=== PATIENT | male | born 1955 | race Caucasian/White ===

== ENCOUNTER 2020-04-26 10:53 | Outpatient (REF) | payer BC, SELFPAY ==
--- NOTE | 2020-04-26 | US_ITS ---
EXAMINATION: US EXTRACRANIAL CAROTID DUPLEX, BILATERAL CLINICAL INFORMATION: Dizziness, hypertension and hyperlipidemia. COMPARISON: None TECHNIQUE: Real-time ultrasound and Doppler techniques (integrating B-mode 2-D vascular images, Doppler spectral analysis and color-flow Doppler imaging) were utilized to interrogate the extracranial carotid arteries, the vertebral arteries and proximal subclavian arteries bilaterally. The degree of stenosis is determined by criteria similar to NASCET. FINDINGS: Right Side: 1. There is no significant atherosclerotic plaque seen in the bifurcation/proximal ICA region. 2. The common carotid artery PSV proximally is 106 cm/s and distally 107 cm/s. 3. The proximal internal carotid artery velocities are 122 cm/s systolic and 28 cm/s diastolic. 4. The proximal external carotid artery PSV is 141 cm/s. 5. The vertebral artery shows antegrade flow. 6. The subclavian artery waveforms are normal. Left Side: 1. There is mild atherosclerotic plaque seen in the bifurcation/proximal ICA region. 2. The common carotid artery PSV proximally is 104 cm/s and distally 107 cm/s. 3. The proximal internal carotid artery velocities are 62 cm/s systolic and 19 cm/s diastolic. 4. The proximal external carotid artery PSV is 75 cm/s. 5. The vertebral artery shows antegrade flow. 6. The subclavian artery waveforms are normal. IMPRESSION: 1. RIGHT: Normal right internal carotid artery without atherosclerotic plaque or hemodynamically significant stenosis. 2. LEFT: Minimal, non-hemodynamically significant stenosis of the proximal left internal carotid artery corresponding to a 0-49% stenosis by velocity criteria. 3. Antegrade flow seen via the bilateral vertebral arteries.
== END 2020-04-26 10:54 | disposition home or self-care (01) ==
LOC: HO.US 10:53
PROVIDERS: PCP Internal Medicine; Visit Provider Psychiatry & Neurology Neurology
DX: R42 Dizziness and giddiness (principal); I10 Essential (primary) hypertension; E78.5 Hyperlipidemia, unspecified
CPT/HCPCS: 93880

== ENCOUNTER 2020-05-13 11:24 | Outpatient (REF) | payer BC, SELFPAY ==
--- NOTE | 2020-05-13 11:28 | CT_ITS ---
EXAMINATION: CT HEAD WITHOUT CONTRAST CLINICAL INFORMATION: Dizziness COMPARISON: None TECHNIQUE: Contiguous axial imaging was performed from the skull base to vertex without intravenous administration of contrast. This CT examination was performed using dose optimization techniques as appropriate, variously including the following: *Automated exposure control *Adjustment of mA and/or kV according to patient size (this includes techniques or standardized protocols for targeted exams where dose is matched to indication/reason for exam; i.e. extremities or head) *Use of iterative reconstruction technique DLP: 742 mGy-cm FINDINGS: There is no evidence of acute intracranial hemorrhage or territorial infarction. There is encephalomalacia right frontal lobe. No abnormal mass effect or midline shift is seen. Sparks to white matter differentiation is well preserved. No extra-axial fluid collections are identified. The ventricles are normal in size. There is no abnormal attenuation within the brain parenchyma. The osseous structures and soft tissues are normal. The mastoid air cells and visualized portions of the paranasal sinuses are well aerated. There is wax visualized left ovary canal. CT/CT head/brain wo con IMPRESSION: No acute intracranial process seen. Encephalomalacia right frontal lobe from previous insult.
== END 2020-05-13 11:25 | disposition home or self-care (01) ==
LOC: HO.CT 11:24
PROVIDERS: Visit Provider Psychiatry & Neurology Neurology
DX: R42 Dizziness and giddiness (principal)
CPT/HCPCS: 70450

== ENCOUNTER → 2020-10-21 12:26 | Outpatient (REF) | payer BC, SELFPAY | LOC: HO.SL 12:26 | PROVIDERS: PCP Internal Medicine; Visit Provider Psychiatry & Neurology Neurology | DX: G47.33 Obstructive sleep apnea (adult) (pediatric) (principal) | CPT/HCPCS: 95806 ==

== ENCOUNTER 2021-07-22 10:36 | Outpatient (REF) | payer BC, SELFPAY ==
--- NOTE | ~2021-07-22 | MR_ITS ---
MRI OF THE BRAIN WITHOUT IV CONTRAST INDICATION: Progressive supranuclear palsy. Weakness. COMPARISON: Head CT 05/13/2020. TECHNIQUE: Multiplanar multisequence MR imaging of the brain was obtained without IV contrast. FINDINGS: Decreased sagittal midbrain width, decreased midbrain to mara width ratio, humming burden sign morphology of the midbrain, and morning glory morphology appearance of the midbrain, findings in keeping with the reported clinical history of progressive supranuclear palsy. There is no hydrocephalus, extra-axial surface collection, or herniation. There is redemonstrated chronic appearing encephalomalacia and gliosis within the high right frontal lobe. The major flow voids at the skull base are preserved. There is no acute infarct on diffusion-weighted imaging. There is no intracranial hemorrhage on the gradient recalled echo acquisition. The cerebellar tonsils are normally positioned. The craniocervical junction is normal. Osseous marrow signal intensity is homogenous. The visualized soft tissues are unremarkable. MR/MR head/brain wo con IMPRESSION: - Midbrain volume loss and morphology most suggestive of the clinically reported history of progressive supranuclear palsy. - There is redemonstrated chronic appearing encephalomalacia and gliosis within the high right frontal lobe.
[2021-07-22 11:44] LABS: MANUAL DIFF FLAG NO
[2021-07-22 12:16] LABS: Basophils Percent Auto 0.5 % (0-2); Eosinophils Absolute Auto 0.2 X10*3/uL (0.0-0.4); Hematocrit 51.9 % (42.0-52.0); Hemoglobin 17.2 g/dl (14.0-18.0); Imm Gran Abs Auto 0.02 X10*3/uL (0.00-0.03); Imm Gran Pct Auto 0.3 % (0.0-0.4); Lymphocytes Absolute Auto 1.4 X10*3/uL (1.2-4.9); Lymphocytes Percent Auto 18.6 % (20-40); Mean Corpuscular HGB Conc 33.1 g/dl (31.0-36.0); Mean Corpuscular Hemoglobin 31.6 pg (27.0-33.0); Mean Corpuscular Volume 95.2 fL (80.0-98.0); Mean Platelet Volume 10.4 fL (9.4-12.4); Monocytes Absolute Auto 0.7 X10*3/uL (0.1-1.2); Monocytes Percent Auto 9.7 % (2-11); Neutrophils Absolute Auto 5.1 x10*3/uL (2.0-8.3); Neutrophils Percent Auto 68.9 % (45-73); Platelet Count 216 X10*3/uL (160-400); Red Blood Count 5.45 X10*6/uL (4.60-5.80); Red Cell Distribution Width 13.4 % (11.0-16.0); White Blood Count 7.5 X10*3/uL (4.8-10.8)
[2021-07-22 12:41] LABS: Alanine Aminotransferase 45 U/L (0-40); Albumin Level 4.8 g/dL (3.5-5.0); Alkaline Phosphatase 77 U/L (39-117); Anion Gap 10 (12-20); Aspartate Amino Transferase 22 U/L (5-37); Bilirubin Total 0.7 mg/dL (0.0-1.0); Blood Urea Nitrogen 47 mg/dL (9-16); Calcium 10.3 mg/dL (8.4-10.2); Carbon Dioxide 29 mmol/L (22-29); Chloride 101 mmol/L (96-108); Estimated Glomerular Filt Rate 43; Glucose Random 108 mg/dL (60-115); Potassium 4.3 mmol/L (3.3-5.1); Sodium 136 mmol/L (135-145); Total Protein 7.8 g/dL (6.5-8.0)
== END 2021-07-22 10:37 | disposition home or self-care (01) ==
LOC: HO.MRI 10:36
PROVIDERS: Internal Medicine; PCP Internal Medicine; Visit Provider Psychiatry & Neurology Neurology
DX: D75.1 Secondary polycythemia (principal); G23.1 Progressive supranuclear ophthalmoplegia [Steele-Richardson-Olszewski]
CPT/HCPCS: 36415; 70551; 80053; 85025

== ENCOUNTER 2022-08-14 08:38 | Day surgery (SDC) | payer BC, SELFPAY ==
--- NOTE | 2022-08-13 14:40 | HO.ANESPROP2 ---
Documented by User: Shanthi Guerra NP 08/13/22 14:43 HPI - Anesthesia Eval Consult details Narrative: 66yo M for Colonoscopy PMFSH Active Problems Active Problems: All Active Problems (Updated 08/13/22 @ 12:54 by Gabriella Olivares RN) Erythrocytosis (Chronic) Past Medical History Medical History Benign colon polyp CVA (cerebral vascular accident) Diverticulosis Gout High cholesterol HTN (hypertension) Hyperlipemia Hyperuricemia Rosacea Family History Family History (Updated 05/14/20 @ 14:35 by Bev Zhou) Father Liver cancer Father Lung cancer Mother Breast cancer Surgical History Surgical History (Updated 08/14/22 @ 09:04 by Mariam Rosen, ARIAS) H/O cardiac catheterization H/O umbilical hernia repair History of surgery on arm History of tonsillectomy Hx of colonoscopy Social History Social History (Updated 05/14/20 @ 14:36 by Bev Zhou) Are you a primary child care sitter to a significant other at home: No Alcohol intake: current Alcohol intake frequency: a few times a week Alcohol type: hard liquor Patient Tobacco Use Status: Never used Tobacco Use of substances other than those prescribed or required for medical reasons: No Are you DNR?: No Advance Directives: No Advance Directives Information Provided: Yes Meds Allergies Allergy/AdvReac Type Severity Reaction Status Date / Time No Known Allergies Allergy Verified 08/14/22 09:01 [No Known Allergies*] Home Medications Medication Instructions Recorded Confirmed Last Taken Type allopurinol 300 mg tablet 300 mg PO DAILY 05/14/20 05/14/20 08/14/22 07:45 History clobetasol 0.05 % topical cream 1 applic topical BID 05/14/20 05/14/20 Unknown History lisinopril 20 1 tab PO DAILY 05/14/20 05/14/20 Unknown History mg-hydrochlorothiazide 12.5 mg tablet metoprolol succinate 100 mg 100 mg PO DAILY 05/14/20 05/14/20 08/14/22 07:45 History tablet,extended release 24 hr (Toprol XL) rosuvastatin 40 mg tablet (Crestor) 40 mg PO DAILY 05/14/20 05/14/20 08/14/22 07:45 History triamcinolone acetonide 0.5 % 1 applic topical DAILY 05/14/20 05/14/20 Unknown History topical cream aspirin 81 mg tablet,delayed 81 mg PO DAILY 08/13/22 08/13/22 08/07/22 History release atorvastatin 80 mg tablet 80 mg PO DAILY 08/13/22 08/13/22 Unknown History sertraline 100 mg tablet 100 mg PO DAILY 08/13/22 08/13/22 08/14/22 07:45 History Exam Exam Date and Time: August 13, 2022 144 Assessment and Plan Assessment Anesthesia Assessment: Chart Reviewed Documented by User: Aly Vidal MD 08/14/22 09:26 [facility] Past Medical History Medical History Benign colon polyp CVA (cerebral vascular accident) Diverticulosis Gout High cholesterol HTN (hypertension) Hyperlipemia Hyperuricemia Rosacea Family History Family History (Updated 05/14/20 @ 14:35 by Bev Zhou) Father Liver cancer Father Lung cancer Mother Breast cancer Family history of problems with anesthesia: No Surgical History Surgical History (Updated 08/14/22 @ 09:04 by Mariam Rosen RN) H/O cardiac catheterization H/O umbilical hernia repair History of surgery on arm History of tonsillectomy Hx of colonoscopy History of Problems with Anesthesia: No Social History Social History (Updated 05/14/20 @ 14:36 by Bev Zhou) Are you a primary child care sitter to a significant other at home: No Alcohol intake: current Alcohol intake frequency: a few times a week Alcohol type: hard liquor Patient Tobacco Use Status: Never used Tobacco Use of substances other than those prescribed or required for medical reasons: No Are you DNR?: No Advance Directives: No Advance Directives Information Provided: Yes Meds Allergies Allergy/AdvReac Type Severity Reaction Status Date / Time No Known Allergies Allergy Verified 08/14/22 09:01 [No Known Allergies*] Home Medications Medication Instructions Recorded Confirmed Last Taken Type allopurinol 300 mg tablet 300 mg PO DAILY 05/14/20 05/14/20 08/14/22 07:45 History clobetasol 0.05 % topical cream 1 applic topical BID 05/14/20 05/14/20 Unknown History lisinopril 20 1 tab PO DAILY 05/14/20 05/14/20 Unknown History mg-hydrochlorothiazide 12.5 mg tablet metoprolol succinate 100 mg 100 mg PO DAILY 05/14/20 05/14/20 08/14/22 07:45 History tablet,extended release 24 hr (Toprol XL) rosuvastatin 40 mg tablet (Crestor) 40 mg PO DAILY 05/14/20 05/14/20 08/14/22 07:45 History triamcinolone acetonide 0.5 % 1 applic topical DAILY 05/14/20 05/14/20 Unknown History topical cream aspirin 81 mg tablet,delayed 81 mg PO DAILY 08/13/22 08/13/22 08/07/22 History release atorvastatin 80 mg tablet 80 mg PO DAILY 08/13/22 08/13/22 Unknown History sertraline 100 mg tablet 100 mg PO DAILY 08/13/22 08/13/22 08/14/22 07:45 History Exam Airway Mallampati Class: II TM Dist: >3cm Neck ROM: Limited Heart: rrr Lungs: cta Assessment and Plan Final Anesthetic Review Family History of Problems with Anesthesia: No History of Problems with Anesthesia: No NPO: Yes ASA Class: III Final Preanesthetic Review: No Changes in Pt Med Stat, Meds/Allgs Chart Reviewed, Consent Obtained/Reviewed and Anes Risks/Benef Reviewed Patient Risk: Intermediate Procedure Risk: Low Anesthetic Plan Anesthetic Plan: MAC: and Agree w/ Assess. and Plan Disposition: Standard PACU
[2022-08-14 09:02] VITALS: BMI 34.9
[2022-08-14 09:16] VITALS: BP 126/72; PULSE 67; RESP 17; TEMP 36.2; O2SAT 94
[2022-08-14] MEDS: Lactated Ringers 1,000 ML 100 ML IVCONT (09:33)
--- NOTE | 2022-08-14 09:59 | MHC.SHP ---
Pre-Procedural Eval Section A Date of Service: 08/14/22 Section B Chief Complaint: screening Details of Present Illness: see h&p no changes Relevant Family History (Specify if Yes): No Relevant Social History: None Present Medications: see Short Stay Collaborative assessment Medical History: No relevant PMH History of Previous Operations: No relevant previous surgery Allergies: Allergies Allergy/AdvReac Type Severity Reaction Status Date / Time No Known Allergies Allergy Verified 08/14/22 09:01 [No Known Allergies*] Review of Systems Sugical H&P ROS: Negative: Constitution, Cardiovascular, Respiratory, Neurological, Psychiatric, Hem-Onc, Allergic/Immunologic, Gastrointestinal, Genitourinary, Musculoskeletal, Integumentary, Endocrine and Eyes/Ears/Nose/Throat Exam Surgical H&P Exam: Normal: HEENT, Normal: Heart, Normal: Lungs, Normal: Extremities, Normal: Abdomen, Normal: Skin and Normal: Neurological Plan Diagnosis/Plan: Unchanged I have reviewed the history and physical and performed a pertinent physical examination on my patient. No changes have occurred unless specified. Time Spent With Patient Time: Total time managing care of this patient today ____ minutes.
[2022-08-14 10:35] VITALS: BP 89/50; PULSE 66; RESP 16; TEMP 36.7; O2SAT 96
--- NOTE | 2022-08-14 10:37 | PM.OP ---
Brief Operative Note Date of Service: 08/14/22 Pre-op diagnosis: screening Post-op diagnosis: same Procedure: colonoscopy Surgeon: Rhys Vasquez Anesthesia: MAC Was an Bilingual Teacher Aide used for this Procedure?: No Estimated blood loss (mL): 2 Pathology: other Condition: stable Disposition: PACU
[2022-08-14 10:51] VITALS: BP 117/75; PULSE 64; RESP 18; TEMP 36.5; O2SAT 95
--- NOTE | 2022-08-14 21:37 | OP_ITS ---
SURGEON: Rhys Vasquez MD INDICATIONS: Colon cancer screening. PREOPERATIVE DIAGNOSIS: POSTOPERATIVE DIAGNOSIS: PROCEDURE PERFORMED: Colonoscopy to the terminal ileum with biopsy. ESTIMATED BLOOD LOSS: COMPLICATIONS: ANESTHESIA: Medications: Monitored anesthesia care. ASSISTANTS: SPECIMENS: DESCRIPTION OF PROCEDURE: A history and physical was performed. The risks and benefits of the procedure were explained to the patient. Informed consent was obtained. The procedure was performed on 08/14/2022. A digital rectal exam was performed. An Olympus pediatric video colonoscope was introduced into the rectum and advanced to the cecum without difficulty. The cecum was identified by transillumination, palpation, and identification of the ileocecal valve. Examination was performed. The scope was removed. He tolerated the procedure well and was returned to the recovery unit in stable condition. FINDINGS: The terminal ileum was examined and appeared normal. The visualized colonic mucosa was normal. The quality of the prep was good. There were total of 4 polyps identified and removed with the biopsy forceps, all measured less than 5 mm, one was located in the cecum, 2 at 80 cm and a rectal polyp was also removed. There was mild sigmoid diverticulosis. Retroflex examination showed moderate sized internal hemorrhoids. IMPRESSION: Colon polyps. RECOMMENDATION: Follow up the biopsy results. MD AIDEN Castano/MODL / [id number]
== END 2022-08-14 11:20 | disposition home or self-care (01) ==
PROVIDERS: PCP Internal Medicine; Visit Provider Internal Medicine Gastroenterology
PROC: 0DJD8ZZ Inspection of Lower Intestinal Tract, Via Natural or Artificial Opening Endoscopic (ICD-10-PCS; CPT 45378; principal; 2022-08-14 10:10)
DX: Z12.11 Encounter for screening for malignant neoplasm of colon (principal); Z80.0 Family history of malignant neoplasm of digestive organs; Z86.010 Personal history of colon polyps; D12.0 Benign neoplasm of cecum; D12.4 Benign neoplasm of descending colon; K62.1 Rectal polyp; K57.30 Diverticulosis of large intestine without perforation or abscess without bleeding; K64.8 Other hemorrhoids; I10 Essential (primary) hypertension; E78.00 Pure hypercholesterolemia, unspecified; M10.9 Gout, unspecified; Z86.73 Personal history of transient ischemic attack (TIA), and cerebral infarction without residual deficits; Z79.82 Long term (current) use of aspirin; Z79.899 Other long term (current) drug therapy
CPT/HCPCS: 45380; 88305

== ENCOUNTER 2022-11-16 10:28 | Outpatient (REF) | payer BC, SELFPAY ==
--- NOTE | ~2022-11-16 | XR_ITS ---
EXAMINATION: XR SHOULDER, RIGHT CLINICAL INFORMATION: Pain status-post fall. COMPARISON: None available. TECHNIQUE: AP external rotation, Grashey, scapular Y, and axillary views of the right shoulder. FINDINGS: There is bony demineralization. The glenohumeral joint is intact. The acromioclavicular and coracoclavicular intervals are normal. There is mild osteoarthritic change of the acromioclavicular joint. No fracture or dislocation is seen. There is mild distal acromial undersurface irregularity, and there is mild cortical irregularity of the greater tuberosity of the proximal right humerus. No soft tissue calcification or foreign body is seen. There is no right pneumothorax. XR/XR shoulder RT min 2V IMPRESSION: 1. There is mild osteoarthritic change of the right acromioclavicular joint. 2. Findings suggest possible mild right rotator cuff impingement.
== END 2022-11-16 10:29 | disposition home or self-care (01) ==
LOC: HO.XRAY 10:28
PROVIDERS: PCP Internal Medicine; Visit Provider Internal Medicine
DX: Z91.81 History of falling (principal)
CPT/HCPCS: 73030

== ENCOUNTER → 2024-03-15 13:36 | Outpatient (RCR) | payer BC, SELFPAY ==
[2020-05-14 14:24] VITALS: BP 169/90; PULSE 108; RESP 20; TEMP 37.1; O2SAT 96
[2020-05-14 14:25] VITALS: BMI 38.8
--- NOTE | 2020-05-14 14:53 | PM.HEMONCCN ---
Subjective - Subjective Chief complaint: Abnormal blood test Consult date: 05/14/20 Primary Care Provider: Annette Kan MD HPI - Consult Narrative Reason for consult: Erythrocytosis Narrative: Luis Eduardo Ling is a 64 year old male referred for evaluation of erythrocytosis noted on routine blood work. Patient states that he was not aware of this previously. CBC in January and February 2019 revealed hemoglobin of 18.3 and 18.9 respectively. He is a lifelong nonsmoker, denies any history of COPD or sleep apnea. He denies any symptoms such as fever, chills, night sweats, unexplained weight loss, pruritus or facial flushing. He has not been started on any new medications. Review of Systems - Constitutional Reports no additional constitutional complaints, Denies excessive sweating, Denies fatigue, Denies fever(s), Denies poor appetite - Cardiovascular Reports no additional cardiovascular complaints - Respiratory Reports no additional respiratory complaints - Gastrointestinal Reports no additional gastrointestinal complaints Oncology Screenings - ECOG Performance Status ECOG Performance Status: 1 [facility] Medical History: Medical History (Last Updated 05/14/20 @ 14:55 by Vickie Leon MD) Benign colon polyp Gout High cholesterol HTN (hypertension) Hyperlipemia Hyperuricemia Rosacea Family History: Family History (Last Updated 05/14/20 @ 14:35 by Bev Zhou) Father Liver cancer Father Lung cancer Mother Breast cancer Surgical History: Surgical History (Last Updated 05/14/20 @ 14:33 by Bev Zhou) H/O umbilical hernia repair Smoking status: Never smoker Alcohol intake: current Alcohol intake frequency: a few times a week Previous occupational history: french tutor at [employer] Home Medications and Allergies Home Medications Medication Instructions Recorded Confirmed Type allopurinol 300 mg PO DAILY 05/14/20 05/14/20 History clobetasol 1 applic TOPICAL BID 05/14/20 05/14/20 History lisinopril-hydrochlorothiazide 1 tab PO DAILY 05/14/20 05/14/20 History metoprolol succinate 100 mg PO DAILY 05/14/20 05/14/20 History rosuvastatin 40 mg PO DAILY 05/14/20 05/14/20 History triamcinolone acetonide 1 applic TOPICAL DAILY 05/14/20 05/14/20 History Allergies Allergy/AdvReac Type Severity Reaction Status Date / Time No Known Allergies Allergy Unverified 04/04/20 15:43 [No Known Allergies*] Physical Exam Vital signs: Vital Signs Temp 98.8 F 05/14/20 14:24 Pulse 108 H 05/14/20 14:24 Resp 20 05/14/20 14:24 BP 169/90 H 05/14/20 14:24 Pulse Ox 96 05/14/20 14:24 Intake & Output 05/13/20 05/14/20 05/14/20 18:59 06:59 18:59 Other: Weight 96.3 kg Weight 96.3 kg - Constitutional Present: no acute distress - Routine HEENT Exam Head: Present: normal inspection Eye: Present: EOMI - Routine Neck Exam Present: supple. Absent: JVD, lymphadenopathy - Routine Respiratory Exam Present: CTAB - Routine Cardiovascular Exam Cardiovascular: Present: RRR, S1, S2 - Routine Abdominal Exam Present: organomegaly, soft - Routine Extremities Exam Absent: pedal edema - Routine Skin Exam Comments: Facial erythema secondary to rosacea - Routine Neurological Exam Present: alert, oriented X3 Assessment and Plan (1) Erythrocytosis Status: Acute This is a 64-year-old male with chronic intermittent erythrocytosis. Blood work in February 2020 revealed hemoglobin of 17.3 gram/dL with hematocrit of 52.3%. Normal WBC and platelet count. He is a nonsmoker and does not have any underlying lung problems such as COPD or sleep apnea. He had a CT abdomen/pelvis in February 2019 which was negative for any renal neoplasms, he did have kidney stones. Causes of erythrocytosis such as polycythemia vera has to be ruled out. Blood work which includes serum erythropoietin level and JAK2 mutation has been ordered. Secondary erythrocytosis could be seen with certain tumors, hypoxemia related to lung problems and smoking. Certain Hereditary causes for erythrocytosis related to mutations in erythropoietin receptor can also be seen. Depending on above blood work, further recommendations to be made. I thank you very much for this consultation. Follow-up in 1 month.
--- NOTE | 2020-05-21 09:38 | MHC.HEMONCSW ---
LETTER SENT TO [place] DEPT. AT [facility] FOR A ROCKY 2 TEST. REASON....ADVANCED BENEFIT DETERMINATION. WAIT DECISION, COULD BE 2-3 WEEKS.
[2020-06-11 12:53] LABS: MANUAL DIFF FLAG NO
[2020-06-11 13:00] LABS: Basophils Percent Auto 0.6 % (0-2); Eosinophils Absolute Auto 0.1 X10*3/uL (0.0-0.4); Eosinophils Percent Auto 1.4 % (0-4); Hematocrit 49.3 % (42-52); Hemoglobin 16.7 g/dl (14.0-18.0); Imm Gran Abs Auto 0.02 X10*3/uL (0.00-0.03); Imm Gran Pct Auto 0.3 % (0.0-0.4); Immature Retic Fraction 14.7 % (2.3-13.4); Lymphocytes Absolute Auto 1.3 X10*3/uL (1.2-4.9); Mean Corpuscular HGB Conc 33.9 g/dl (31.0-36.0); Mean Corpuscular Hemoglobin 31.7 pg (27.0-33.0); Mean Corpuscular Volume 93.5 fL (80-98); Mean Platelet Volume 10.2 fL (9.4-12.4); Monocytes Absolute Auto 0.5 X10*3/uL (0.1-1.2); Monocytes Percent Auto 7.3 % (2-11); Neutrophils Percent Auto 72.4 % (45-73); Platelet Count 191 X10*3/uL (160-400); Red Blood Count 5.27 X10*6/uL (4.60-5.80); Red Cell Distribution Width 13.4 % (11.0-16.0); Retic HGB Equivalent 37.3 pg (30.0-35.0); Reticulocyte Percent 1.8 % (0.5-1.8); Reticulocytes Absolute 0.096 X10*6/uL (0.026-0.095); White Blood Count 6.9 X10*3/uL (4.8-10.8)
--- NOTE | 2020-06-11 13:20 | MHC.HEMONCSW ---
SPOKE WITH CHRIS AT [facility]. ROCKY 2 APPROVED. AUTH# [id number] DATE RANGE....06/07 TO 12/05/20. ARIAS JULIEN SETTING APPT FOR THIS TEST WITH PT.
[2020-06-11 13:33] LABS: Alanine Aminotransferase 29 U/L (0-40); Albumin Level 4.2 g/dL (3.5-5.0); Alkaline Phosphatase 90 U/L (39-117); Anion Gap 12 (12-20); Aspartate Amino Transferase 20 U/L (5-37); Bilirubin Total 0.4 mg/dL (0.0-1.0); Blood Urea Nitrogen 23 mg/dL (9-16); Calcium 9.5 mg/dL (8.4-10.2); Carbon Dioxide 28 mmol/L (22-29); Chloride 103 mmol/L (96-108); Creatinine Clr Calc Pharmacy 73.2; Estimated Glomerular Filt Rate > 60; Glucose Random 103 mg/dL (60-115); Potassium 4.2 mmol/l (3.3-5.1); Sodium 139 mmol/L (135-145)
--- NOTE | 2020-06-11 16:22 | MHC.HEMONC ---
Pt here for labs. Was waiting for insurance authorization for JAKK 2 test. Had labs done and left, then phone call received by Avelina MOHAN that test was approved. Pt was called to schedule to come back for lab test, message left.
[2020-06-12 18:42] LABS: Erythropoietin (EPO) 21.7 mIU/mL (2.6-18.5)
--- NOTE | 2020-06-25 13:10 | PM.HEMONCPN ---
Medical Summary - Medical Summary Date of Service: 06/25/20 Chief complaint: Follow-up Medical Summary: Diagnosis: Erythrocytosis CBC in January and February 2019 revealed hemoglobin of 18.3 and 18.9 respectively. He is a lifelong nonsmoker, no history of COPD or sleep apnea. Interval History Interval history: Patient is here in follow-up. He is doing okay, a little concerned because of findings on a brain scan. He has memory problems, he seeing a neurologist for this. He denies any headache, dizziness, chest pain or shortness of breath. He is here for results of blood work from the last visit. He has been drinking more water lately. Review of Systems - Constitutional Reports no additional constitutional complaints - Eyes Reports no additional eye complaints - ENT Reports no additional ear, nose, mouth, and throat complaints - Cardiovascular Reports no additional cardiovascular complaints - Respiratory Reports no additional respiratory complaints - Gastrointestinal Reports no additional gastrointestinal complaints - Genitourinary Genitourinary: Reports no additional male genitourinary complaints - Musculoskeletal Reports no additional musculoskeletal complaints - Integumentary/Breasts Skin/Breast: Reports no additional skin complaints - Neurologic Reports no additional neurologic complaints - Psychiatric Reports no additional psychiatric complaints - Endocrine Reports no additional endocrine complaints - Hematologic/Lymphatic Reports no additional hematologic/lymphatic complaints - Allergic/Immunologic Reports no additional allergic/immunologic complaints [facility] Medical History: Medical History (Last Updated 05/14/20 @ 14:55 by Vicike Leon MD) Benign colon polyp Gout High cholesterol HTN (hypertension) Hyperlipemia Hyperuricemia Rosacea Family History: Family History (Last Updated 05/14/20 @ 14:35 by Bev Zhou) Father Liver cancer Father Lung cancer Mother Breast cancer Surgical History: Surgical History (Last Updated 05/14/20 @ 14:33 by Bev Zhou) H/O umbilical hernia repair Smoking status: Never smoker Home Medications and Allergies Home Medications Medication Instructions Recorded Confirmed Type allopurinol 300 mg PO DAILY 05/14/20 05/14/20 History clobetasol 1 applic TOPICAL BID 05/14/20 05/14/20 History lisinopril-hydrochlorothiazide 1 tab PO DAILY 05/14/20 05/14/20 History metoprolol succinate 100 mg PO DAILY 05/14/20 05/14/20 History rosuvastatin 40 mg PO DAILY 05/14/20 05/14/20 History triamcinolone acetonide 1 applic TOPICAL DAILY 05/14/20 05/14/20 History Allergies Allergy/AdvReac Type Severity Reaction Status Date / Time No Known Allergies Allergy Unverified 04/04/20 15:43 [No Known Allergies*] Exam Vital signs: Vital Signs Temp 98.8 F 05/14/20 14:24 Pulse 108 H 05/14/20 14:24 Resp 20 05/14/20 14:24 BP 169/90 H 05/14/20 14:24 Pulse Ox 96 05/14/20 14:24 Weight 96.3 kg Body Mass Index 38.8 - Constitutional Present: no acute distress - Routine HEENT Exam Head: Present: normal inspection - Routine Respiratory Exam Present: CTAB - Routine Cardiovascular Exam Cardiovascular: Present: RRR, S1, S2 - Routine Abdominal Exam Present: organomegaly, soft - Routine Extremities Exam Absent: pedal edema - Routine Neurological Exam Present: alert, oriented X3 Data - Labs CBC & Chem 7: 06/11/20 12:51 06/11/20 12:51 Labs: 06/11/20 12:51 Complete Blood Count Auto Diff Routine Comprehensive Met. Panel Routine Erythropoietin (EPO) Routine Reticulocyte Count Routine Laboratory Last Values WBC 6.9 X10*3/uL (4.8-10.8) 06/11/20 12:51 RBC 5.27 X10*6/uL (4.60-5.80) 06/11/20 12:51 Hgb 16.7 g/dl (14.0-18.0) 06/11/20 12:51 Hct 49.3 % (42-52) 06/11/20 12:51 MCV 93.5 fL (80-98) 06/11/20 12:51 MCH 31.7 pg (27.0-33.0) 06/11/20 12:51 MCHC 33.9 g/dl (31.0-36.0) 06/11/20 12:51 RDW 13.4 % (11.0-16.0) 06/11/20 12:51 Plt Count 191 X10*3/uL (160-400) 06/11/20 12:51 MPV 10.2 fL (9.4-12.4) 06/11/20 12:51 Immature Gran % (Auto) 0.3 % (0.0-0.4) 06/11/20 12:51 Neut % (Auto) 72.4 % (45-73) 06/11/20 12:51 Lymph % (Auto) 18.0 % (20-40) L 06/11/20 12:51 [place] % (Auto) 7.3 % (2-11) 06/11/20 12:51 Eos % (Auto) 1.4 % (0-4) 06/11/20 12:51 Baso % (Auto) 0.6 % (0-2) 06/11/20 12:51 Lymph # (Auto) 1.3 X10*3/uL (1.2-4.9) 06/11/20 12:51 [place] # (Auto) 0.5 X10*3/uL (0.1-1.2) 06/11/20 12:51 Eos # (Auto) 0.1 X10*3/uL (0.0-0.4) 06/11/20 12:51 Baso # (Auto) 0.0 X10*3/uL (0.0-0.2) 06/11/20 12:51 Abs Immat Gran (auto) 0.02 X10*3/uL (0.00-0.03) 06/11/20 12:51 Absolute Neuts (auto) 5.0 X10*3/uL (2.0-8.3) 06/11/20 12:51 Absolute Nucleated RBC 0.000 X10*3/uL (0.0-0.012) 06/11/20 12:51 Nucleated RBC % (auto) 0.0 /100WBC (0.0-0.2) 06/11/20 12:51 Absolute Retic 0.096 X10*6/uL (0.026-0.095) H 06/11/20 12:51 Percent Retic 1.8 % (0.5-1.8) 06/11/20 12:51 Immature Retic Fraction 14.7 % (2.3-13.4) H 06/11/20 12:51 Retic Hgb Equivalent 37.3 pg (30.0-35.0) H 06/11/20 12:51 Sodium 139 mmol/L (135-145) 06/11/20 12:51 Potassium 4.2 mmol/l (3.3-5.1) 06/11/20 12:51 Chloride 103 mmol/L (96-108) 06/11/20 12:51 Carbon Dioxide 28 mmol/L (22-29) 06/11/20 12:51 Anion Gap 12 (12-20) 06/11/20 12:51 BUN 23 mg/dL (9-16) H 06/11/20 12:51 Creatinine 1.00 mg/dL (0.5-1.4) 06/11/20 12:51 Estim Creat Clear Calc 73.2 06/11/20 12:51 Estimated GFR > 60 06/11/20 12:51 Random Glucose 103 mg/dL (60-115) 06/11/20 12:51 Calcium 9.5 mg/dL (8.4-10.2) 06/11/20 12:51 Erythropoietin 21.7 mIU/mL (2.6-18.5) H 06/11/20 12:51 Total Bilirubin 0.4 mg/dL (0.0-1.0) 06/11/20 12:51 AST 20 U/L (5-37) 06/11/20 12:51 ALT 29 U/L (0-40) 06/11/20 12:51 Alkaline Phosphatase 90 U/L (39-117) 06/11/20 12:51 Total Protein 7.0 g/dL (6.5-8.0) 06/11/20 12:51 Albumin 4.2 g/dL (3.5-5.0) 06/11/20 12:51 Progress Note: A/P (1) Erythrocytosis Status: Chronic Assessment and plan: 1. This is a 64-year-old male with chronic intermittent erythrocytosis. Blood work in May 2020 revealed hemoglobin of 16.7 gram/dL with hematocrit of 49.3%. This is an improvement from previous numbers. He has been hydrating himself better which could be a reason. Serum erythropoietin level is elevated suggesting secondary erythrocytosis. Rest of hematological workup he is pending. He had a CT abdomen/pelvis in February 2019 which was negative for any renal neoplasms, he did have kidney stones. I have asked him to start taking a baby aspirin. Follow-up in 3 months. - Time Spent With Patient Total time spent is greater than 50% in coordination of care (as documented) at patient's floor/unit and/or counseling patient: 15 - 24 minutes
[2020-07-04 18:23] LABS: JAK2 CALR Exon 9 Mutation Not Detected (Not Detected); JAK2 CSF3R Exon 14/17 Mutation Not Detected (Not Detected); JAK2 Indication Not Given; JAK2 MPL Exon 10 Mutation Not Detected (Not Detected); JAK2 V617F Mutation Not Detected (Not Detected)
== END | disposition home or self-care (01) ==
LOC: HO.ONC 05-14 13:47
PROVIDERS: PCP Internal Medicine; Referring Provider Internal Medicine; Visit Provider Internal Medicine
DX: D75.1 Secondary polycythemia (principal)
CPT/HCPCS: 36415; 80053; 81403; 82668; 85025; 85045; 99204; 99214

== ENCOUNTER 2024-10-25 10:14 | Outpatient (REF) | payer BC, SELFPAY ==
--- NOTE | ~2024-10-25 | XR_ITS ---
EXAMINATION: XR SHOULDER 2 OR MORE VIEWS LEFT HISTORY: FALL COMPARISON: There are no prior studies available for comparison. FINDINGS: Four views of the left shoulder are submitted. Osseous mineralization is normal. An intramedullary elijah is seen in the numerous. There is no fracture or dislocation. The glenohumeral joint is maintained. There is moderate degenerative change of the AC joint. Tiny soft tissue density and metallic fragments are seen about the shoulder which may be postoperative in nature. XR/XR shoulder LT min 2V IMPRESSION: No evidence of acute fracture of the left shoulder. Electronically signed by: Luis Eduardo Foy MD 10/25/2024 12:00 PM EDT
--- OUTSIDE RECORDS SUMMARY | 2024-10-25 11:34 | XMS_ITS | Clinical Summary ---
Author Organization [facility] Address [address] [place] [address] Phone Care Team Providers Care Ton Container Filler Name Role Phone Annette Kan MD Primary Care Provider [phone] Social History Tobacco Use Types Packs/Day Years Used Date Smoking Tobacco: Never Assessed Sex and Gender Information Value Date Recorded Sex Assigned at Not on file Legal Sex Male 10:58 PM EST Gender Identity Not on file Sexual Orientation Not on file Plan of Treatment Health Maintenance Due Date Last Done Comments DTaP,Tdap,and Td Vaccines (1 - Tdap) 1972 Pneumococcal Vaccine: 50+ Ye ars (1 of 1 - PCV) 10/24/2003 Zoster Vaccines (1 of 2) 10/24/2003 Abdominal Aortic Aneurysm (A AA) Screen 06/21/2022 Colorectal Cancer Screening: Colonoscopy 06/21/2022 Depression Screening 06/21/2022 Falls Risk Assessment 06/21/2022 Hepatitis C Screening 06/21/2022 Social Influencers of Health Screening 06/21/2022 COVID-19 Vaccine ( - 2023-2 5 season) 2024 Influenza Vaccine (#1) 2024 RSV Immunization Adult Patie nts (1 - 1-dose 75+ series) 2028 Cholesterol Screening (Lipid Panel) 07/20/2029 07/20/2024 HIB Vaccines Aged Out No longer eligi ble based on patient's age to complete this topic HPV Vaccines Aged Out No longer eligi ble based on patient's age to complete this topic Hepatitis A Vaccines Aged Out No long er eligible based on patient's age to complete this topic Hepatitis B Vaccines Aged Out No long er eligible based on patient's age to complete this topic IPV Vaccines Aged Out No longer eligi ble based on patient's age to complete this topic MMR Vaccines Aged Out No longer eligi ble based on patient's age to complete this topic Meningococcal ACWY Vaccine Aged Out N o longer eligible based on patient's age to complete this topic Meningococcal B Vaccine Aged Out No l onger eligible based on patient's age to complete this topic RSV Immunization Patients Un henry 20 months Aged Out No longer eligible b ased on patient's age to complete this topic Varicella Vaccines Aged Out No longer eligible based on patient's age to complete this topic Procedures Procedure Name Priority Date/Time Associated Diagnosis Comments LIPID PANEL WITH REFLEX TO DIRECT LDL Routine 07/20/2024 9:40 AM EST Benign prostatic hyperplasia with lower urinary tract symptoms Other psoriasis Progressive supranuclear ophthalmoplegia (avmebm-Zdbjpdifyo-xlvh ewski) ([facility]) Pure hypercholesterolemia, unspecified from Last 3 Months or Most Recently Relevant to Health Maintenance Results * (ABNORMAL) Lipid panel with reflex to direct LDL (07/20/2024 9:40 AM EST) Cholesterol 182 0 - 200 mg/dL LAB CHEMISTRY METHOD 07/20/2024 2:58 PM [facility] Triglycerides 83 0 - 150 mg/dL LAB CHEMISTRY METHOD 07/20/2024 2:58 PM [facility] HDL 57 >=40 mg/dL LAB CHEMISTRY METHOD 07/20/2024 2:58 PM [facility] LDL Calculated 108(H) 0 - 100 mg/dL LAB CHEMISTRY METHOD 07/20/2024 2:58 PM [facility] VLDL Cholesterol Ke 16.6 mg/dL LAB CHEMISTRY METHOD 07/20/2024 2:58 PM [facility] Non HDL Chol. (LDL+VLDL) 125 <145 mg/dL LAB CHEMISTRY METHOD 07/20/2024 2:58 PM [facility] Chol/HDL Ratio 3.2 0.0 - 4.4 LAB CHEMISTRY METHOD 07/20/2024 2:58 PM [facility] Blood Venous blood specimen / Unknown 07/20/2024 9:40 AM EST 07/20/2024 2:14 PM EST us Annette Kan MD LAB BLOOD ORDERABLES Final Re sult [facility] [place] ([facility]) [facility] [address] [place] [address], [place] [phone] from Last 3 Months or Most Recently Relevant to Health Maintenance Insurance MEDICARE [facility] Care Teams Ton Container Filler Relationship Specialty Start Date End Date Annette Kan MD [address] [place] [address] [place] [address] PCP - General Internal Medicine 07/20/24
--- OUTSIDE RECORDS SUMMARY | 2024-10-25 11:34 | XMS_ITS | Encounter Summary ---
Author Organization [facility] Address [address] [place] [address] Care Team Providers Care Channel Cementer Outsole Machine Name Role Phone Annette Kan MD Primary Care Provider [phone] Encounter Details Date Type Department Care Team (Latest Contact Info) Description 07/20/2024 Lab Requisition [facility] - Main Lab [address] [facility] [place] [address] Annette Kan MD [address] [place] [address] [place] [address] Benign prostatic hyperplasia with lower urinary tract symptoms; Other psoriasis; Progressive supranuclear ophthalmoplegia (duxvls-Cjiyzyiqqm-xhal ewski) (CMS/HCC); Pure hypercholesterolemia, unspecified Social History Tobacco Use Types Packs/Day Years Used Date Smoking Tobacco: Never Assessed Sex and Gender Information Value Date Recorded Sex Assigned at Not on file Legal Sex Male 10:58 PM EST Gender Identity Not on file Sexual Orientation Not on file documented as of this encounter Plan of Treatment Not on file documented as of this encounter Procedures Procedure Name Priority Date/Time Associated Diagnosis Comments PROSTATE SPECIFIC ANTIGEN SCREEN Routine 07/20/2024 9:40 AM EST Benign prostatic hyperplasia with lower urinary tract symptoms Other psoriasis Progressive supranuclear ophthalmoplegia (spcqay-Urhnrdadal-vml zewski) (CMS/HCC) Pure hypercholesterolemia, unspecified LIPID PANEL WITH REFLEX TO DIRECT LDL Routine 07/20/2024 9:40 AM EST Benign prostatic hyperplasia with lower urinary tract symptoms Other psoriasis Progressive supranuclear ophthalmoplegia (luxrma-Pkgoxxlare-kqe zewski) (CMS/HCC) Pure hypercholesterolemia, unspecified CBC WITH AUTO DIFFERENTIAL Routine 07/20/2024 9:40 AM EST Benign prostatic hyperplasia with lower urinary tract symptoms Other psoriasis Progressive supranuclear ophthalmoplegia (kgowhg-Clbodcsebz-zks zewski) (CMS/HCC) Pure hypercholesterolemia, unspecified CBC AND DIFFERENTIAL Routine 07/20/2024 9:40 AM EST Benign prostatic hyperplasia with lower urinary tract symptoms Other psoriasis Progressive supranuclear ophthalmoplegia (yauyfv-Dshqqcecyw-ajg zewski) (CMS/HCC) Pure hypercholesterolemia, unspecified COMPREHENSIVE METABOLIC PANEL Routine 07/20/2024 9:40 AM EST Benign prostatic hyperplasia with lower urinary tract symptoms Other psoriasis Progressive supranuclear ophthalmoplegia (ekjern-Zdeolckpvw-lsf zewski) (CMS/HCC) Pure hypercholesterolemia, unspecified documented in this encounter Results * CBC auto differential (07/20/2024 9:40 AM EST) WBC 6.7 4.8 - 10.8 K/mcL LAB HEMETOLOGY METHOD 07/20/2024 2:35 PM [facility] RBC 4.80 4.50 - 5.50 M/mcL LAB HEMETOLOGY METHOD 07/20/2024 2:35 PM [facility] Hemoglobin 15.4 13.5 - 17.5 g/dL LAB HEMETOLOGY METHOD 07/20/2024 2:35 PM [facility] Hematocrit 46.5 42.0 - 54.0 % LAB HEMETOLOGY METHOD 07/20/2024 2:35 PM [facility] MCV 96.3 79.0 - 98.0 FL LAB HEMETOLOGY METHOD 07/20/2024 2:35 PM [facility] MCH 31.9 27.0 - 32.0 pcg LAB HEMETOLOGY METHOD 07/20/2024 2:35 PM [facility] MCHC 33.1 32.0 - 37.0 g/dL LAB HEMETOLOGY METHOD 07/20/2024 2:35 PM [facility] RDW 13.2 11.0 - 15.0 % LAB HEMETOLOGY METHOD 07/20/2024 2:35 PM [facility] Platelets 181 130 - 400 K/mcL LAB HEMETOLOGY METHOD 07/20/2024 2:35 PM [facility] MPV 10.7 7.0 - 11.0 FL LAB HEMETOLOGY METHOD 07/20/2024 2:35 PM [facility] NRBC 0.0 <1.0 % LAB HEMETOLOGY METHOD 07/20/2024 2:35 PM [facility] NRBC Absolute 0.00 <0.10 K/mcL LAB HEMETOLOGY METHOD 07/20/2024 2:35 PM [facility] Neutrophils Relative 65.9 % LAB HEMETOLOGY METHOD 07/20/2024 2:35 PM [facility] Lymphocytes Relative 21.2 % LAB HEMETOLOGY METHOD 07/20/2024 2:35 PM [facility] Monocytes Relative 9.5 % LAB HEMETOLOGY METHOD 07/20/2024 2:35 PM [facility] Eosinophils Relative 2.3 % LAB HEMETOLOGY METHOD 07/20/2024 2:35 PM [facility] Basophils Relative 0.8 % LAB HEMETOLOGY METHOD 07/20/2024 2:35 PM [facility] Immature Granulocytes Relative 0.3 % LAB HEMETOLOGY METHOD 07/20/2024 2:35 PM [facility] Neutrophils Absolute 4.40 1.50 - 7.00 K/mcL LAB HEMETOLOGY METHOD 07/20/2024 2:35 PM [facility] Lymphocytes Absolute 1.41 1.00 - 5.00 K/mcL LAB HEMETOLOGY METHOD 07/20/2024 2:35 PM [facility] Monocytes Absolute 0.63 0.20 - 1.00 K/mcL LAB HEMETOLOGY METHOD 07/20/2024 2:35 PM EST [facility] Eosinophils Absolute 0.15 0.00 - 0.50 K/[facility] LAB HEMETOLOGY METHOD 07/20/2024 2:35 PM EST [facility] Basophils Absolute 0.05 0.00 - 0.20 K/[facility] LAB HEMETOLOGY METHOD 07/20/2024 2:35 PM EST [facility] Immature Granulocytes Absolute 0.02 0.00 - 0.03 K/[facility] LAB HEMETOLOGY METHOD 07/20/2024 2:35 PM EST [facility] Blood Venous blood specimen / Unknown 07/20/2024 9:40 AM EST 07/20/2024 2:14 PM EST Annette Kan MD LAB BLOOD ORDERABLES Final Re sult Performing Organization Address [facility]/ZIP Co de Phone Number [facility] [address] [place] [address], [place] [phone] * Prostate specific antigen screen (07/20/2024 9:40 AM EST) Pathologist [facility] PSA 4.00 0.00 - 4.00 ng/mL LAB CHEMISTRY METHOD 07/20/2024 3:03 PM EST [facility] Blood Venous blood specimen / Unknown 07/20/2024 9:40 AM EST 07/20/2024 2:14 PM EST Narrative [facility] - 07/20/2024 3:03 PM EST The Siemens Advia Centaur Chemiluminescent Immunoassay is used. Results obtained with different assay methods or kits cannot be used interchangeably. Results cannot be interpreted as absolute evidence of the presence or absence of malignant disease. us Annette Kan MD LAB BLOOD ORDERABLES Final Re sult Performing Organization Address City/[facility]/ZIP Co de Phone Number [facility] [address] [place] [address], [place] [phone] * (ABNORMAL) Lipid panel with reflex to direct LDL (07/20/2024 9:40 AM EST) Cholesterol 182 0 - 200 mg/dL LAB CHEMISTRY METHOD 07/20/2024 2:58 PM EST [facility] Triglycerides 83 0 - 150 mg/dL LAB CHEMISTRY METHOD 07/20/2024 2:58 PM EST [facility] HDL 57 >=40 mg/dL LAB CHEMISTRY METHOD 07/20/2024 2:58 PM EST [facility] LDL Calculated 108(H) 0 - 100 mg/dL LAB CHEMISTRY METHOD 07/20/2024 2:58 PM [facility] VLDL Cholesterol Ke 16.6 mg/dL LAB CHEMISTRY METHOD 07/20/2024 2:58 PM [facility] Non HDL Chol. (LDL+VLDL) 125 <145 mg/dL LAB CHEMISTRY METHOD 07/20/2024 2:58 PM EST [facility] Chol/HDL Ratio 3.2 0.0 - 4.4 LAB CHEMISTRY METHOD 07/20/2024 2:58 PM [facility] Blood Venous blood specimen / Unknown 07/20/2024 9:40 AM EST 07/20/2024 2:14 PM EST us Annette Kan MD LAB BLOOD ORDERABLES Final Re sult [facility] [address] [place] [address], [place] [phone] * Comprehensive metabolic panel (07/20/2024 9:40 AM EST) Pathologist [facility] Sodium 135 133 - 145 mmol/L LAB CHEMISTRY METHOD 07/20/2024 2:58 PM [facility] Potassium 4.0 3.5 - 5.5 mmol/L LAB CHEMISTRY METHOD 07/20/2024 2:58 PM [facility] Chloride 103 96 - 110 mmol/L LAB CHEMISTRY METHOD 07/20/2024 2:58 PM [facility] CO2 27 21 - 32 mmol/L LAB CHEMISTRY METHOD 07/20/2024 2:58 PM [facility] Anion Gap 5 3 - 11 LAB CHEMISTRY METHOD 07/20/2024 2:58 PM [facility] Glucose 88 70 - 100 mg/dL LAB CHEMISTRY METHOD 07/20/2024 2:58 PM [facility] BUN 20 5 - 25 mg/dL LAB CHEMISTRY METHOD 07/20/2024 2:58 PM [facility] Creatinine 0.93 0.70 - 1.30 mg/dL LAB CHEMISTRY METHOD 07/20/2024 2:58 PM [facility] eGFR 88 >=60 mL/min/1. 73m2 LAB CHEMISTRY METHOD 07/20/2024 2:58 PM [facility] Comment:Calculation based on the??Chronic Kidney Disease Epidemiology Collaboration (CKD-EPI) equation refit??without adjustment for race. BUN/Creatinine Ratio 21.5 LAB CHEMISTRY METHOD 07/20/2024 2:58 PM [facility] Calcium 9.7 8.5 - 10.5 mg/dL LAB CHEMISTRY METHOD 07/20/2024 2:58 PM [facility] AST (SGOT) 19 10 - 42 unit/L LAB CHEMISTRY METHOD 07/20/2024 2:58 PM [facility] ALT (SGPT) 39 10 - 60 unit/L LAB CHEMISTRY METHOD 07/20/2024 2:58 PM [facility] Alkaline Phosphatase 86 42 - 121 unit/L LAB CHEMISTRY METHOD 07/20/2024 2:58 PM [facility] Total Protein 7.5 6.0 - 8.0 g/dL LAB CHEMISTRY METHOD 07/20/2024 2:58 PM [facility] Albumin 4.1 3.2 - 5.0 g/dL LAB CHEMISTRY METHOD 07/20/2024 2:58 PM EST [facility] Total Bilirubin 0.6 0.0 - 1.4 mg/dL LAB CHEMISTRY METHOD 07/20/2024 2:58 PM EST [facility] Blood Venous blood specimen / Unknown 07/20/2024 9:40 AM EST 07/20/2024 2:14 PM EST us Annette Kan MD LAB BLOOD ORDERABLES Final Re sult [facility] [address] [place] [address], documented in this encounter Visit Diagnoses Diagnosis Benign prostatic hyperplasia with lower urinary tract symptoms Other psoriasis Progressive supranuclear ophthalmoplegia (Vignesh) Pure hypercholesterolemia, unspecified documented in this encounter Care Teams Channel Cementer Outsole Machine Relationship Specialty Start Date End Date Annette Kan MD [address] [place] [address] [place] [address] PCP - General Internal Medicine 07/20/24 documented as of this encounter
== END 2024-10-25 10:15 | disposition home or self-care (01) ==
LOC: HO.XRAY 10:14
PROVIDERS: PCP Internal Medicine; Visit Provider Internal Medicine
DX: M25.512 Pain in left shoulder (principal); Z91.81 History of falling
CPT/HCPCS: 73030

== ENCOUNTER → 2024-10-25 10:33 | Outpatient (BNV) | payer BC, SELFPAY | PROVIDERS: PCP Internal Medicine; Visit Provider Radiology Diagnostic Radiology | DX: M25.512 Pain in left shoulder (principal) | CPT/HCPCS: 73030 ==

== ENCOUNTER 2024-10-30 08:18 | Outpatient (REF) | payer BC, SELFPAY ==
--- OUTSIDE RECORDS SUMMARY | 2024-10-30 08:40 | XMS_ITS | Clinical Summary ---
Author Organization [facility] Address [address] [place] [address] Phone Care Team Providers Care Agricultural Extension Specialist Name Role Phone Annette Kan MD Primary Care Provider [phone] Social History Tobacco Use Types Packs/Day Years [...] - 2023-2 5 season) 2024 Influenza Vaccine (Season Ended) 2025 RSV Immunization Adult Patie nts (1 - [...] tract symptoms Other psoriasis Progressive supranuclear ophthalmoplegia (jrlwhs-Xkoimfsyeg-rrqe ewski) ([facility]) Pure hypercholesterolemia, unspecified from Last 3 Months [...] BLOOD ORDERABLES Final Re sult [facility]IN [place] ([facility]) [facility] [address] [place] [address], [place] [phone] from Last 3 Months or Most Recently Relevant to Health Maintenance Insurance MEDICARE [facility] Care Teams Agricultural Extension Specialist Relationship Specialty Start Date End Date Annette Kan MD [address] [place] [address] [place] [address] PCP - General Internal Medicine 07/20/24
--- OUTSIDE RECORDS SUMMARY | 2024-10-30 08:40 | XMS_ITS | Encounter Summary ---
Author Organization [facility] Address [address] [place] [address] Care Team Providers Care Certified Maintenance Welder Name Role Phone Annette Kan MD Primary Care Provider [phone] Encounter Details Date Type Department Care Team (Latest Contact Info) Description 07/20/2024 Lab Requisition [facility] - Main Lab [address] [facility] [place] [address] Annette Kan MD [address] [place] [address] [place] [address] Benign prostatic hyperplasia with lower urinary tract symptoms; Other psoriasis; Progressive supranuclear ophthalmoplegia (scspja-Qrxgqbfnpw-tpzx ewski) (CMS/HCC V24, CMS/HCC V28); Pure hypercholesterolemia, unspecified Social History Tobacco Use [...] tract symptoms Other psoriasis Progressive supranuclear ophthalmoplegia (cnzwum-Putxbocbal-hrl zewski) (CMS/[facility]ERLY [facility]) Pure hypercholesterolemia, unspecified LIPID PANEL WITH REFLEX TO DIRECT LDL Routine 07/20/2024 9:40 AM EST Benign prostatic hyperplasia with lower urinary tract symptoms Other psoriasis Progressive supranuclear ophthalmoplegia (qjhxzl-Yopuezzabx-sjm zewski) (CMS/[facility]) Pure hypercholesterolemia, unspecified CBC WITH AUTO DIFFERENTIAL Routine 07/20/2024 9:40 AM EST Benign prostatic hyperplasia with lower urinary tract symptoms Other psoriasis Progressive supranuclear ophthalmoplegia (cjpnol-Vyfsfnnnit-vzu zewski) (CMS/HCC) Pure hypercholesterolemia, unspecified CBC AND DIFFERENTIAL Routine 07/20/2024 9:40 AM EST Benign prostatic hyperplasia with lower urinary tract symptoms Other psoriasis Progressive supranuclear ophthalmoplegia (yvupkl-Inogricbmf-rqs zewski) (CMS/HCC) Pure hypercholesterolemia, unspecified COMPREHENSIVE METABOLIC PANEL Routine 07/20/2024 9:40 AM EST Benign prostatic hyperplasia with lower urinary tract symptoms Other psoriasis Progressive supranuclear ophthalmoplegia (pqwpni-Cwrxzydooc-iir zewski) (CMS/HCC) Pure hypercholesterolemia, unspecified documented in this encounter Results * CBC auto differential (07/20/2024 9:40 AM EST) WBC 6.7 4.8 - 10.8 K/mcL LAB HEMETOLOGY METHOD 07/20/2024 2:35 PM [facility] RBC 4.80 4.50 - 5.50 M/mcL LAB HEMETOLOGY METHOD 07/20/2024 2:35 PM [facility] Hemoglobin 15.4 13.5 - 17.5 g/dL LAB HEMETOLOGY METHOD 07/20/2024 2:35 PM [facility] Hematocrit 46.5 42.0 - 54.0 % LAB HEMETOLOGY METHOD 07/20/2024 2:35 PM [facility] MCV 96.3 79.0 - 98.0 FL LAB HEMETOLOGY METHOD 07/20/2024 2:35 PM [facility] MCH 31.9 27.0 - 32.0 pcg LAB HEMETOLOGY METHOD 07/20/2024 2:35 PM [facility] MCHC 33.1 32.0 - 37.0 g/dL LAB HEMETOLOGY METHOD 07/20/2024 2:35 PM [facility] RDW 13.2 11.0 - 15.0 % LAB HEMETOLOGY METHOD 07/20/2024 2:35 PM [facility] Platelets 181 130 - 400 K/mcL LAB HEMETOLOGY METHOD 07/20/2024 2:35 PM [facility] MPV 10.7 7.0 - 11.0 FL LAB HEMETOLOGY METHOD 07/20/2024 2:35 PM [facility] NRBC 0.0 <1.0 % LAB HEMETOLOGY METHOD 07/20/2024 2:35 PM [facility] NRBC Absolute 0.00 <0.10 K/mcL LAB HEMETOLOGY METHOD 07/20/2024 2:35 PM [facility] Neutrophils Relative 65.9 % LAB HEMETOLOGY METHOD 07/20/2024 2:35 PM [facility] Lymphocytes Relative 21.2 % LAB HEMETOLOGY METHOD 07/20/2024 2:35 PM [facility] Monocytes Relative 9.5 % LAB HEMETOLOGY METHOD 07/20/2024 2:35 PM [facility] Eosinophils Relative 2.3 % LAB HEMETOLOGY METHOD 07/20/2024 2:35 PM [facility] Basophils Relative 0.8 % LAB HEMETOLOGY METHOD 07/20/2024 2:35 PM [facility] Immature Granulocytes Relative 0.3 % LAB HEMETOLOGY METHOD 07/20/2024 2:35 PM [facility] Neutrophils Absolute 4.40 1.50 - 7.00 K/mcL LAB HEMETOLOGY METHOD 07/20/2024 2:35 PM [facility] Lymphocytes Absolute 1.41 1.00 - 5.00 K/mcL LAB HEMETOLOGY METHOD 07/20/2024 2:35 PM [facility] Monocytes Absolute 0.63 0.20 - 1.00 K/mcL LAB HEMETOLOGY METHOD 07/20/2024 2:35 PM EST [facility] Eosinophils Absolute 0.15 0.00 - 0.50 K/mcL LAB HEMETOLOGY METHOD 07/20/2024 2:35 PM EST [facility] Basophils Absolute 0.05 0.00 - 0.20 K/mcL LAB HEMETOLOGY METHOD 07/20/2024 2:35 PM EST [facility] Immature Granulocytes Absolute 0.02 0.00 - 0.03 K/mcL LAB HEMETOLOGY METHOD 07/20/2024 2:35 PM EST [facility] Blood Venous blood specimen / Unknown 07/20/2024 9:40 AM EST 07/20/2024 2:14 PM EST us Annette Kan MD LAB BLOOD ORDERABLES Final Re sult Performing Organization Address [facility] de Phone Number [facility] [address] [place] [address], * Prostate specific antigen screen (07/20/2024 9:40 AM EST) PSA 4.00 0.00 - 4.00 ng/mL LAB CHEMISTRY METHOD 07/20/2024 3:03 PM EST [facility] Blood Venous blood specimen / Unknown 07/20/2024 9:40 AM EST 07/20/2024 2:14 PM EST Narrative [facility] - 07/20/2024 3:03 PM EST The Siemens Advia Centaur Chemiluminescent Immunoassay is used. Results obtained with different assay methods or kits cannot be used interchangeably. Results cannot be interpreted as absolute evidence of the presence or absence of malignant disease. us Annette Kan MD LAB BLOOD ORDERABLES Final Re sult Performing Organization Address City/[facility]/ZIP Co de Phone Number [facility] [address] [place] [address], [place] [phone] * (ABNORMAL) Lipid panel with reflex to direct LDL (07/20/2024 9:40 AM EST) Cholesterol 182 0 - 200 mg/dL LAB CHEMISTRY METHOD 07/20/2024 2:58 PM EST [facility] Triglycerides 83 0 - 150 mg/dL LAB CHEMISTRY METHOD 07/20/2024 2:58 PM EST [facility] HDL 57 >=40 mg/dL LAB CHEMISTRY METHOD 07/20/2024 2:58 PM [facility] LDL Calculated 108(H) 0 - 100 mg/dL LAB CHEMISTRY METHOD 07/20/2024 2:58 PM [facility] VLDL Cholesterol Ke 16.6 mg/dL LAB CHEMISTRY METHOD 07/20/2024 2:58 PM [facility] Non HDL Chol. (LDL+VLDL) 125 <145 mg/dL LAB CHEMISTRY METHOD 07/20/2024 2:58 PM EST [facility] Chol/HDL Ratio 3.2 0.0 - 4.4 LAB CHEMISTRY METHOD 07/20/2024 2:58 PM [facility] Blood Venous blood specimen / Unknown 07/20/2024 9:40 AM EST 07/20/2024 2:14 PM EST us Annette Kan MD LAB BLOOD ORDERABLES Final Re sult [facility] [address] [place] [address], [place] [phone] * Comprehensive metabolic panel (07/20/2024 9:40 AM EST) Pathologist [facility] Sodium 135 133 - 145 mmol/L LAB CHEMISTRY METHOD 07/20/2024 2:58 PM [facility] Potassium 4.0 3.5 - 5.5 mmol/L LAB CHEMISTRY METHOD 07/20/2024 2:58 PM [facility] Chloride 103 96 - 110 mmol/L LAB CHEMISTRY METHOD 07/20/2024 2:58 PM [facility] CO2 27 21 - 32 mmol/L LAB CHEMISTRY METHOD 07/20/2024 2:58 PM [facility] Anion Gap 5 3 - 11 LAB CHEMISTRY METHOD 07/20/2024 2:58 PM [facility] Glucose 88 70 - 100 mg/dL LAB CHEMISTRY METHOD 07/20/2024 2:58 PM [facility] BUN 20 5 - 25 mg/dL LAB CHEMISTRY METHOD 07/20/2024 2:58 PM [facility] Creatinine 0.93 0.70 - 1.30 mg/dL LAB CHEMISTRY METHOD 07/20/2024 2:58 PM [facility] eGFR 88 >=60 mL/min/1. 73m2 LAB CHEMISTRY METHOD 07/20/2024 2:58 PM [facility] Comment:Calculation based on the??Chronic Kidney Disease Epidemiology Collaboration (CKD-EPI) equation refit??without adjustment for race. BUN/Creatinine Ratio 21.5 LAB CHEMISTRY METHOD 07/20/2024 2:58 PM [facility] Calcium 9.7 8.5 - 10.5 mg/dL LAB CHEMISTRY METHOD 07/20/2024 2:58 PM [facility] AST (SGOT) 19 10 - 42 unit/L LAB CHEMISTRY METHOD 07/20/2024 2:58 PM [facility] ALT (SGPT) 39 10 - 60 unit/L LAB CHEMISTRY METHOD 07/20/2024 2:58 PM [facility] Alkaline Phosphatase 86 42 - 121 unit/L LAB CHEMISTRY METHOD 07/20/2024 2:58 PM [facility] Total Protein 7.5 6.0 - 8.0 g/dL LAB CHEMISTRY METHOD 07/20/2024 2:58 PM [facility] Albumin 4.1 3.2 - 5.0 g/dL LAB CHEMISTRY METHOD 07/20/2024 2:58 PM EST [facility] Total Bilirubin 0.6 0.0 - 1.4 mg/dL LAB CHEMISTRY METHOD 07/20/2024 2:58 PM EST [facility] Blood Venous blood specimen / Unknown 07/20/2024 9:40 AM EST 07/20/2024 2:14 PM EST us Annette Kan MD LAB BLOOD ORDERABLES Final Re sult [facility] [address] [place] [address], documented in this encounter Visit Diagnoses Diagnosis Benign prostatic hyperplasia with lower urinary tract symptoms Other psoriasis Progressive supranuclear ophthalmoplegia (nawlmj-Lemxusupfn-dcikyjtop) (CMS/HCC V24, CMS/HCC V28) Pure hypercholesterolemia, unspecified documented in this encounter Care Teams Certified Maintenance Welder Relationship Specialty Start Date End Date Annette Kan MD [address] [place] [address] [place] [address] PCP - General Internal Medicine 07/20/24 documented as of this encounter
[2024-10-30 10:08] LABS: Alanine Aminotransferase 26 U/L (0-40); Albumin Level 3.9 g/dL (3.5-5.0); Alkaline Phosphatase 66 U/L (39-117); Anion Gap 10 (12-20); Aspartate Amino Transferase 23 U/L (5-37); Bilirubin Total 0.4 mg/dL (0.0-1.0); Blood Urea Nitrogen 21 mg/dL (9-16); Calcium 9.6 mg/dL (8.4-10.2); Carbon Dioxide 25 mmol/L (22-29); Chloride 107 mmol/L (96-108); Cholesterol 142 mg/dL (<200); Estimated Glomerular Filt Rate > 60; Glucose Random 94 mg/dL (60-115); HDL Cholesterol 46 mg/dL (>40); LDL Cholesterol Calculated 84 mg/dL (<100); Potassium 4.1 mmol/L (3.3-5.1); Sodium 138 mmol/L (135-145); Triglycerides 62 mg/dL (<150)
== END 2024-10-30 08:19 | disposition home or self-care (01) ==
LOC: HO.LAB 08:18
PROVIDERS: PCP Internal Medicine; Visit Provider Internal Medicine
DX: Z00.01 Encounter for general adult medical examination with abnormal findings (principal); E78.00 Pure hypercholesterolemia, unspecified; G23.1 Progressive supranuclear ophthalmoplegia [Steele-Richardson-Olszewski]; I10 Essential (primary) hypertension; R21 Rash and other nonspecific skin eruption; R26.0 Ataxic gait
CPT/HCPCS: 36415; 80053; 80061

== ENCOUNTER 2025-02-21 10:07 | Inpatient (IN) | payer BC, MEDICARE, SELFPAY ==
--- NOTE | ~2025-02-21 | CT_ITS ---
EXAMINATION: CT CERVICAL SPINE WITHOUT IV CONTRAST HISTORY: falls confusion. TECHNIQUE: Helical CT of the cervical spine was performed per standard departmental protocol. Coronal and sagittal reformatted images were also evaluated. One or more of the following techniques was used for dose reduction: Automated exposure control, adjustment of the mA and/or kV according to patient size, use of iterative reconstruction technique. DLP: 315 mGy-cm COMPARISON: There are no prior studies available for comparison. FINDINGS: CERVICAL SPINE: The vertebral bodies maintain normal height and alignment without evidence of fracture or subluxation. There is diffuse mild degenerative disc disease with disc space narrowing and osteophyte formation. Evaluation for disc pathology is limited by lack of intrathecal contrast material, however. BRAIN: The visualized portion of the brain is unremarkable. SINUSES: The visualized paranasal sinuses, mastoid air cells and middle ear cavities are unremarkable. LUNG APICES: The visualized lung apices are clear. SOFT TISSUES: There are enlarged bilateral cervical lymph nodes measuring up to 1.2 cm on the right and 2.1 cm on the left. CT/CT cervical spine wo IV con IMPRESSION: 1. No evidence of fracture or malalignment of the cervical spine. 2. Bilateral cervical lymphadenopathy as described. Clinical correlation is recommended. Electronically signed by: Luis Eduardo Foy MD 02/21/2025 11:34 AM EDT
--- NOTE | ~2025-02-21 | XR_ITS ---
EXAMINATION: XR CHEST CLINICAL INFORMATION: weakness COMPARISON: 02/22/2019. TECHNIQUE: Frontal view of the chest was obtained. FINDINGS: The cardiac, hilar, and mediastinal contours are normal. The lungs are clear bilaterally. No pneumothorax or effusion. No focal osseous or soft tissue abnormality. XR/XR chest 1V IMPRESSION: No active pulmonary disease. Electronically signed by: Kolby Byrd MD 02/21/2025 10:31 AM EDT
--- NOTE | ~2025-02-21 | CT_ITS ---
EXAMINATION: CT ABDOMEN AND PELVIS WITH CONTRAST CLINICAL INFORMATION: COMPARISON: None available. TECHNIQUE: Multidetector volumetric images were obtained from the superior aspect of the liver through the pubic symphysis following administration 85 mL of Omnipaque 350 intravenous contrast. Sagittal and coronal reformatted images were obtained on the technologist's workstation. Oral contrast: No This CT examination was performed using dose optimization techniques as appropriate, variously including the following: *Automated exposure control *Adjustment of mA and/or kV according to patient size (this includes techniques or standardized protocols for targeted exams where dose is matched to indication/reason for exam; i.e. extremities or head) *Use of iterative reconstruction technique FINDINGS: LUNG BASES: -There is a new 8 mm nodule in the right middle lobe (series 3, image 2). This was not present in 2019. It is suspicious. There is mild cardiac enlargement. There is a prominent epicardial fat pad. There is a small type I hiatus hernia. There is dependent atelectasis in the posterior lung bases. LIVER, GALLBLADDER, AND BILIARY TREE: The liver is mildly enlarged and demonstrates diffuse fatty infiltration. No suspicious focal hepatic lesion. No intrahepatic biliary dilatation. The right hepatic lobe measures 19 cm in length. The gallbladder is unremarkable with no evidence of radiopaque gallstones, gallbladder wall thickening, or obvious pericholecystic inflammatory changes. PANCREAS: Unremarkable. SPLEEN: Splenomegaly, with AP diameter measuring 16.0 cm. ADRENAL GLANDS: Unremarkable. KIDNEYS AND URETERS: There are bilateral nonobstructing renal calculi measuring up to 5 mm in the right kidney lower pole. No hydronephrosis or renal mass. No striated nephrogram or perirenal stranding. No hydroureter. There are tiny cysts in the midpole of the right kidney. BLADDER: Unremarkable. GASTROINTESTINAL TRACT: The stomach, duodenum, and small bowel have a normal appearance. There is no bowel obstruction or bowel wall thickening. A normal appendix is visualized. Colon is normal in course and caliber. There is mild sigmoid diverticulosis. There is no wall thickening or inflammation. The rectum is normal. ABDOMINAL WALL: There are fat-containing small bilateral inguinal hernias. LYMPH NODES: No abnormal lymphadenopathy is present. VASCULAR: Mild to moderate atheromatous calcification of the aorta and iliac arteries. No aneurysm. PELVIC VISCERA: Mild prostatic enlargement. OSSEOUS STRUCTURES: No suspicious lytic or blastic bone lesions. There are spinal degenerative changes. CT/CT abdomen pelvis w IV con IMPRESSION: 1. Mild hepatomegaly and diffuse fatty infiltration. No suspicious lesion. 2. Splenomegaly. 3. There is an 8 mm nodule in the right middle lobe, not present in 2019. This is suspicious. 4. There are bilateral nonobstructing renal calculi measuring up to 5 mm. 5. There is mild sigmoid diverticulosis. There is no evidence of diverticulitis. 6. There are additional ancillary findings as discussed in the body of the report. Electronically signed by: Kolby Byrd MD 02/21/2025 04:10 PM EDT
--- NOTE | ~2025-02-21 | CT_ITS ---
EXAMINATION: CT HEAD WITHOUT IV CONTRAST HISTORY: falls confusion. TECHNIQUE: Unenhanced helical CT of the head was performed per standard departmental protocol. Coronal and sagittal reformats of the head were also evaluated. One or more of the following techniques was used for dose reduction: Automated exposure control, adjustment of the mA and/or kV according to patient size, use of iterative reconstruction technique. DLP: 723 mGy-cm COMPARISON: Comparison is made with the prior examination dated 05/13/2020. FINDINGS: BRAIN: There is diffuse prominence of the ventricular system and cortical sulci, consistent with atrophy. Periventricular and subcortical white matter hypodensities are noted which are nonspecific, but often seen in the setting of small vessel ischemic disease. Again seen is encephalomalacia in the right frontal lobe. There is no mass effect or midline shift. No intra- or extra-axial fluid collections are identified. SINUSES: The visualized paranasal sinuses are clear. The mastoid air cells and middle ear cavities are well pneumatized. ORBITS: The visualized orbits are unremarkable. BONES/SOFT TISSUES: The extracranial soft tissues are unremarkable. The calvarium is intact. No suspicious lytic or sclerotic lesions. CT/CT head/brain wo IV con IMPRESSION: No acute intracranial abnormality. Electronically signed by: Luis Eduardo Foy MD 02/21/2025 11:29 AM EDT
[2025-02-21 10:12] VITALS: BP 101/56; PULSE 82; RESP 18; TEMP 36.8; O2SAT 94
--- NOTE | 2025-02-21 10:13 | ED.WEAKNESS ---
HPI - Weakness General Chief complaint: General Medical Stated complaint: Falling all week, cant walk now, UTI Time Seen by Provider: 02/21/25 14:52 Source: patient Mode of arrival: wheelchair Limitations: physical limitation and other (CVA past speech affected) History of Present Illness ED Provider: Maura Vaca PA-C HPI Narrative: Patient presents to the emergency department today for evaluation of recurrent falls along with urinary symptoms. Past medical history significant for CVA which resulted in baseline weakness especially of his left side as well as speech phonation deficit. Patient transfers via wheelchair and walker. He has no use of his left hand. At baseline his speech is slurred. Patient lives at home with his significant other who helps to take care of him but she does need sometimes to work. Patient has recurrent falls when he is performing transfers between bed to chair/walker or from toilet to her wheelchair/walker. His reports that sometimes when he ambulates his legs just give out on him causing him to fall down but never completely to the ground. His last fall was approximately 1 week ago which occurred and she is not around. She had noticed any obvious injuries and he was able to get himself up but he did tell her that he was on the ground for 6 hours. Since last week he has had increasing urinary frequency for which they did place a call to his primary care provider who after doing a video call placed patient on Cipro and advised him to go to the ED if it it was unresolved. He has received 6 days of medicine for it. While patient's has noticed less urinary frequency there is still dribbling going on we have frequency but not as severe. She reports taking his temperature with a T-max of 99.5 degrees for which she reports as a fever. Patient denies any respiratory symptoms and he is not in any pain at this time. He is without any skin sores. He saw a neurologist a few months ago his next 1 is not until March for his ongoing hemiparesis. Patient's father from metastatic cancer it was in his liver: In lungs but he is not sure which originated from. Patient's past has not noticed any urethral discharge. No coughing or complaints of bowel discomfort. There has been no diarrhea. Patient wears depends at baseline. No recent hospitalizations. No EtOH use. Per although different than reported in triage patient's mental status is at his baseline only has weakness has increased. As patient had a hard time answering open-ended questions not asked him yes or no questions and with his right hand he squeezed for yes and did not squeeze for a no . MD Complaint: generalized weakness Related Data Home Medications ?Medication ?Instructions ?Recorded ?Confirmed allopurinol 300 mg tablet 300 mg PO DAILY 05/14/20 05/14/20 clobetasol 0.05 % topical cream 1 applic topical BID 05/14/20 05/14/20 lisinopril 20 1 tab PO DAILY 05/14/20 05/14/20 mg-hydrochlorothiazide 12.5 mg tablet metoprolol succinate 100 mg 100 mg PO DAILY 05/14/20 05/14/20 tablet,extended release 24 hr (Toprol XL) rosuvastatin 40 mg tablet (Crestor) 40 mg PO DAILY 05/14/20 05/14/20 triamcinolone acetonide 0.5 % 1 applic topical DAILY 05/14/20 05/14/20 topical cream aspirin 81 mg tablet,delayed 81 mg PO DAILY 08/13/22 08/13/22 release sertraline 100 mg tablet 100 mg PO DAILY 08/13/22 08/13/22 fluticasone propionate 50 1 spray intranasal DAILY 02/21/25 mcg/actuation nasal spray,suspension Allergies Allergy/AdvReac Type Severity Reaction Status Date / Time No Known Allergies (No Known Allergy Verified 02/21/25 10:14 Allergies*) Review of Systems Review of Systems: Yes all other systems are reviewed and are negative Neurologic: Reports Abnormal speech present PMFSH Past Medical History Attestation statement: The following information was validated with the patient. Source: obtained from family and nursing notes reviewed Medical History CVA (cerebral vascular accident) Diverticulosis Benign colon polyp Rosacea Gout Hyperuricemia High cholesterol Hyperlipemia HTN (hypertension) Surgical History Hx of colonoscopy H/O cardiac catheterization History of tonsillectomy History of surgery on arm H/O umbilical hernia repair Family History Family History Father Liver cancer Father Lung cancer Mother Breast cancer Social History Social History Are you a primary caregivers non medical to a significant other at home: No Alcohol intake: current Alcohol intake frequency: a few times a week Alcohol type: hard liquor Patient Tobacco Use Status: Never used Tobacco Advance Directives: No Advance Directives Information Provided: Yes Do you have a plan to hurt others: No Plan Physical Exam Exam: Exam: Patient is seen at bedside lying supine was able to do bed rolled to perform full skin exam. 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 He is alert and oriented unable to assess gait abdomen is protruded but nontender. There was no lesions on screening exam that appear acute including but not limited to any rashes or ulcers. Scrotum does not appear to be enlarged there is no urethral discharge meatus is patent no erythema. No decubitus ulcers are noted. Extremities nontender. Vital Signs: Vital Signs: Last Vital Signs Temp 98.2 F 02/21/25 10:12 Pulse 82 02/21/25 10:12 Resp 18 02/21/25 10:12 BP 101/56 L 02/21/25 10:12 Pulse Ox 94 02/21/25 10:12 O2 Del Method Room Air 02/21/25 10:12 BMI result Body Mass Index 30.0 Const: General: cooperative, comfortable, no acute distress, alert, awake and well groomed Nutritional Appearance: obese Orientation/consciousness: oriented to person and oriented to place Limitations: physical limitations, wheelchair and other limitations HEENT: Head: Yes normal to inspection and Yes No palpable skull fracture present Ears: hearing grossly normal bilaterally General nose exam: Normal external nose present Face and sinus: Yes normal facial exam and Yes Flattened naso-labial fold present (Right side baseline) Throat: Yes posterior oropharynx normal Eyes: General: appearance normal, both eyes and all related structures Alignment and Position: alignment normal Periorbital: periorbital findings normal Eyelids: Yes eyelids normal Conjunctivae: conjunctivae normal Sclerae: sclerae normal Corneas: corneas normal Pupils: Equal, round and reactive pupils present EOM: EOMs intact bilaterally Neck: Neck: Yes normal visual inspection, Yes full ROM and Yes no lymphadenopathy Lymphatic: no lymphadenopathy noted Chest: Chest palpation & inspection: normal inspection of the chest Resp: Effort & Inspection: normal respiratory effort and other (Speaking is mumbled baseline but mostly coherent) Auscultation: clear to auscultation bilaterally Cardio: Jugular venous distension: no JVD Rate: regular rate Rhythm: regular rhythm Peripheral pulses: Peripheral pulses 2+ throughout GI: Inspection: Yes distended and Yes obesity Percussion: Yes normal to percussion Auscultation: normal bowel sounds Rectal Exam - Male: Yes visual inspection normal and Yes normal sphincter tone : General: Yes bladder normal to inspection and Yes no CVA tenderness Male General Exam: Yes normal external exam Penis: normal penis and circumcised Meatus: meatus normal Scrotum: scrotum normal Testes: Testes normal Back/Spine/Pelvis: Back: no CVA tenderness Skin: General skin exam: no rashes or lesions noted Wounds: no wounds Neuro: General: oriented to person, oriented to place, no focal motor deficits (chronic left arm and leg) and Unable to assess gait Cranial nerves: Yes Equal, round and reactive pupils present Cognition (Neuro): normal cognition Speech: Abnormal speech present Gait exam (Neuro): Unable to assess gait Course Course Course Narrative: 69 yo male with PMH of HTN, prior stroke with aphasia/dysarthria, hx of UT - currently on cipro started on 02/15, he has fallen multiple times but no head injury while walking per his . He is not getting better and this has been about a week - had a fever and this AM. called PCP again and they said to come in due to blood in urine. Did not have prior urine sample. At this time will need labs, UA, CT head/cspine. this is a RAPID medical screening exam the rest of the history and physical exam is to be done by the main provider. 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 Failure to improve without patient Cipro no culture. Upon arrival to ED he is afebrile and nontoxic or septic appearing however labs ordered along with head CT imaging from the triage process giving unwitnessed fall from a week ago. He had a rapid medical exam. At this time differential includes ICH, pyelonephritis, UTI, rhabdo, failure to thrive, malignancy. Patient's lactic acid is normal sepsis is not expected. UA without pyuria but concern for prostatitis potential pyelonephritis and JASPREET in this setting of leukocytosis will start IVF ceftriaxone. Blood cultures ordered. Patient's labs show transaminitis in the setting of no prior history of hepatitis or liver failure. CK is normal less concerning for rhabdomyolysis causing this. Alk phos quite high he does have a family history of cancer. For this reason and concern for pyelo we will obtain CT abdomen and pelvis. He denies being in any pain at this time. Skin exam without any concern for soft tissue ulcer infection. CT of the abdomen and pelvis sig for: 1. Mild hepatomegaly and diffuse fatty infiltration. No suspicious lesion. 2. Splenomegaly. 3. There is an 8 mm nodule in the right middle lobe, not present in 2019. This is suspicious. 4. There are bilateral nonobstructing renal calculi measuring up to 5 mm. 5. There is mild sigmoid diverticulosis. There is no evidence of diverticulitis. 6. There are additional ancillary findings as discussed in the body of the report. Plan to admit for medicine for transaminitis potential hepatitis and prostatitis. We will defer GI or heme consult to hospitalist as it would not roll changer at this time. Consulted with hospitalist Dr. Pelaez, will admit to medicine for further care. Case was discussed with my attending physician Dr. Kumari who agrees with assessment and plan. Differential Diagnosis Differential Diagnoses: The differential diagnosis associated with the presentation includes see MDM Admission/Observation Consideration of admission/observation: Escalation of care including admission/observation considered Consult Healthcare Provider Management of the patient was discussed with: Hospitalist Lab Data MDM Lab Attestation statement: I reviewed the patient's lab results. 02/21/25 10:52 02/21/25 10:52 Labs: Lab Results 02/21/25 02/21/25 02/21/25 Range/Units 10:52 11:54 15:12 WBC 12.9 H (4.8-10.8) X10*3/uL RBC 4.47 L (4.60-5.80) X10*6/uL Hgb 13.7 L D (14.0-18.0) g/dl Hct 40.8 L D (42.0-52.0) % MCV 91.3 (80.0-98.0) fL MCH 30.6 (27.0-33.0) pg MCHC 33.6 (31.0-36.0) g/dl RDW 14.8 (11.0-16.0) % Plt Count 178 (160-400) X10*3/uL MPV 9.7 (9.4-12.4) fL Immature Gran % (Auto) Cancelled Neut % (Auto) Cancelled Lymph % (Auto) Cancelled [place] % (Auto) Cancelled Eos % (Auto) Cancelled Baso % (Auto) Cancelled Lymph # (Auto) Cancelled [place] # (Auto) Cancelled Eos # (Auto) Cancelled Baso # (Auto) Cancelled Abs Immat Gran (auto) Cancelled Absolute Neuts (auto) Cancelled Absolute Nucleated RBC 0.000 (0.0-0.012) X10*3/uL Nucleated RBC % (auto) 0.0 (0.0-0.2) /100WBC Neutrophils % (Manual) 28 L (45-73) % Band Neutrophils % 0 L (3-5) % Lymphocytes % (Manual) 49 H (20-40) % Atypical Lymphs % (Man) 12 H (0-6) % Monocytes % (Manual) 8 (2-11) % Basophils % (Manual) 3 H (0-2) % Abs Neuts (Manual) 3.6 (2.0-8.3) X10*3/uL Lymphocytes # (Manual) 6.3 H (1.2-4.9) X10*3/uL Atyp Lymphs # (Manual) 1.5 x10*3/uL Monocytes # (Manual) 1.0 (0.1-1.2) X10*3/uL Basophils # (Manual) 0.4 H (0.0-0.2) X10*3/uL Platelet Estimate NORMAL (NORMAL) Plt Morphology Comment NORMAL RBC Morphology NORMAL Sodium 136 (135-145) mmol/L Potassium 4.4 (3.3-5.1) mmol/L Chloride 104 (96-108) mmol/L Carbon Dioxide 23 (22-29) mmol/L Anion Gap 13 (12-20) BUN 21 H (9-16) mg/dL Creatinine 0.82 (0.5-1.4) mg/dL Estim Creat Clear Calc 78.6 Estimated GFR > 60 Random Glucose 96 (60-115) mg/dL Lactic Acid 1.2 (0.5-2.0) mmol/L Calcium 9.0 D (8.4-10.2) mg/dL Magnesium 2.3 (1.6-2.6) mg/dL Total Bilirubin 0.6 (0.0-1.0) mg/dL Direct Bilirubin 0.3 (0.0-0.5) mg/dL AST 105 H (5-37) U/L ALT 173 H (0-40) U/L Alkaline Phosphatase 258 H (39-117) U/L Ammonia 27 (13-55) umol/L Total Creatine Kinase 33 L (38-174) U/L Troponin I High Sens < 2.7 (<3.5-35.0) ng/L C-Reactive Protein 2.00 H (< or = 0.50) mg/dL Total Protein 7.1 (6.5-8.0) g/dL Albumin 3.8 (3.5-5.0) g/dL Lipase 28 (8-78) U/L Urine Color Yellow Urine Appearance Clear Urine pH 5.5 (5.0-9.0) Ur Specific [place] 1.020 (1.005-1.025) Urine Protein Negative (Neg-Trace) mg/dL Urine Glucose (UA) Negative (Negative) mg/dL Urine Ketones Negative (Negative) mg/dL Urine Blood Negative (Negative) Urine Nitrite Negative (Negative) Ur Leukocyte Esterase Negative (Negative) Influenza Type A (PCR) NEGATIVE (Negative) Influenza Type B (PCR) NEGATIVE (Negative) RSV RNA Qual (PCR) NEGATIVE (Negative) SARS-CoV-2 RNA (RT-PCR) NEGATIVE (Negative) 02/21/25 Range/Units 15:28 WBC (4.8-10.8) X10*3/uL RBC (4.60-5.80) X10*6/uL Hgb (14.0-18.0) g/dl Hct (42.0-52.0) % MCV (80.0-98.0) fL MCH (27.0-33.0) pg MCHC (31.0-36.0) g/dl RDW (11.0-16.0) % Plt Count (160-400) X10*3/uL MPV (9.4-12.4) fL Immature Gran % (Auto) Neut % (Auto) Lymph % (Auto) [place] % (Auto) Eos % (Auto) Baso % (Auto) Lymph # (Auto) [place] # (Auto) Eos # (Auto) Baso # (Auto) Abs Immat Gran (auto) Absolute Neuts (auto) Absolute Nucleated RBC (0.0-0.012) X10*3/uL Nucleated RBC % (auto) (0.0-0.2) /100WBC Neutrophils % (Manual) (45-73) % Band Neutrophils % (3-5) % Lymphocytes % (Manual) (20-40) % Atypical Lymphs % (Man) (0-6) % Monocytes % (Manual) (2-11) % Basophils % (Manual) (0-2) % Abs Neuts (Manual) (2.0-8.3) X10*3/uL Lymphocytes # (Manual) (1.2-4.9) X10*3/uL Atyp Lymphs # (Manual) x10*3/uL Monocytes # (Manual) (0.1-1.2) X10*3/uL Basophils # (Manual) (0.0-0.2) X10*3/uL Platelet Estimate (NORMAL) Plt Morphology Comment RBC Morphology Sodium (135-145) mmol/L Potassium (3.3-5.1) mmol/L Chloride (96-108) mmol/L Carbon Dioxide (22-29) mmol/L Anion Gap (12-20) BUN (9-16) mg/dL Creatinine (0.5-1.4) mg/dL Estim Creat Clear Calc Estimated GFR Random Glucose (60-115) mg/dL Lactic Acid (0.5-2.0) mmol/L Calcium (8.4-10.2) mg/dL Magnesium (1.6-2.6) mg/dL Total Bilirubin (0.0-1.0) mg/dL Direct Bilirubin (0.0-0.5) mg/dL AST (5-37) U/L ALT (0-40) U/L Alkaline Phosphatase (39-117) U/L Ammonia 36 (13-55) umol/L Total Creatine Kinase (38-174) U/L Troponin I High Sens (<3.5-35.0) ng/L C-Reactive Protein (< or = 0.50) mg/dL Total Protein (6.5-8.0) g/dL Albumin (3.5-5.0) g/dL Lipase (8-78) U/L Urine Color Urine Appearance Urine pH (5.0-9.0) Ur Specific [place] (1.005-1.025) Urine Protein (Neg-Trace) mg/dL Urine Glucose (UA) (Negative) mg/dL Urine Ketones (Negative) mg/dL Urine Blood (Negative) Urine Nitrite (Negative) Ur Leukocyte Esterase (Negative) Influenza Type A (PCR) (Negative) Influenza Type B (PCR) (Negative) RSV RNA Qual (PCR) (Negative) SARS-CoV-2 RNA (RT-PCR) (Negative) Independent Interpretation I performed an independent interpretation of an: EKG and CT Scan Interpretation: 80 bpm; No overt evidence of STEMI. No evidence of Brugada's sign, delta wave, epsilon wave, significantly prolonged QTc, or malignant arrhythmia. CXR normal. CT scan of cervical spine, head no bleed or fracture. CT of abd pelvis without evidence of free air or fluid and no fat stranding, SBO, or hydronephrosis Radiology Impression Discussion of test interpretation with radiology: I have reviewed the radiologist's reading. Radiologist Impression: CT: IMPRESSION: 1. Mild hepatomegaly and diffuse fatty infiltration. No suspicious lesion. 2. Splenomegaly. 3. There is an 8 mm nodule in the right middle lobe, not present in 2019. This is suspicious. 4. There are bilateral nonobstructing renal calculi measuring up to 5 mm. 5. There is mild sigmoid diverticulosis. There is no evidence of diverticulitis. 6. There are additional ancillary findings as discussed in the body of the report. Independent Historian Clinical information obtained from an independent historian. History obtained from or confirmed by: Spouse Tests considered The following testing was considered but not selected: CTA of chest abd nontender, stable BP, no concerns for aortic dissection/ PE Prescription Management I considered prescription management with: Antibiotic Chronic Conditions Patient?s care impacted by: Hypertension and Other Social Determinants Patient?s care significantly limited by Social Determinants of Health including: Other Social Determinant of Health Discharge Plan Discharge Clinical Impression: Transaminitis, Incidental lung nodule, greater than or equal to 8mm, Increased urinary frequency Patient Disposition: Admitted As Inpatient Print Language: [place]
--- NOTE | 2025-02-21 10:16 | ECG_ITS ---
Test Reason : WEAKNESS Blood Pressure : */* mmHG Vent. Rate : 81 BPM Atrial Rate : 81 BPM P-R Int : 164 ms QRS Dur : 74 ms QT Int : 396 ms P-R-T Axes : 12 7 26 degrees QTcB Int : 460 ms Artifact in tracing Normal sinus rhythm Normal ECG No previous ECGs available Referred By: Rosalba Kumari Electronically Signed By: REINA JACKMAN
[2025-02-21 11:08] LABS: Hematocrit 40.8 % (42.0-52.0); Hemoglobin 13.7 g/dl (14.0-18.0); Mean Corpuscular HGB Conc 33.6 g/dl (31.0-36.0); Mean Corpuscular Hemoglobin 30.6 pg (27.0-33.0); Mean Corpuscular Volume 91.3 fL (80.0-98.0); NRBC Abs Auto 0.000 X10*3/uL (0.0-0.012); NRBC Pct Auto 0.0 /100WBC (0.0-0.2); Platelet Count 178 X10*3/uL (160-400); Red Blood Count 4.47 X10*6/uL (4.60-5.80); White Blood Count 12.9 X10*3/uL (4.8-10.8)
[2025-02-21 11:24] LABS: Alanine Aminotransferase 173 U/L (0-40); Albumin Level 3.8 g/dL (3.5-5.0); Alkaline Phosphatase 258 U/L (39-117); Anion Gap 13 (12-20); Aspartate Amino Transferase 105 U/L (5-37); Blood Urea Nitrogen 21 mg/dL (9-16); Calcium 9.0 mg/dL (8.4-10.2); Carbon Dioxide 23 mmol/L (22-29); Chloride 104 mmol/L (96-108); Creatinine Clr Calc Pharmacy 78.6; Estimated Glomerular Filt Rate > 60; Lipase 28 U/L (8-78); Magnesium 2.3 mg/dL (1.6-2.6); Potassium 4.4 mmol/L (3.3-5.1); Sodium 136 mmol/L (135-145); Total Protein 7.1 g/dL (6.5-8.0)
[2025-02-21 11:33] LABS: Troponin-I High Sensitivity < 2.7 ng/L (<3.5-35.0)
[2025-02-21 11:41] LABS: Resp Syncy Virus RNA Qual PCR NEGATIVE (Negative); SARS COV2 PCR INHOUSE NEGATIVE (Negative)
[2025-02-21 11:42] LABS: Atypical Lymph Absolute Manual 1.5 x10*3/uL; Atypical Lymphs Percent Manual 12 % (0-6); Band Neutrophils Percent 0 % (3-5); Basophils Abs Manual 0.4 X10*3/uL (0.0-0.2); Basophils Percent Manual 3 % (0-2); Lymphocytes Absolute Manual 6.3 X10*3/uL (1.2-4.9); Lymphocytes Percent Manual 49 % (20-40); Monocytes Absolute Manual 1.0 X10*3/uL (0.1-1.2); Monocytes Percent Manual 8 % (2-11); Neutrophils Absolute Manual 3.6 X10*3/uL (2.0-8.3); Neutrophils Percent Manual 28 % (45-73)
[2025-02-21 11:46] LABS: RBC Morphology NORMAL
[2025-02-21 12:10] LABS: Ammonia 27 umol/L (13-55)
[2025-02-21 15:18] LABS: Appearance Urine Clear; Glucose Urine UA Negative (Negative); PH 5.5 (5.0-9.0); Specific Gravity - Urine 1.020 (1.005-1.025)
--- OUTSIDE RECORDS SUMMARY | 2025-02-21 15:35 | XMS_ITS | Encounter Summary ---
Author Organization [facility] Address [address] [place] [address] Care Team Providers Care Coal Passer Name Role Phone Annette Kan MD Primary Care Provider [phone] Encounter Details Date Type Department Care Team (Latest Contact Info) Description 07/20/2024 Lab Requisition [facility] - Main Lab [address] [facility] [facility] [place] [address] Annette Kan MD [address] [place] [address] [place] [address] Benign prostatic hyperplasia with lower urinary tract symptoms; Other psoriasis; Progressive supranuclear ophthalmoplegia (ncjgaa-Psjtkbcacc-rvec ewski) (CMS/HCC V24, CMS/HCC V28); Pure hypercholesterolemia, [...] tract symptoms Other psoriasis Progressive supranuclear ophthalmoplegia (ugvmgx-Ysqtvaawzf-onw zewski) (CMS/[facility]) Pure hypercholesterolemia, unspecified LIPID PANEL WITH REFLEX TO DIRECT LDL Routine 07/20/2024 9:40 AM EST Benign prostatic hyperplasia with lower urinary tract symptoms Other psoriasis Progressive supranuclear ophthalmoplegia (nplrwt-Kvrmhytgem-bfk zewski) (CMS/[facility]) Pure hypercholesterolemia, unspecified CBC WITH AUTO DIFFERENTIAL Routine 07/20/2024 9:40 AM EST Benign prostatic hyperplasia with lower urinary tract symptoms Other psoriasis Progressive supranuclear ophthalmoplegia (ctmhjj-Aujgypwepv-ulj zewski) (CMS/HCC) Pure hypercholesterolemia, unspecified CBC AND DIFFERENTIAL Routine 07/20/2024 9:40 AM EST Benign prostatic hyperplasia with lower urinary tract symptoms Other psoriasis Progressive supranuclear ophthalmoplegia (bleosj-Ltsjoshpej-fhp zewski) (CMS/HCC) Pure hypercholesterolemia, unspecified COMPREHENSIVE METABOLIC PANEL Routine 07/20/2024 9:40 AM EST Benign prostatic hyperplasia with lower urinary tract symptoms Other psoriasis Progressive supranuclear ophthalmoplegia (zbrdax-Nmrwcmsyye-fpi zewski) (CMS/HCC) Pure hypercholesterolemia, unspecified documented in this encounter Results * CBC auto differential (07/20/2024 9:40 AM EST) WBC 6.7 4.8 - 10.8 K/mcL LAB HEMETOLOGY METHOD 07/20/2024 2:35 PM [facility] RBC 4.80 4.50 - 5.50 M/mcL LAB HEMETOLOGY METHOD 07/20/2024 2:35 PM [facility] Hemoglobin 15.4 13.5 - 17.5 g/dL LAB HEMETOLOGY METHOD 07/20/2024 2:35 PM [facility] Hematocrit 46.5 42.0 - 54.0 % LAB HEMETOLOGY METHOD 07/20/2024 2:35 PM [facility] MCV 96.3 79.0 - 98.0 FL LAB HEMETOLOGY METHOD 07/20/2024 2:35 PM [facility] MCH 31.9 27.0 - 32.0 pcg LAB HEMETOLOGY METHOD 07/20/2024 2:35 PM [facility] MCHC 33.1 32.0 - 37.0 g/dL LAB HEMETOLOGY METHOD 07/20/2024 2:35 PM [facility] RDW 13.2 11.0 - 15.0 % LAB HEMETOLOGY METHOD 07/20/2024 2:35 PM [facility] Platelets 181 130 - 400 K/mcL LAB HEMETOLOGY METHOD 07/20/2024 2:35 PM [facility] MPV 10.7 7.0 - 11.0 FL LAB HEMETOLOGY METHOD 07/20/2024 2:35 PM [facility] NRBC 0.0 <1.0 % LAB HEMETOLOGY METHOD 07/20/2024 2:35 PM [facility] NRBC Absolute 0.00 <0.10 K/mcL LAB HEMETOLOGY METHOD 07/20/2024 2:35 PM [facility] Neutrophils Relative 65.9 % LAB HEMETOLOGY METHOD 07/20/2024 2:35 PM [facility] Lymphocytes Relative 21.2 % LAB HEMETOLOGY METHOD 07/20/2024 2:35 PM [facility] Monocytes Relative 9.5 % LAB HEMETOLOGY METHOD 07/20/2024 2:35 PM [facility] Eosinophils Relative 2.3 % LAB HEMETOLOGY METHOD 07/20/2024 2:35 PM [facility] Basophils Relative 0.8 % LAB HEMETOLOGY METHOD 07/20/2024 2:35 PM [facility] Immature Granulocytes Relative 0.3 % LAB HEMETOLOGY METHOD 07/20/2024 2:35 PM [facility] Neutrophils Absolute 4.40 1.50 - 7.00 K/mcL LAB HEMETOLOGY METHOD 07/20/2024 2:35 PM [facility] Lymphocytes Absolute 1.41 1.00 - 5.00 K/mcL LAB HEMETOLOGY METHOD 07/20/2024 2:35 PM [facility] Monocytes Absolute 0.63 0.20 - 1.00 K/mcL LAB HEMETOLOGY METHOD 07/20/2024 2:[address] [facility] Eosinophils Absolute 0.15 0.00 - 0.50 K/mcL LAB HEMETOLOGY METHOD 07/20/2024 2:[address] [facility] Basophils Absolute 0.05 0.00 - 0.20 K/mcL LAB HEMETOLOGY METHOD 07/20/2024 2:[address] [facility] Immature Granulocytes Absolute 0.02 0.00 - 0.03 K/mcL LAB HEMETOLOGY METHOD 07/20/2024 2:[address] [facility] Blood Venous blood specimen / Unknown 07/20/2024 9:40 AM EST 07/20/2024 2:14 PM EST us Annette Kan MD LAB BLOOD ORDERABLES Final Re sult Performing Organization Address [facility] de Phone Number [facility] [address] [place] [address], * Prostate specific antigen screen (07/20/2024 9:40 AM EST) PSA 4.00 0.00 - 4.00 ng/mL LAB CHEMISTRY METHOD 07/20/2024 3:[address] [facility] Blood Venous blood specimen / Unknown 07/20/2024 9:40 AM EST 07/20/2024 2:[address] [facility] - 07/20/2024 3:03 PM EST The Siemens Advia Centaur Chemiluminescent Immunoassay is used. Results obtained with different assay methods or kits cannot be used interchangeably. Results cannot be interpreted as absolute evidence of the presence or absence of malignant disease. us Annette Kan MD LAB BLOOD ORDERABLES Final Re sult Performing Organization Address City/[facility]/ZIP Co de Phone Number [facility] [address] [place] [address], [place] [phone] * (ABNORMAL) Lipid panel with reflex to direct LDL (07/20/2024 9:40 AM EST) Cholesterol 182 0 - 200 mg/dL LAB CHEMISTRY METHOD 07/20/2024 2:[address] [facility] Triglycerides 83 0 - 150 mg/dL LAB CHEMISTRY METHOD 07/20/2024 2:[address] [facility] HDL 57 >=40 mg/dL LAB CHEMISTRY METHOD 07/20/2024 2:58 PM [facility] LDL Calculated 108(H) 0 - 100 mg/dL LAB CHEMISTRY METHOD 07/20/2024 2:58 PM [facility] VLDL Cholesterol Ke 16.6 mg/dL LAB CHEMISTRY METHOD 07/20/2024 2:58 PM [facility] Non HDL Chol. (LDL+VLDL) 125 <145 mg/dL LAB CHEMISTRY METHOD 07/20/2024 2:[address] [facility] Chol/HDL Ratio 3.2 0.0 - 4.4 LAB CHEMISTRY METHOD 07/20/2024 2:58 PM [facility] Blood Venous blood specimen / Unknown 07/20/2024 9:40 AM EST 07/20/2024 2:14 PM EST us Annette Kan MD LAB BLOOD ORDERABLES Final Re sult [facility] [address] [place] [address], [place] [phone] * Comprehensive metabolic panel (07/20/2024 9:40 AM EST) Pathologist [facility] Sodium 135 133 - 145 mmol/L LAB CHEMISTRY METHOD 07/20/2024 2:58 PM [facility] Potassium 4.0 3.5 - 5.5 mmol/L LAB CHEMISTRY METHOD 07/20/2024 2:58 PM [facility] Chloride 103 96 - 110 mmol/L LAB CHEMISTRY METHOD 07/20/2024 2:58 PM [facility] CO2 27 21 - 32 mmol/L LAB CHEMISTRY METHOD 07/20/2024 2:58 PM [facility] Anion Gap 5 3 - 11 LAB CHEMISTRY METHOD 07/20/2024 2:58 PM [facility] Glucose 88 70 - 100 mg/dL LAB CHEMISTRY METHOD 07/20/2024 2:58 PM [facility] BUN 20 5 - 25 mg/dL LAB CHEMISTRY METHOD 07/20/2024 2:58 PM [facility] Creatinine 0.93 0.70 - 1.30 mg/dL LAB CHEMISTRY METHOD 07/20/2024 2:58 PM [facility] eGFR 88 >=60 mL/min/1. 73m2 LAB CHEMISTRY METHOD 07/20/2024 2:58 PM [facility] Comment:Calculation based on the Chronic Kidney Disease Epidemiology Collaboration (CKD-EPI) equation refit without adjustment for race. BUN/Creatinine Ratio 21.5 LAB CHEMISTRY METHOD 07/20/2024 2:58 PM [facility] Calcium 9.7 8.5 - 10.5 mg/dL LAB CHEMISTRY METHOD 07/20/2024 2:58 PM [facility] AST (SGOT) 19 10 - 42 unit/L LAB CHEMISTRY METHOD 07/20/2024 2:58 PM [facility] ALT (SGPT) 39 10 - 60 unit/L LAB CHEMISTRY METHOD 07/20/2024 2:58 PM [facility] Alkaline Phosphatase 86 42 - 121 unit/L LAB CHEMISTRY METHOD 07/20/2024 2:58 PM [facility] Total Protein 7.5 6.0 - 8.0 g/dL LAB CHEMISTRY METHOD 07/20/2024 2:58 PM [facility] Albumin 4.1 3.2 - 5.0 g/dL LAB CHEMISTRY METHOD 07/20/2024 2:[address] [facility] Total Bilirubin 0.6 0.0 - 1.4 mg/dL LAB CHEMISTRY METHOD 07/20/2024 2:[address] [facility] Blood Venous blood specimen / Unknown 07/20/2024 9:40 AM EST 07/20/2024 2:14 PM EST us Annette Kan MD LAB BLOOD ORDERABLES Final Re sult [facility] [address] [place] [address], documented in this encounter Visit Diagnoses Diagnosis Benign prostatic hyperplasia with lower urinary tract symptoms Other psoriasis Progressive supranuclear ophthalmoplegia (gvhkzq-Iihkslhsqk-wuncjwuje) (CMS/[facility] V24, CMS/[facility] V28) Pure hypercholesterolemia, unspecified documented in this encounter Care Teams Coal Passer Relationship Specialty Start Date End Date Annette Kan MD [address] [place] [address] [place] [address] PCP - General Internal Medicine 07/20/24 documented as of this encounter
[2025-02-21 15:49] LABS: Ammonia 36 umol/L (13-55)
[2025-02-21] MEDS: iohexoL 350 MG/ML 100 ML INFUS..BTL IV (15:51)
[2025-02-21 18:40] VITALS: BP 111/58; PULSE 82; RESP 18; TEMP 36.6; O2SAT 94
--- NOTE | 2025-02-21 18:40 | PC.NURSE ---
Pt coming in from home with increased weakness and confusion. per he has been too weak to walk and has been not acting himself at home. he normallly is able to walk short distances and uses w/c for long distances. today in ER he is alert and oriented to self, pt falls asleep quickly when not stimulated. can follow some simple direction. at bedside very helpful in care. 20g placed in R forearm. workup shows transaminitis and multiple findings on CT including pyelo and non obstructing kidney stones. ceftriaxone given via IV. urinal to void, sometimes incontinent.
--- NOTE | 2025-02-21 18:55 | PM.IMHP ---
History of Present Illness Date of Service: 02/21/25 Attending physician on admission: Adilene Avendano Chief Complaint: Confusion Luis Eduardo Ling is a 69 years old man with past medical history significant for of CVA, wheelchair-bound, hyperlipidemia and essential hypertension presents to the emergency department accompanied by his for evaluation for multiple events of falls. He was recently diagnosed with UTI by his primary care physician and received a prescription of Cipro, he took the whole course except for one pills. She had an episode of low grade fever, 99.5. He has been experiencing pelvic discomfort. Last his noted that his urine was very dark and also noted blood on his diaper. She also noted that he has been confused. He has currently speech difficulty. Denied focal weakness, loss of consciousness, nausea, vomiting, diarrhea, headache, chest pain, shortness on breath, palpitations or cough. There is no history of alcohol abuse, tobacco smoking or illicit drug use. In the ED, he was found to have stable vital signs. Blood workup showed leukocytosis of 12.9. Hemoglobin is 13.7 and platelets 178. There is no lactic acidosis. CRP is 2.0. There are no electrolyte imbalances. BUN is 21 and creatinine 0.82. AST, ALT and alk-phos are elevated. Bilirubin is normal. Ammonia is 27. CPK is low. Urinalysis is normal. Abdominal pelvis CT scan with IV contrast showed mild hepatomegaly with diffuse fatty infiltration, splenomegaly, right middle lobe nodule, sigmoid diverticulosis without diverticulitis. Head CT scan showed acute no intracranial abnormalities. C-spine CT scan showed bilateral cervical lymphadenopathy but no fractures or dislocations. ECG showed normal sinus rhythm, heart rate 81 beats per minute no ischemic changes. ED tx: Ceftriaxone 1 g IV Review of Systems Review of Systems: Yes Unobtainable due to mental status [facility] Medical History CVA (cerebral vascular accident) Diverticulosis Benign colon polyp Rosacea Gout Hyperuricemia High cholesterol Hyperlipemia HTN (hypertension) Family History Father Liver cancer Father Lung cancer Mother Breast cancer Surgical History Hx of colonoscopy H/O cardiac catheterization History of tonsillectomy History of surgery on arm H/O umbilical hernia repair Social History Are you a primary adult live in caregiver to a significant other at home: No Unable to assess alcohol history related to: Unknown Alcohol intake: current Alcohol intake frequency: a few times a week Alcohol type: hard liquor Patient Tobacco Use Status: Never used Tobacco Smoked in Last 30 Days: No Use of substances other than those prescribed or required for medical reasons: Unknown Advance Directives: No Advance Directives Information Provided: Yes Do you have a plan to hurt others: No Plan Meds Allergies Allergy/AdvReac Type Severity Reaction Status Date / Time No Known Allergies (No Known Allergy Verified 02/21/25 10:14 Allergies*) Active Medications: Current Medications Acetaminophen (Acetaminophen 325 Mg Tablet) 975 mg PO Q6H PRN PRN Reason: Pain, Mild 1-3,fever,headache Calcium Carbonate (Calcium Carbonate 750 Mg Tab.Chew) 750 mg PO Q4H PRN PRN Reason: Heartburn Enoxaparin Sodium (Enoxaparin Sodium 40 Mg/0.4 Ml Syringe) 40 mg SUBCUT Q24H MEMO Magnesium Hydroxide (Milk Of Magnesia 30 Ml Oral.Susp) 30 ml PO DAILY PRN PRN Reason: Constipation Melatonin (Melatonin 3 Mg Tablet) 6 mg PO BEDTIME PRN PRN Reason: Insomnia Sodium Chloride (0.9 % Sodium Chloride Flush 3 Ml Syringe) 3 ml IVFLUSH QSHIFT MEMO Home Medications ?Medication ?Instructions ?Recorded ?Confirmed ?Last Taken ?Type allopurinol 300 mg tablet 300 mg PO DAILY 05/14/20 05/14/20 08/14/22 07:45 History clobetasol 0.05 % topical cream 1 applic topical BID 05/14/20 05/14/20 Unknown History lisinopril 20 1 tab PO DAILY 05/14/20 05/14/20 Unknown History mg-hydrochlorothiazide 12.5 mg tablet metoprolol succinate 100 mg 100 mg PO DAILY 05/14/20 05/14/20 08/14/22 07:45 History tablet,extended release 24 hr (Toprol XL) rosuvastatin 40 mg tablet (Crestor) 40 mg PO DAILY 05/14/20 05/14/20 08/14/22 07:45 History triamcinolone acetonide 0.5 % 1 applic topical DAILY 05/14/20 05/14/20 Unknown History topical cream aspirin 81 mg tablet,delayed 81 mg PO DAILY 08/13/22 08/13/22 08/07/22 History release sertraline 100 mg tablet 100 mg PO DAILY 08/13/22 08/13/22 08/14/22 07:45 History fluticasone propionate 50 1 spray intranasal DAILY 02/21/25 Unknown History mcg/actuation nasal spray,suspension Physical Exam Vital Signs and Narrative: Vital Signs: Last Vital Signs Temp 97.9 F 02/21/25 18:40 Pulse 82 02/21/25 18:40 Resp 18 02/21/25 18:40 BP 111/58 L 02/21/25 18:40 Pulse Ox 94 02/21/25 18:40 O2 Del Method Room Air 02/21/25 18:40 BMI result Body Mass Index 30.0 Constitutional - Awake and Alert, No apparent distress. Cooperative. HEENT - PER, EOMI Heart - RRR, No murmurs Lungs - Normal lung expansion, Normal respiratory effort, No respiratory distress, CTA bilaterally Abdominal - NT / ND; +BS; No rebound or guarding - No penile discharges or blood. Extremities - mild nonpitting edema to the lower extremities. Musculoskeletal - generalized atrophy Skin - Warm/Dry Neurological - Alert. Almost incomprehensible speech due to dysarthria. No facial droop. No focal weakness grossly noted. Follows simple commands. Psychological - Appropriate affect Results Labs 02/21/25 10:52 02/21/25 10:52 Labs: Laboratory Results - last 24 hr 02/21/25 02/21/25 02/21/25 10:52 11:54 15:12 MCV 91.3 MCH 30.6 MCHC 33.6 RDW 14.8 Plt Count 178 MPV 9.7 Immature Gran % (Auto) Cancelled Neut % (Auto) Cancelled Lymph % (Auto) Cancelled [place] % (Auto) Cancelled Eos % (Auto) Cancelled Baso % (Auto) Cancelled Lymph # (Auto) Cancelled [place] # (Auto) Cancelled Eos # (Auto) Cancelled Baso # (Auto) Cancelled Abs Immat Gran (auto) Cancelled Absolute Neuts (auto) Cancelled Absolute Nucleated RBC 0.000 Nucleated RBC % (auto) 0.0 Neutrophils % (Manual) 28 L Band Neutrophils % 0 L Lymphocytes % (Manual) 49 H Atypical Lymphs % (Man) 12 H Monocytes % (Manual) 8 Basophils % (Manual) 3 H Abs Neuts (Manual) 3.6 Lymphocytes # (Manual) 6.3 H Atyp Lymphs # (Manual) 1.5 Monocytes # (Manual) 1.0 Basophils # (Manual) 0.4 H Platelet Estimate NORMAL Plt Morphology Comment NORMAL RBC Morphology NORMAL Anion Gap 13 Estim Creat Clear Calc 78.6 Estimated GFR > 60 Random Glucose 96 Lactic Acid 1.2 Calcium 9.0 D Magnesium 2.3 Total Bilirubin 0.6 Direct Bilirubin 0.3 AST 105 H ALT 173 H Alkaline Phosphatase 258 H Ammonia 27 Total Creatine Kinase 33 L C-Reactive Protein 2.00 H Total Protein 7.1 Albumin 3.8 Lipase 28 Urine Color Yellow Urine Appearance Clear Urine pH 5.5 Ur Specific [place] 1.020 Urine Protein Negative Urine Glucose (UA) Negative Urine Ketones Negative Urine Blood Negative Urine Nitrite Negative Ur Leukocyte Esterase Negative Influenza Type A (PCR) NEGATIVE Influenza Type B (PCR) NEGATIVE RSV RNA Qual (PCR) NEGATIVE SARS-CoV-2 RNA (RT-PCR) NEGATIVE 02/21/25 15:28 MCV MCH MCHC RDW Plt Count MPV Immature Gran % (Auto) Neut % (Auto) Lymph % (Auto) [place] % (Auto) Eos % (Auto) Baso % (Auto) Lymph # (Auto) [place] # (Auto) Eos # (Auto) Baso # (Auto) Abs Immat Gran (auto) Absolute Neuts (auto) Absolute Nucleated RBC Nucleated RBC % (auto) Neutrophils % (Manual) Band Neutrophils % Lymphocytes % (Manual) Atypical Lymphs % (Man) Monocytes % (Manual) Basophils % (Manual) Abs Neuts (Manual) Lymphocytes # (Manual) Atyp Lymphs # (Manual) Monocytes # (Manual) Basophils # (Manual) Platelet Estimate Plt Morphology Comment RBC Morphology Anion Gap Estim Creat Clear Calc Estimated GFR Random Glucose Lactic Acid Calcium Magnesium Total Bilirubin Direct Bilirubin AST ALT Alkaline Phosphatase Ammonia 36 Total Creatine Kinase C-Reactive Protein Total Protein Albumin Lipase Urine Color Urine Appearance Urine pH Ur Specific [place] Urine Protein Urine Glucose (UA) Urine Ketones Urine Blood Urine Nitrite Ur Leukocyte Esterase Influenza Type A (PCR) Influenza Type B (PCR) RSV RNA Qual (PCR) SARS-CoV-2 RNA (RT-PCR) Imaging Radiologist's Impressions: Impressions Chest X-Ray 02/21/25 09:29 IMPRESSION: No active pulmonary disease. Electronically signed by: Kolby Byrd MD 02/21/2025 10:31 AM EDT RP Cervical Spine CT 02/21/25 10:59 IMPRESSION: 1. No evidence of fracture or malalignment of the cervical spine. 2. Bilateral cervical lymphadenopathy as described. Clinical correlation is recommended. Electronically signed by: Luis Eduardo Foy MD 02/21/2025 11:34 AM EDT RP Head CT 02/21/25 10:59 IMPRESSION: No acute intracranial abnormality. Electronically signed by: Luis Eduardo Foy MD 02/21/2025 11:29 AM EDT RP Abdomen/Pelvis CT 02/21/25 15:43 IMPRESSION: 1. Mild hepatomegaly and diffuse fatty infiltration. No suspicious lesion. 2. Splenomegaly. 3. There is an 8 mm nodule in the right middle lobe, not present in 2019. This is suspicious. 4. There are bilateral nonobstructing renal calculi measuring up to 5 mm. 5. There is mild sigmoid diverticulosis. There is no evidence of diverticulitis. 6. There are additional ancillary findings as discussed in the body of the report. Electronically signed by: Kolby Byrd MD 02/21/2025 04:10 PM EDT RP Assessment and Plan (1) Transaminitis: Status: Acute (2) UTI (urinary tract infection): Qualifiers: Urinary tract infection type: acute cystitis Hematuria presence: without hematuria Qualified Code(s): N30.00 - Acute cystitis without hematuria Status: Acute Plan Luis Eduardo Ling is a 69 years old man with a PMHx presents with: ?Partially treated UTI. Continue empiric IV antibiotic therapy with ceftriaxone. Check urine culture. Blood cultures were obtained -will follow results. Elevated transaminases and alk-phos. Likely secondary to fatty liver and/or meds: Statin and ciprofloxacin - will hold. Check hepatitis panel. Continue to monitor. Multiple falls likely secondary to physical deconditioning. Check vitamin-D. Physiotherapy. Hyperlipidemia. Statin on hold due to elevated LFTs. Essential hypertension. Continue metoprolol. Gout. Continue allopurinol. Right middle lobe nodule. To followup as outpatient. Code status: Full DVT prophylaxis: Lovenox Patient will need hospitalization for at least 2 midnights for possible partially treated UTI with IV antibiotics. Quality Stroke Does the patient have a stroke diagnosis?: No VTE Prior VTE?: No VTE Risk Level:: Medical - moderate - high VTE Device Contraindication: Treatment Not Indicated VTE Drug Contraindication: N/A - Med Ordered
--- NOTE | 2025-02-21 19:30 | PC.NURSE ---
This technical writer and editor assumed care of this Pt at 1900.
--- NOTE | 2025-02-21 19:52 | PHA.MEDREC ---
Addendum entered by Aakash Patrick PharmD 02/21/25 20:28: reviewed Original Note: Pharmacy Consult ? Medication Reconciliation Pharmacy has completed the medication reconciliation. Spoke to patient at bedside to confirm med list. states Patient is no longer taking Aspirin 81 mg, Clobetasol cream and triamcinolone cream. confirmed patient takes Lisinopril -HCTZ 20-12.5mg, however there is no claim history for. Patient had all his morning medications today.
[2025-02-21] MEDS: Lactated Ringers 500 ML 999 ML IV (20:29)
[2025-02-21 21:50] VITALS: BP 126/70; PULSE 83; RESP 18; TEMP 37; O2SAT 93
[2025-02-22] MEDS: 0.9 % Sodium Chloride Flush 3 ML SYRINGE IVFLUSH ×3 (00:30→20:46)
[2025-02-22 01:25] VITALS: BP 124/68; PULSE 87; RESP 18; TEMP 36.6; O2SAT 96
--- NOTE | 2025-02-22 03:13 | PC.NURSE ---
Pt awake, able to answer basic yes or no question. Pt transferred over to hospital bed, male purewick placed.
[2025-02-22 04:37] LABS: Hematocrit 40.5 % (42.0-52.0); Hemoglobin 13.4 g/dl (14.0-18.0); Imm Gran Abs Auto 0.07 X10*3/uL (0.00-0.03); Imm Gran Pct Auto 0.7 % (0.0-0.4); MANUAL DIFF FLAG SCAN; Mean Corpuscular HGB Conc 33.1 g/dl (31.0-36.0); Mean Corpuscular Hemoglobin 30.4 pg (27.0-33.0); Mean Corpuscular Volume 91.8 fL (80.0-98.0); NRBC Abs Auto 0.000 X10*3/uL (0.0-0.012); NRBC Pct Auto 0.0 /100WBC (0.0-0.2); Platelet Count 165 X10*3/uL (160-400); Red Blood Count 4.41 X10*6/uL (4.60-5.80); SCAN SMEAR FLAG 1; White Blood Count 10.4 X10*3/uL (4.8-10.8)
[2025-02-22 04:44] LABS: Lymphocytes Absolute Auto 6.9 X10*3/uL (1.2-4.9)
[2025-02-22 04:58] LABS: Alanine Aminotransferase 143 U/L (0-40); Albumin Level 3.5 g/dL (3.5-5.0); Alkaline Phosphatase 230 U/L (39-117); Anion Gap 12 (12-20); Aspartate Amino Transferase 84 U/L (5-37); Blood Urea Nitrogen 19 mg/dL (9-16); Calcium 8.9 mg/dL (8.4-10.2); Carbon Dioxide 24 mmol/L (22-29); Chloride 104 mmol/L (96-108); Creatinine Clr Calc Pharmacy 77.6; Estimated Glomerular Filt Rate > 60; Magnesium 2.3 mg/dL (1.6-2.6); Potassium 4.4 mmol/L (3.3-5.1); Sodium 136 mmol/L (135-145); Total Protein 6.6 g/dL (6.5-8.0)
[2025-02-22 07:11] VITALS: BP 135/73; PULSE 88; RESP 20; TEMP 36.6; O2SAT 94
--- NOTE | 2025-02-22 07:30 | PC.NURSE ---
assumed care of patient at 0700, patient is awake and alert, resp even and unlabored. bed noted to be soaked with urine, patient cleaned up, linens changed. patient boosted and repositioned. patient given breakfast tray, patient is a 1:1 feed.
[2025-02-22 08:04] LABS: HBS Num1 0.85 mIU/mL (0-7.99); HBc Num1 0.08 S/CO (0.00-0.79); HBsAGNum1 0.37 S/CO (0.00-0.99); Hepatitis A Antibody IgM 0.15 Index (0-0.79); Hepatitis B Surface Antigen Negative (Negative); ~HepC Num1 0.08 S/CO (0.00-0.79); ~Hepatitis A Antibody IgM Nonreactive (Nonreactive); ~Hepatitis B Surface Antibody NONREACTIVE (Nonreactive); ~Hepatitis C Antibody Nonreactive (Nonreactive)
[2025-02-22] MEDS: Metoprolol Succinate ER 100 MG TAB.ER.24H PO (09:08)
--- NOTE | 2025-02-22 10:47 | PC.NURSE ---
patient presented to bedside, gave patient additional breakfast, patient ate breakfast again. patient seems happy at this time. takes meds whole with water. patient is two assist to the commode, had BM. patient back in bed at this time.
[2025-02-22 12:36] VITALS: BP 94/63; PULSE 81; RESP 14; TEMP 36.8; O2SAT 94
--- NOTE | 2025-02-22 14:19 | P.CNNE_ITS ---
History of Present Illness Data of Consult Service Date: 02/22/25 Primary Care Provider: Annette Kan MD HPI Reason for consult: difficulty walking 69 years old man with history of an embolic looking right frontal ischemic infarct and chronic difficulty with balance, walking and speaking with a diagnosis of progressive supranuclear palsy. He was at home and cared by his . He was brought to hospital after his ambulation got worse. His said that he was using a walker for ambulation but he could not even stand up. He recently has been treated for UTI and apparently another infection was noted. She also 30 was warm and somewhat generally weak. Review of Systems 2 Review of Systems: As per HPI [facility] Past Medical History Medical History CVA (cerebral vascular accident) Diverticulosis Benign colon polyp Rosacea Gout Hyperuricemia High cholesterol Hyperlipemia HTN (hypertension) Family History Family History Father Liver cancer Father Lung cancer Mother Breast cancer Surgical History Surgical History Hx of colonoscopy H/O cardiac catheterization History of tonsillectomy History of surgery on arm H/O umbilical hernia repair Social History Social History Are you a primary lawn care specialist to a significant other at home: No Unable to assess alcohol history related to: Unknown Alcohol intake: current Alcohol intake frequency: a few times a week Alcohol type: hard liquor Patient Tobacco Use Status: Never used Tobacco Smoked in Last 30 Days: No Use of substances other than those prescribed or required for medical reasons: Unknown Advance Directives: No Advance Directives Information Provided: Yes Do you have a plan to hurt others: No Plan Nutrition Risks: No Nutritional Risk Meds Allergies Allergy/AdvReac Type Severity Reaction Status Date / Time No Known Allergies (No Known Allergy Verified 02/21/25 10:14 Allergies*) Active Medications: Current Medications Acetaminophen (Acetaminophen 325 Mg Tablet) 975 mg PO Q6H PRN PRN Reason: Pain, Mild 1-3,fever,headache Allopurinol (Allopurinol 300 Mg Tablet) 300 mg PO DAILY [facility] Last Admin: 02/22/25 10:24 Dose: 300 mg Calcium Carbonate (Calcium Carbonate 750 Mg Tab.Chew) 750 mg PO Q4H PRN PRN Reason: Heartburn Enoxaparin Sodium (Enoxaparin Sodium 40 Mg/0.4 Ml Syringe) 40 mg SUBCUT Q24H [facility] Last Admin: 02/22/25 09:08 Dose: 40 mg Fluticasone Propionate (Fluticasone Propionate Nasal 16 Gm [place]) 1 spray NOSTRIL-B DAILY [facility] Last Admin: 02/22/25 09:12 Dose: Not Given Magnesium Hydroxide (Milk Of Magnesia 30 Ml Oral.Susp) 30 ml PO DAILY PRN PRN Reason: Constipation Melatonin (Melatonin 3 Mg Tablet) 6 mg PO BEDTIME PRN PRN Reason: Insomnia Metoprolol Succinate (Metoprolol Succinate Er 100 Mg Tab.Er.24h) 100 mg PO DAILY [facility]; Protocol Last Admin: 02/22/25 09:08 Dose: 100 mg Sertraline HCl (Sertraline Hcl 100 Mg Tablet) 100 mg PO DAILY [facility] Last Admin: 02/22/25 09:08 Dose: 100 mg Sodium Chloride (0.9 % Sodium Chloride Flush 3 Ml Syringe) 3 ml IVFLUSH QSHIFT [facility] Last Admin: 02/22/25 07:13 Dose: 3 ml Home Medications ?Medication ?Instructions ?Recorded ?Confirmed ?Last Taken ?Type allopurinol 300 mg tablet 300 mg PO DAILY 05/14/2001/1002/21/25 History lisinopril 20 1 tab PO DAILY 05/14/20 08/0 01/1002/21/25 History mg-hydrochlorothiazide 12.5 mg tablet metoprolol succinate 100 mg 100 mg PO DAILY 05/14/20 0 02/21/25 02/21/25 History tablet,extended release 24 hr (Toprol XL) rosuvastatin 40 mg tablet (Crestor) 40 mg PO DAILY 02/21/25 02/21/25 History sertraline 100 mg tablet 100 mg PO DAILY 08/13/2201/1002/21/25 History fluticasone propionate 50 1 spray intranasal DAILY 01/1002/21/25 02/21/25 History mcg/actuation nasal spray,suspension Physical Exam 2 Vital Signs: Vital Signs: Last Vital Signs Temp 98.3 F 02/22/25 12:36 Pulse 81 08/07/25 12:36 Resp 14 02/22/25 12:36 BP 94/63 02/22/25 12:36 Pulse Ox 94 02/22/25 12:36 O2 Del Method Room Air 02/22/25 12:36 BMI result Body Mass Index 30.0 Neuro: Other: Examination he was alert and awake with significantly slurred speech. Facial expression blinking was somewhat diminished. There was no significant ptosis. Horizontal saccades for slow. Vertical eye movements were limited. Generalized bradykinesia and mild spasticity in lower extremity was noted with equivocal plantars and absent reflexes. Results Labs 02/22/25 04:24 02/22/25 04:24 Labs: Short CBC 02/22/25 Range/Units 04:24 WBC 10.4 (4.8-10.8) X10*3/uL Hgb 13.4 L (14.0-18.0) g/dl Hct 40.5 L (42.0-52.0) % Plt Count 165 (160-400) X10*3/uL BMP 02/22/25 04:24 Sodium 136 Potassium 4.4 Chloride 104 Carbon Dioxide 24 BUN 19 H Creatinine 0.83 Calcium 8.9 Liver Function 02/22/25 Range/Units 04:24 Total Bilirubin 0.5 (0.0-1.0) mg/dL AST 84 H (5-37) U/L ALT 143 H (0-40) U/L Alkaline Phosphatase 230 H (39-117) U/L Albumin 3.5 (3.5-5.0) g/dL Urine 02/21/25 Range/Units 15:12 Urine Color Yellow Urine Appearance Clear Urine pH 5.5 (5.0-9.0) Ur Specific [place] 1.020 (1.005-1.025) Urine Protein Negative (Neg-Trace) mg/dL Urine Glucose (UA) Negative (Negative) mg/dL Head CT and MRI of brain revealed moderate cerebellar atrophy and a chronic right frontal ischemic infarct. Microbiology Microbiology Results: Microbiology 02/21/25 10:52 Blood - Venous Blood Culture - Preliminary No growth after 24 hours. 02/21/25 10:52 Blood - Venous Blood Culture - Preliminary No growth after 24 hours. 02/21/25 15:12 Urine clean catch - Clean Catch Midstream Urine Culture - Preliminary No growth to date. 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 This could also be cerebellar variant of PSP. In any case, either of these conditions carried similar implications. Any type of infection or similar illness can make his situation worse. His reported that he was having difficulty walking and swallowing. Speech is already significantly affected. PT OT consultation, treatment of infection, and consideration for a feeding tube is recommended as his problems would slowly worsen. Procedures Date of Service Date of Service: 02/22/25
[2025-02-22 15:50] VITALS: BMI 32.2
[2025-02-22 16:22] VITALS: BP 95/52; PULSE 93; RESP 18; TEMP 36.5; O2SAT 93
--- NOTE | 2025-02-22 17:58 | P.PNIM_ITS ---
Subjective Subjective Date of Service: 02/22/25 Interval History: uti ,generlaised weak /falls Review of Systems generalised weak Review of Systems: Yes all other systems are reviewed and are negative Physical Exam 2 Exam: Exam: Constitutional - Awake and Alert, No apparent distress. Cooperative. Lungs - air entry fair Abdominal - NT / ND; +BS. Extremities - mild nonpitting edema to the lower extremities. Musculoskeletal - generalized atrophy Skin - Warm/Dry Neurological - Alert. Almost incomprehensible speech due to dysarthria. No facial droop. No focal weakness grossly noted. Follows simple commands. Psychological - Appropriate affect Vital Signs: Vital Signs: Last Vital Signs Temp 97.7 F 02/22/25 16:22 Pulse 93 02/22/25 16:22 Resp 18 02/22/25 16:22 BP 95/52 L 02/22/25 16:22 Pulse Ox 93 02/22/25 16:22 O2 Del Method Room Air 02/22/25 16:22 BMI result Body Mass Index 32.2 Objective Data Active Medications Acetaminophen (Acetaminophen 325 Mg Tablet) 975 mg PO Q6H PRN PRN Reason: Pain, Mild 1-3,fever,headache Allopurinol (Allopurinol 300 Mg Tablet) 300 mg PO DAILY [facility] Last Admin: 02/22/25 10:24 Dose: 300 mg Documented By: LOUANN Calcium Carbonate (Calcium Carbonate 750 Mg Tab.Chew) 750 mg PO Q4H PRN PRN Reason: Heartburn Enoxaparin Sodium (Enoxaparin Sodium 40 Mg/0.4 Ml Syringe) 40 mg SUBCUT Q24H [facility] Last Admin: 02/22/25 09:08 Dose: 40 mg Documented By: LOUANN Fluticasone Propionate (Fluticasone Propionate Nasal 16 Gm [place]) 1 spray NOSTRIL-B DAILY [facility] Last Admin: 02/22/25 09:12 Dose: Not Given Documented By: LOUANN Non-Admin Reason: Med Not Available Magnesium Hydroxide (Milk Of Magnesia 30 Ml Oral.Susp) 30 ml PO DAILY PRN PRN Reason: Constipation Melatonin (Melatonin 3 Mg Tablet) 6 mg PO BEDTIME PRN PRN Reason: Insomnia Metoprolol Succinate (Metoprolol Succinate Er 100 Mg Tab.Er.24h) 100 mg PO DAILY [facility]; Protocol Last Admin: 02/22/25 09:08 Dose: 100 mg Documented By: LOUANN Sertraline HCl (Sertraline Hcl 100 Mg Tablet) 100 mg PO DAILY [facility] Last Admin: 02/22/25 09:08 Dose: 100 mg Documented By: LOUANN Sodium Chloride (0.9 % Sodium Chloride Flush 3 Ml Syringe) 3 ml IVFLUSH QSHIFT [facility] Last Admin: 02/22/25 16:39 Dose: Not Given Documented By: NIKHIL Non-Admin Reason: Previously Administered Labs 02/22/25 04:24 02/22/25 04:24 Labs: Laboratory Results - last 24 hr 02/21/25 02/22/25 10:52 04:24 MCV 91.8 MCH 30.4 MCHC 33.1 RDW 14.7 Plt Count 165 MPV 9.8 Immature Gran % (Auto) 0.7 H Neut % (Auto) 25.8 L Lymph % (Auto) 65.7 H [place] % (Auto) 6.6 Eos % (Auto) 0.1 Baso % (Auto) 1.1 Lymph # (Auto) 6.9 H [place] # (Auto) 0.7 Eos # (Auto) 0.0 Baso # (Auto) 0.1 Abs Immat Gran (auto) 0.07 H Absolute Neuts (auto) 2.7 Absolute Nucleated RBC 0.000 Nucleated RBC % (auto) 0.0 Smear Tech's Comments VERIFIED Smear Path Review SEE NOTE Anion Gap 12 Estim Creat Clear Calc 77.6 Estimated GFR > 60 Random Glucose 102 Calcium 8.9 Magnesium 2.3 Total Bilirubin 0.5 AST 84 H ALT 143 H Alkaline Phosphatase 230 H Total Protein 6.6 Albumin 3.5 Hepatitis A IgM Ab Nonreactive Hep Bs Antigen Negative Hep Bs Antibody NONREACTIVE Hep B Core Total Ab Nonreactive Hepatitis C Ab (EIA) Nonreactive Microbiology Microbiology Results: Microbiology 02/21/25 10:52 Blood Culture - Preliminary Blood - Venous No growth after 24 hours. 02/21/25 10:52 Blood Culture - Preliminary Blood - Venous No growth after 24 hours. 02/21/25 15:12 Urine Culture - Preliminary Urine clean catch - Clean Catch Midstream No growth to date. Assessment and Plan (1) UTI (urinary tract infection): Status: Acute Assessment and Plan: 69 years old man with a PMHx presents with: ?Partially treated UTI. Continue empiric IV antibiotic therapy with ceftriaxone. Check urine culture. Blood cultures were obtained -will follow results. Elevated transaminases and alk-phos. Likely secondary to fatty liver and/or meds: Statin and ciprofloxacin - will hold. Check hepatitis panel. Continue to monitor. Multiple falls likely secondary to physical deconditioning. Check vitamin-D. Physiotherapy. patient has multiple system cerebral atrophy, seen by neuro: Recommended PT OT, treatment for infection, continue to monitor. Hyperlipidemia. Statin on hold due to elevated LFTs. Essential hypertension. Continue metoprolol. Gout. Continue allopurinol. Right middle lobe nodule. To followup as outpatient. DVT prophylaxis: Lovenox Ongoing need for stay for possible partially treated UTI with IV antibiotics Quality Stroke Does the patient have a stroke diagnosis?: No VTE Prior VTE?: No VTE Risk Level:: Medical - moderate - high VTE Device Contraindication: Treatment Not Indicated VTE Drug Contraindication: N/A - Med Ordered
[2025-02-22 20:00] VITALS: BP 113/66; PULSE 75; RESP 18; TEMP 36.3; O2SAT 97
--- NOTE | 2025-02-22 22:56 | PM.HEMONCCN ---
Subjective - Subjective Chief complaint: Consult for: ?Lympho-proliferative disorder. Patient: known to practice within the last 3 years Consult date: 02/22/25 Requesting Physician: Yvon. Primary Care Provider: Annette Kan MD Family Provider: Annette Kan MD Medical Summary: DIAGNOSIS: ATYPICAL LYMPHOCTES. ? LYMPHO-PROLIFERATIVE DISEASE. 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 He presented to the emergency department accompanied by his for evaluation for multiple events of falls. He was recently diagnosed with UTI by his primary care physician and received a prescription of Cipro, he took the whole course except for one pills. He had an episode of low grade fever, 99.5. He has been experiencing pelvic discomfort. Last his noted that his urine was very dark and also noted blood on his diaper. She also noted that he has been confused. He has currently speech difficulty. Denied focal weakness, loss of consciousness, nausea, vomiting, diarrhea, headache, chest pain, shortness on breath, palpitations or cough. There is no history of alcohol abuse, tobacco smoking or illicit drug use. In the ED, he was found to have stable vital signs. Blood workup showed leukocytosis of 12.9. Hemoglobin is 13.7 and platelets 178. There is no lactic acidosis. CRP is 2.0. There are no electrolyte imbalances. BUN is 21 and creatinine 0.82. AST, ALT and alk-phos are elevated. Bilirubin is normal. Ammonia is 27. CPK is low. Urinalysis is normal. Abdominal pelvis CT scan with IV contrast showed: Mild hepatomegaly with diffuse fatty infiltration, splenomegaly, right middle lobe nodule, sigmoid diverticulosis without diverticulitis. Head CT scan showed acute no intracranial abnormalities. C-spine CT scan showed bilateral cervical lymphadenopathy but no fractures or dislocations. ECG showed normal sinus rhythm, heart rate 81 beats per minute no ischemic changes. ED tx: Ceftriaxone 1 g IV Medical History:) CVA (cerebral vascular accident) Diverticulosis Benign colon polyp Rosacea Gout Hyperuricemia High cholesterol Hyperlipemia HTN (hypertension) Surgical History:) Hx of colonoscopy H/O cardiac catheterization History of tonsillectomy History of surgery on arm H/O umbilical hernia repair Family History:) Father Liver cancer Father Lung cancer Mother Breast cancer Social History:) Are you a primary managed care director to a significant other at home: No Unable to assess alcohol history related to: Unknown Alcohol intake: current Alcohol intake frequency: a few times a week Alcohol type: hard liquor Patient Tobacco Use Status: Never used Tobacco Smoked in Last 30 Days: No Use of substances other than those prescribed or required for medical reasons: Unknown Review of Systems Review of Systems: Yes Unobtainable due to mental status Review of Systems - Constitutional Reports system reviewed and no additional complaints, except as documented, Reports lack of energy, Reports malaise, Reports weight loss - Eyes Reports system reviewed and no additional complaints, except as documented - ENT Reports system reviewed and no additional complaints, except as documented - Cardiovascular Reports system reviewed and no additional complaints, except as documented - Respiratory Reports no additional respiratory complaints - Gastrointestinal Reports system reviewed and no additional complaints, except as documented - Genitourinary Genitourinary: Reports no additional male genitourinary complaints - Musculoskeletal Reports system reviewed and no additional complaints, except as documented - Integumentary/Breasts Skin/Breast: Reports no additional skin complaints - Neurologic Reports abnormal speech - Psychiatric Reports system reviewed and no additional complaints, except as documented - Endocrine Reports no additional endocrine complaints - Hematologic/Lymphatic Reports system reviewed and no additional complaints, except as documented - Allergic/Immunologic Reports system reviewed and no additional complaints, except as documented Oncology Screenings - ECOG Performance Status ECOG Performance Status: 2 [facility] Medical History: Medical History (Last Reviewed 02/23/25 @ 09:32 by CHEPE Abraham) Benign colon polyp CVA (cerebral vascular accident) Diverticulosis Gout High cholesterol HTN (hypertension) Hyperlipemia Hyperuricemia Rosacea Functional capacity: wheelchair bound Family History: Family History (Last Reviewed 02/21/25 @ 15:26 by Maura Vaca PA-C) Father Liver cancer Father Lung cancer Mother Breast cancer Surgical History: Surgical History (Last Reviewed 02/23/25 @ 09:32 by CHEPE Abraham) H/O cardiac catheterization H/O umbilical hernia repair History of surgery on arm History of tonsillectomy Hx of colonoscopy Social History: Social History (Last Reviewed 02/21/25 @ 15:26 by Maura Vaca PA-C) Living Situation History: Household Members: Spouse Household Members: Caregiver Housing: House Are you a primary managed care director to a significant other at home: No Do you presently have visiting nurse or other home services: No Alcohol History: Unable to assess alcohol history related to: Unknown Tobacco History: Patient Tobacco Use Status: Never used Tobacco Occupation Assessmet: service: No Home Medications and Allergies Current Medications: Current Medications Acetaminophen (Acetaminophen 325 Mg Tablet) 975 mg PO Q6H PRN PRN Reason: Pain, Mild 1-3,fever,headache Allopurinol (Allopurinol 300 Mg Tablet) 300 mg PO DAILY [facility] Last Admin: 02/22/25 10:24 Dose: 300 mg Calcium Carbonate (Calcium Carbonate 750 Mg Tab.Chew) 750 mg PO Q4H PRN PRN Reason: Heartburn Enoxaparin Sodium (Enoxaparin Sodium 40 Mg/0.4 Ml Syringe) 40 mg SUBCUT Q24H [facility] Last Admin: 02/22/25 09:08 Dose: 40 mg Fluticasone Propionate (Fluticasone Propionate Nasal 16 Gm [place]) 1 spray NOSTRIL-B DAILY [facility] Last Admin: 02/22/25 09:12 Dose: Not Given Magnesium Hydroxide (Milk Of Magnesia 30 Ml Oral.Susp) 30 ml PO DAILY PRN PRN Reason: Constipation Melatonin (Melatonin 3 Mg Tablet) 6 mg PO BEDTIME PRN PRN Reason: Insomnia Metoprolol Succinate (Metoprolol Succinate Er 100 Mg Tab.Er.24h) 100 mg PO DAILY [facility]; Protocol Last Admin: 02/22/25 09:08 Dose: 100 mg Sertraline HCl (Sertraline Hcl 100 Mg Tablet) 100 mg PO DAILY [facility] Last Admin: 02/22/25 09:08 Dose: 100 mg Sodium Chloride (0.9 % Sodium Chloride Flush 3 Ml Syringe) 3 ml IVFLUSH QSHIFT [facility] Last Admin: 02/22/25 20:46 Dose: 3 ml Home Medications ?Medication ?Instructions ?Recorded ?Confirmed ?Type allopurinol 300 mg tablet 300 mg PO DAILY 05/14/20 02/21/25 History lisinopril 20 1 tab PO DAILY 05/14/20 02/21/25 History mg-hydrochlorothiazide 12.5 mg tablet metoprolol succinate 100 mg 100 mg PO DAILY 05/14/20 02/21/25 History tablet,extended release 24 hr (Toprol XL) rosuvastatin 40 mg tablet (Crestor) 40 mg PO DAILY 05/14/20 02/21/25 History sertraline 100 mg tablet 100 mg PO DAILY 08/13/22 02/21/25 History fluticasone propionate 50 1 spray intranasal DAILY 02/21/25 02/21/25 History mcg/actuation nasal spray,suspension Allergies Allergy/AdvReac Type Severity Reaction Status Date / Time No Known Allergies (No Known Allergy Verified 02/21/25 10:14 Allergies*) Physical Exam Vital signs: Vital Signs Temp 97.3 F 02/22/25 20:00 Pulse 75 02/22/25 20:00 Resp 18 02/22/25 20:00 BP 113/66 02/22/25 20:00 Pulse Ox 97 02/22/25 20:00 O2 Del Method Room Air 02/22/25 20:00 Intake & Output 02/22/25 02/22/25 02/23/25 06:59 18:59 06:59 Intake Total 500 / 500 320 / 320 Balance 500 / 500 320 / 320 Intake: Intake, Oral Amount 320 / 320 Intake, IV Amount 500 / 500 Lactated Ringers 500 ml @ 999 500 / 500 mls/hr IV .Q31M STA Rx#: [id number] Other: Number of Incontinent Voids 3 Urine Color Yellow Last Bowel Movement 02/22/25 Weight 85.1 kg Weight 85.1 kg - Constitutional Present: no acute distress, mild distress, moderate distress - Routine HEENT Exam Head: Present: normal inspection, normocephalic Eye: Present: normal appearance ENT: Present: mucous membranes moist - Routine Neck Exam Present: supple - Routine Respiratory Exam Present: CTAB - Routine Cardiovascular Exam Cardiovascular: Present: RRR, S1, S2 - Routine Abdominal Exam Present: nontender - Routine Extremities Exam Present: nontender - Routine Skin Exam Present: intact. Absent: cyanosis Hem/Onc Consult Result - Labs CBC & Chem 7: 02/22/25 04:24 02/22/25 04:24 Labs: Short CBC 02/22/25 Range/Units 04:24 WBC 10.4 (4.8-10.8) X10*3/uL Hgb 13.4 L (14.0-18.0) g/dl Hct 40.5 L (42.0-52.0) % Plt Count 165 (160-400) X10*3/uL BMP 02/22/25 04:24 Sodium 136 Potassium 4.4 Chloride 104 Carbon Dioxide 24 BUN 19 H Creatinine 0.83 Calcium 8.9 Liver Function 02/22/25 Range/Units 04:24 Total Bilirubin 0.5 (0.0-1.0) mg/dL AST 84 H (5-37) U/L ALT 143 H (0-40) U/L Alkaline Phosphatase 230 H (39-117) U/L Albumin 3.5 (3.5-5.0) g/dL Assessment and Plan Patient Active problem list reviewed?: Yes (1) Erythrocytosis Status: Chronic Assessment and plan: 1. This is a 69-year-old male with a H/O Chronic Intermittent Erythrocytosis. Blood work in May 2020 revealed hemoglobin of 16.7 gram/dL with hematocrit of 49.3%. This is an improvement from previous numbers. At that time, he was hydrating himself better which could be a reason. Serum erythropoietin level is elevated suggesting secondary erythrocytosis. He had a CT abdomen/pelvis in February 2019 which was negative for any renal neoplasms, he did have kidney stones. He was asked to take a baby aspirin. He has now been admitted to the hospital, after a fall with mental status changes. He is actually anemic now. His CBC reveals: WBC 10.4, HGB 13.4, HCT 40.5, PLT 165. His diff shows: Neutrophils 28, lymphs 49, atypical lymphs 12. Peripheral smear raises concern for a lymphoproliferative disorder. D/D: CLL. Peripheralizing Lympoma. Follicular Lymphoma. PLAN: I will proceed with flow cytometry on the peripheral blood. Will consider doing a bone marrow exam if that does not provide a conclusive diagnosis. He can be followed on the out patient basis. Thank you for this consult, I will follow along with you, CC: Dr. Kan. - Time Spent With Patient Time Spent with Patient (in minutes): 30
[2025-02-22 23:35] VITALS: BP 102/61; PULSE 82; RESP 18; TEMP 36.3; O2SAT 94
[2025-02-23] VITALS (7 sets, daily range): BP systolic 93–116; BP diastolic 55–73; PULSE 76–108; RESP 12–94; TEMP 36.3–37.1; O2SAT 93–99
--- NOTE | 2025-02-23 12:36 | MHC.CM.PN ---
Addendum entered by Denice Chang RN 02/23/25 12:54: PCP office closed for the day. Patient signed new HCP w/ Rosalia as HCA. Original Note: CM assessment completed w/ Rosalia at bedside. Patient w/ slow, unclear speech. Patient lives in a home w/ . Per he is mostly w/c bound. She assists w/ all ADLs and iADLs. Until recently he was able to transfer from w/c independently using a walker, but she is now assisting. Also has a bedside commode. No services - reports she is interested in BIOINFORMATICS RESEARCH TECHNICIAN hours, but was previously denied by [facility]. PCP Annette Kan Reports they completed an HCP@ PCP's office, is HCP. CM secretary of police will request copy from PCP. DP: PT rec STR. Patient/ accepted a bed at [facility], who will go for auth. Per MD likely ready tomorrow, S transport. Also submitted [facility] (previously [facility]) referral, to re-eval for BIOINFORMATICS RESEARCH TECHNICIAN. will also reach out to PCP for assistance w/ this. CM will continue to follow.
--- NOTE | 2025-02-23 17:28 | HO.PM.IMPN ---
Subjective Subjective Date of Service: 02/23/25 Interval History: Generalized weakness Review of Systems No new complaints Review of Systems: Yes all other systems are reviewed and are negative Physical Exam Exam: Exam: Constitutional - Awake and Alert, No apparent distress. Cooperative. Lungs - air entry fair Abdominal - NT / ND; +BS. Extremities - mild nonpitting edema to the lower extremities. Musculoskeletal - generalized atrophy Skin - Warm/Dry Neurological - Alert. Almost incomprehensible speech due to dysarthria. No facial droop. No focal weakness grossly noted. Follows simple commands. Psychological - Appropriate affect Vital Signs: Vital Signs: Last Vital Signs Temp 98.6 F 02/23/25 15:55 Pulse 99 02/23/25 15:55 Resp 16 02/23/25 15:55 BP 93/55 L 02/23/25 15:55 Pulse Ox 93 02/23/25 15:55 O2 Del Method Room Air 02/23/25 15:55 BMI result Body Mass Index 32.2 Objective Data Active Medications Acetaminophen (Acetaminophen 325 Mg Tablet) 975 mg PO Q6H PRN PRN Reason: Pain, Mild 1-3,fever,headache Allopurinol (Allopurinol 300 Mg Tablet) 300 mg PO DAILY [facility] Last Admin: 02/23/25 09:43 Dose: 300 mg Documented By: NIKHIL Calcium Carbonate (Calcium Carbonate 750 Mg Tab.Chew) 750 mg PO Q4H PRN PRN Reason: Heartburn Ceftriaxone Sodium (Ceftriaxone Sodium 1 Gm Vial) 1 gm IVPUSH Q24H [facility] Last Admin: 02/23/25 09:43 Dose: 1 gm Documented By: NIKHIL Enoxaparin Sodium (Enoxaparin Sodium 40 Mg/0.4 Ml Syringe) 40 mg SUBCUT Q24H [facility] Last Admin: 02/23/25 09:51 Dose: 40 mg Documented By: NIKHIL Fluticasone Propionate (Fluticasone Propionate Nasal 16 Gm [place]) 1 spray NOSTRIL-B DAILY [facility] Last Admin: 02/23/25 09:43 Dose: 1 spray Documented By: NIKHIL Magnesium Hydroxide (Milk Of Magnesia 30 Ml Oral.Susp) 30 ml PO DAILY PRN PRN Reason: Constipation Melatonin (Melatonin 3 Mg Tablet) 6 mg PO BEDTIME PRN PRN Reason: Insomnia Metoprolol Succinate (Metoprolol Succinate Er 50 Mg Tab.Er.24h) 50 mg PO DAILY [facility]; Protocol Sertraline HCl (Sertraline Hcl 100 Mg Tablet) 100 mg PO DAILY [facility] Last Admin: 02/23/25 09:44 Dose: 100 mg Documented By: NIKHIL Sodium Chloride (0.9 % Sodium Chloride Flush 3 Ml Syringe) 3 ml IVFLUSH QSHIFT [facility] Last Admin: 02/23/25 16:35 Dose: Not Given Documented By: NIKHIL Non-Admin Reason: Previously Administered Labs 02/22/25 04:24 02/22/25 04:24 Labs: Laboratory Results - last 24 hr 02/23/25 05:56 Lactate Dehydrogenase 433 H Microbiology Microbiology Results: Microbiology 02/21/25 10:52 Blood Culture - Preliminary Blood - Venous No growth after 48 hours. 02/21/25 10:52 Blood Culture - Preliminary Blood - Venous No growth after 48 hours. 02/21/25 15:12 Urine Culture - Final Urine clean catch - Clean Catch Midstream No growth. Assessment and Plan (1) UTI (urinary tract infection): Status: Acute Assessment and Plan: 69 years old man with a PMHx presents with: ?Partially treated UTI. Continue empiric IV antibiotic therapy with ceftriaxone. Check urine culture. Blood cultures were obtained -will follow results. Elevated transaminases and alk-phos. Likely secondary to fatty liver and/or meds: Statin and ciprofloxacin - will hold. Check hepatitis panel. Continue to monitor. Multiple falls likely secondary to physical deconditioning. Check vitamin-D. Physiotherapy. patient has multiple system cerebral atrophy, seen by neuro: Recommended PT OT, treatment for infection, continue to monitor. Hyperlipidemia. Statin on hold due to elevated LFTs. Essential hypertension. Continue metoprolol. Gout. Continue allopurinol. Right middle lobe nodule. To followup as outpatient. DVT prophylaxis: Lovenox Ongoing need for stay for possible partially treated UTI with IV antibiotics Quality Stroke Does the patient have a stroke diagnosis?: No VTE Prior VTE?: No VTE Risk Level:: Medical - moderate - high VTE Device Contraindication: Treatment Not Indicated VTE Drug Contraindication: N/A - Med Ordered
[2025-02-23] MEDS: 0.9 % Sodium Chloride Flush 3 ML SYRINGE IVFLUSH (19:54)
[2025-02-24 03:57] VITALS: BP 120/73; PULSE 101; RESP 18; TEMP 36.4; O2SAT 95
[2025-02-24 07:36] VITALS: BP 128/70; PULSE 102; RESP 18; TEMP 36.8; O2SAT 94
[2025-02-24] MEDS: Metoprolol Succinate ER 50 MG TAB.ER.24H PO (08:52)
[2025-02-24] MEDS: 0.9 % Sodium Chloride Flush 3 ML SYRINGE IVFLUSH (08:52)
--- NOTE | 2025-02-24 10:46 | P.DS_ITS ---
DS: Providers Provider Date of Service: 02/24/25 Date of admission: 02/21/25 16:35 Date of discharge: 02/24/25 Primary care physician: Annette Kan MD Consults: 02/22/25 08:13 Consult to Hematology / Oncology Routine Consulting Provider: [facility] Oncology/Hematology Reason for consultation: atypical lymphocytes in peripheral blood - lymphoproliferative disorder Has provider been notified: Yes 02/22/25 11:30 Consult to Neurology Routine Consulting Provider: [facility] Reason for consultation: Falls / supranuclear palsy Has provider been notified: No Attending physician on discharge: Rashaun Sanz Discharging clinician: Rashaun Sanz DS: Diagnosis Discharge Diagnosis (1) Erythrocytosis: Status: Chronic DS: Summary Hospital Course Hospital Course: HPI:69 years old man with past medical history significant for of CVA, wheelchair-bound, hyperlipidemia and essential hypertension presents to the emergency department accompanied by his for evaluation for multiple events of falls. He was recently diagnosed with UTI by his primary care physician and received a prescription of Cipro, he took the whole course except for one pills. She had an episode of low grade fever, 99.5. He has been experiencing pelvic discomfort. Last his noted that his urine was very dark and also noted blood on his diaper. She also noted that he has been confused. He has currently speech difficulty. Denied focal weakness, loss of consciousness, nausea, vomiting, diarrhea, headache, chest pain, shortness on breath, palpitations or cough. There is no history of alcohol abuse, tobacco smoking or illicit drug use. In the ED, he was found to have stable vital signs. Blood workup showed l eukocytosis of 12.9. Hemoglobin is 13.7 and platelets 178. There is no lactic acidosis. CRP is 2.0. There are no electrolyte imbalances. BUN is 21 and creatinine 0.82. AST, ALT and alk-phos are elevated. Bilirubin is normal. Ammonia is 27. CPK is low. Urinalysis is normal. Abdominal pelvis CT scan with IV contrast showed mild hepatomegaly with diffuse fatty infiltration, splenomegaly, right middle lobe nodule, sigmoid diverticulosis without diverticulitis. Head CT scan showed acute no intracranial abnormalities. C- spine CT scan showed bilateral cervical lymphadenopathy but no fractures or dislocations. ECG showed normal sinus rhythm, heart rate 81 beats per minute no ischemic changes. ED tx: Ceftriaxone 1 g IV. hospital course: UTI: Complete p.o. Ceftin x2 days (as per almost end of the course uti). Multiple falls in the setting of Multi-system cerebral atrophy: neuro recommended supportive care and PT OT,Seen by PT OT recommended rehab. Vitamin-D levels pending- follow-up outpatient. Hypotension: Blood pressure is on the softer side: Will DC lisinopril/hydrochlorothiazide, adjusted metoprolol to 50 mg daily. Elevated transaminases and alk-phos. Likely secondary to fatty liver and/or meds: Statin and ciprofloxacin - will hold. hepatitis a,b,c serology nonreactive. LFTs improving, monitor LFT outpatient. Consider further workup outpatient. In addition patient has history of chronic erythrocytosis/peripheral blood: Neutrophils 28, lymphs 49, atypical lymphs 12. Peripheral smear raises concern for a lymphoproliferative disorder. Patient seen by hematology: Added flow cytometry for peripheral blood. Consider bone marrow outpatient. Follow up with Dr. Giles's office outpatient. Monitor CBC closely. ct abd incidental finding(please see detailed imaging in the imaging section.) : There is an 8 mm nodule in the right middle lobe, not present in 2019. This is suspicious. follow up outpatient with pcp-repeat chest CT in 3 months, consider outpatient pulmonary evaluation. plan: ceftin 250 mg po bidx2 days. Vitamin-D levels pending- follow-up outpatient. moniter cbc and bmp,lft's in 1 week outpatient. Patient seen by hematology: Added flow cytometry for peripheral blood. Consider bone marrow outpatient. Follow up with Dr. Giles's office outpatient. Above management discussed with the patient in detail length she understand and in agreement with the above plan, time spent 45 minute. All questions answered. Staff was present during conversation. Time Attestation Total time managing care of this patient today: 45 mintues. Discharge Coordination Time (in mins): 45 min Quality: Safe Use of Opioids Does Pt have an Active Cancer Diagnosis on the Problem List?: No Quality: Stroke Does the patient have a stroke diagnosis?: No Physical Exam Exam: Exam: Appearance: awake ,Alert - at his baseline per . cvs: rrr, [id number]. res: clear to auscultation ,no rhonchii or wheezing abd: no rebound or guarding ,nt, bs present. ext pulses present , no cyanosis . neuro: moves all ext. Vital Signs: Vital Signs: Last Vital Signs Temp 98.2 F 02/24/25 07:36 Pulse 102 H 02/24/25 07:36 Resp 18 02/24/25 07:36 BP 128/70 02/24/25 07:36 Pulse Ox 94 02/24/25 07:36 O2 Del Method Room Air 02/24/25 07:36 BMI result Body Mass Index 32.2 DS: Data Data Completed and Pending Labs on day of discharge: Preliminary micro results at discharge 02/21/25 10:52 Blood Culture - Preliminary Blood - Venous No growth after 48 hours. 02/21/25 10:52 Blood Culture - Preliminary Blood - Venous No growth after 48 hours. Imaging Chest x-ray: Radiologist's impression: ITS Impressions Chest X-Ray 02/21/25 09:29 IMPRESSION: No active pulmonary disease. Cervical Spine CT 02/21/25 10:59 IMPRESSION: 1. No evidence of fracture or malalignment of the cervical spine. 2. Bilateral cervical lymphadenopathy as described. Clinical correlation is recommended. Head CT 02/21/25 10:59 IMPRESSION: No acute intracranial abnormality. Abdomen/Pelvis CT 02/21/25 15:43 IMPRESSION: 1. Mild hepatomegaly and diffuse fatty infiltration. No suspicious lesion. 2. Splenomegaly. 3. There is an 8 mm nodule in the right middle lobe, not present in 2019. This is suspicious. 4. There are bilateral nonobstructing renal calculi measuring up to 5 mm. 5. There is mild sigmoid diverticulosis. There is no evidence of diverticulitis. 6. There are additional ancillary findings as discussed in the body of the report. Discharge Plan Discharge Anticipated Discharge Date/Time: 02/24/25 10:36 Patient Disposition: Xfer SNF Discharge Diagnosis: multiple system cerebral atrophy,uti ,eleavted lft , ? lymphopriliferative disease. Referrals: robert [Other] - 1 Week Annette Kan MD [Primary Care Provider, Internal Medicine] - 1 Week Chan (Arnoldo MOLINA MD [Physician, Hematology & Oncology] - 1 Week Discharge Medications: Continued allopurinol 300 mg Tablet 300 mg PO DAILY rosuvastatin [Crestor] 40 mg Tablet 40 mg PO DAILY sertraline 100 mg Tablet 100 mg PO DAILY fluticasone propionate 50 mcg/actuation spray,suspension 1 spray intranasal DAILY Changed metoprolol succinate [Toprol XL] 100 mg Tablet Extended Release 24 Hr 50 mg PO DAILY Qty: 1 0RF Discontinued lisinopril-hydrochlorothiazide 20-12.5 mg Tablet 1 tab PO DAILY Discharge Orders: Discharge Order (Routine); Ordered 02/24/25 Ordered By: Rashaun Sanz Diet: Advance to usual diet Activity on Discharge: As tolerated Stand Alone Forms: Patient Portal Discharge page Print Language: French Care Plan Goals: as below. Health Concerns: As above. Plan of Treatment: ceftin 250 mg po bidx2 days. Vitamin-D levels pending- follow-up outpatient. moniter cbc and bmp,lft's outpatient. Patient seen by hematology: Added flow cytometry for peripheral blood. Consider bone marrow outpatient. Follow up with Dr. Giles's office outpatient. Monitor CBC closely Assessment: as above.
--- NOTE | 2025-02-24 11:30 | P.PNIM_ITS ---
Subjective Subjective Date of Service: 02/24/25 Interval History: uti Review of Systems seems improving Review of Systems: Yes all other systems are reviewed and are negative Physical Exam 2 Exam: Exam: Appearance: awake ,Alert at baseline . cvs: rrr, [id number]. res: clear to auscultation ,no rhonchii or wheezing abd: no rebound or guarding ,nt, bs present. ext pulses present , no cyanosis . neuro: moves all ext. Vital Signs: Vital Signs: Last Vital Signs Temp 98.2 F 02/24/25 07:36 Pulse 102 H 02/24/25 07:36 Resp 18 02/24/25 07:36 BP 128/70 02/24/25 07:36 Pulse Ox 94 02/24/25 07:36 O2 Del Method Room Air 02/24/25 07:36 BMI result Body Mass Index 32.2 Objective Data Active Medications Acetaminophen (Acetaminophen 325 Mg Tablet) 975 mg PO Q6H PRN PRN Reason: Pain, Mild 1-3,fever,headache Allopurinol (Allopurinol 300 Mg Tablet) 300 mg PO DAILY [facility] Last Admin: 02/24/25 08:52 Dose: 300 mg Documented By: ALBERTO Calcium Carbonate (Calcium Carbonate 750 Mg Tab.Chew) 750 mg PO Q4H PRN PRN Reason: Heartburn Ceftriaxone Sodium (Ceftriaxone Sodium 1 Gm Vial) 1 gm IVPUSH Q24H [facility] Last Admin: 02/24/25 08:52 Dose: 1 gm Documented By: ALBERTO Enoxaparin Sodium (Enoxaparin Sodium 40 Mg/0.4 Ml Syringe) 40 mg SUBCUT Q24H [facility] Last Admin: 02/24/25 08:52 Dose: 40 mg Documented By: ALBERTO Fluticasone Propionate (Fluticasone Propionate Nasal 16 Gm [place]) 1 spray NOSTRIL-B DAILY [facility] Last Admin: 02/24/25 09:04 Dose: 1 spray Documented By: ALBERTO Magnesium Hydroxide (Milk Of Magnesia 30 Ml Oral.Susp) 30 ml PO DAILY PRN PRN Reason: Constipation Melatonin (Melatonin 3 Mg Tablet) 6 mg PO BEDTIME PRN PRN Reason: Insomnia Metoprolol Succinate (Metoprolol Succinate Er 50 Mg Tab.Er.24h) 50 mg PO DAILY [facility]; Protocol Last Admin: 02/24/25 08:52 Dose: 50 mg Documented By: ALBERTO Sertraline HCl (Sertraline Hcl 100 Mg Tablet) 100 mg PO DAILY [facility] Last Admin: 02/24/25 08:52 Dose: 100 mg Documented By: ALBERTO Sodium Chloride (0.9 % Sodium Chloride Flush 3 Ml Syringe) 3 ml IVFLUSH QSHIFT [facility] Last Admin: 02/24/25 08:52 Dose: 3 ml Documented By: ALBERTO Labs 02/22/25 04:24 02/22/25 04:24 Microbiology Microbiology Results: Microbiology 02/21/25 10:52 Blood Culture - Preliminary Blood - Venous No growth after 48 hours. 02/21/25 10:52 Blood Culture - Preliminary Blood - Venous No growth after 48 hours. 02/21/25 15:12 Urine Culture - Final Urine clean catch - Clean Catch Midstream No growth. Assessment and Plan (1) UTI (urinary tract infection): Status: Acute Assessment and Plan: 69 years old man with a PMHx presents with: ?Partially treated UTI. Continue empiric IV antibiotic therapy with ceftriaxone. Check urine culture. Blood cultures were obtained -will follow results. Elevated transaminases and alk-phos. Likely secondary to fatty liver and/or meds: Statin and ciprofloxacin - will hold. Check hepatitis panel. Continue to monitor. Multiple falls likely secondary to physical deconditioning. Check vitamin-D. Physiotherapy. patient has multiple system cerebral atrophy, seen by neuro: Recommended PT OT, treatment for infection, continue to monitor. Hyperlipidemia. Statin on hold due to elevated LFTs. Essential hypertension. Continue metoprolol. Gout. Continue allopurinol. Right middle lobe nodule. To followup as outpatient. DVT prophylaxis: Lovenox Ongoing need for stay for possible partially treated UTI with IV antibiotics Quality Stroke Does the patient have a stroke diagnosis?: No VTE Prior VTE?: No VTE Risk Level:: Medical - moderate - high VTE Device Contraindication: Treatment Not Indicated VTE Drug Contraindication: N/A - Med Ordered
--- NOTE | 2025-02-24 11:53 | MHC.CM.PN ---
pt leaving at to [facility] notiied
[2025-02-24 12:48] VITALS: BP 108/64; PULSE 90; RESP 14; TEMP 36.6; O2SAT 94
[2025-02-26 12:44] LABS: Vitamin D 25-OH, D2 <4 ng/mL; Vitamin D 25-OH, D3 14 ng/mL; Vitamin D 25-OH, Total 14 ng/mL (30-100)
== END 2025-02-24 13:00 | disposition skilled nursing facility (03) | DRG 463 ==
LOC: HO.ED 16:32 → HO.EDOVER 16:51 → HO.S3 02-22 14:35
PROVIDERS: Internal Medicine Medical Oncology; Physician Assistant Medical; Admitting Provider Internal Medicine; Emergency Provider Emergency Medicine; PCP Internal Medicine; Visit Provider Internal Medicine
DX: N39.0 Urinary tract infection, site not specified (principal); G23.1 Progressive supranuclear ophthalmoplegia [Steele-Richardson-Olszewski]; K76.0 Fatty (change of) liver, not elsewhere classified; D47.9 Neoplasm of uncertain behavior of lymphoid, hematopoietic and related tissue, unspecified; E78.5 Hyperlipidemia, unspecified; I10 Essential (primary) hypertension; R29.6 Repeated falls; D75.1 Secondary polycythemia; R91.1 Solitary pulmonary nodule; Z99.3 Dependence on wheelchair; R53.81 Other malaise; M10.9 Gout, unspecified; W19.XXXA Unspecified fall, initial encounter; Z20.822 Contact with and (suspected) exposure to COVID-19; Z79.51 Long term (current) use of inhaled steroids; Z79.899 Other long term (current) drug therapy
CPT/HCPCS: 36415; 70450; 71045; 72125; 74177; 80048; 80053; 80076; 81003; 82140; 82306; 82550; 83605; 83615; 83690; 83735; 84484; 85007; 85025; 85027; 86140; 86704; 86706; 86709; 86803; 87040; 87086; 87340; 87637; 88184; 88185; 93005; 97162; 97167; 97530; 99285; J0696; J1650; J7120; Q9967

== ENCOUNTER → 2025-02-21 10:16 | Outpatient (BNV) | payer BC, SELFPAY | PROVIDERS: Admitting Provider Internal Medicine; Emergency Provider Emergency Medicine; PCP Internal Medicine; Visit Provider Internal Medicine | DX: R53.1 Weakness (principal) | CPT/HCPCS: 93010 ==

== ENCOUNTER → 2025-02-21 10:17 | Outpatient (BNV) | payer BC, SELFPAY | PROVIDERS: PCP Internal Medicine; Visit Provider Radiology Diagnostic Radiology | DX: N20.0 Calculus of kidney (principal); R91.1 Solitary pulmonary nodule; R16.1 Splenomegaly, not elsewhere classified; R26.2 Difficulty in walking, not elsewhere classified; R41.0 Disorientation, unspecified; R53.1 Weakness; W19.XXXA Unspecified fall, initial encounter | CPT/HCPCS: 70450; 71045; 72125; 74177 ==

== ENCOUNTER → 2025-02-21 16:35 | Outpatient (BNV) | payer BC, SELFPAY | PROVIDERS: Admitting Provider Internal Medicine; Emergency Provider Emergency Medicine; PCP Internal Medicine; Visit Provider Psychiatry & Neurology Neurology | DX: G90.3 Multi-system degeneration of the autonomic nervous system (principal); G23.8 Other specified degenerative diseases of basal ganglia | CPT/HCPCS: 99233 ==

== ENCOUNTER → 2025-02-21 16:35 | Outpatient (BNV) | payer BC, SELFPAY | PROVIDERS: Admitting Provider Internal Medicine; Emergency Provider Emergency Medicine; PCP Internal Medicine; Visit Provider Internal Medicine Medical Oncology | DX: R41.82 Altered mental status, unspecified (principal); D75.1 Secondary polycythemia | CPT/HCPCS: 99232 ==

== ENCOUNTER → 2025-02-21 16:35 | Outpatient (BNV) | payer BC, SELFPAY | PROVIDERS: Admitting Provider Internal Medicine; Emergency Provider Emergency Medicine; PCP Internal Medicine; Visit Provider Internal Medicine | DX: R74.01 Elevation of levels of liver transaminase levels (principal); N30.00 Acute cystitis without hematuria | CPT/HCPCS: 99223; 99231; 99232; 99239 ==

== ENCOUNTER → 2025-03-06 09:22 | Outpatient (BNV) | payer BC, SELFPAY | PROVIDERS: Visit Provider Internal Medicine Medical Oncology | DX: D72.820 Lymphocytosis (symptomatic) (principal); D75.1 Secondary polycythemia | CPT/HCPCS: 99213 ==

== ENCOUNTER 2025-04-10 10:08 | Outpatient (AMB) | payer BC, SELFPAY ==
--- NOTE | 2025-04-10 10:09 | MHC.OFFVIS ---
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 Patient denies underlying history of pulmonary related concerns or complaints. Patient does have a history of lung cancer in his father. He also complains of difficulty swallowing. [facility] Medical History CVA (cerebral vascular accident) Diverticulosis Benign colon polyp Rosacea Gout Hyperuricemia High cholesterol Hyperlipemia HTN (hypertension) Surgical History Hx of colonoscopy H/O cardiac catheterization History of tonsillectomy History of surgery on arm H/O umbilical hernia repair Family History Father Liver cancer Father Lung cancer Mother Breast cancer Social History Household Members: Spouse and Caregiver Housing: House Are you a primary regular senior care provider to a significant other at home: No Do you presently have visiting nurse or other home services: No Alcohol intake: current Alcohol intake frequency: a few times a week Alcohol type: hard liquor Patient Tobacco Use Status: Never used Tobacco service: No Review of Systems Const Denies daytime sleepiness, Denies excessive sweating, Denies fatigue, Denies fever(s), Denies lethargy, Denies malaise, Denies night sweats, Denies snoring and Denies weight loss Eyes Denies blurry vision and Denies itchy eyes ENT Denies nasal congestion, Denies post nasal drip, Denies sinus pain, Denies sinus pressure and Denies other ( Thrush) Card Denies chest pain, Denies pedal edema, Denies dyspnea, Denies orthopnea and Denies paroxysmal nocturnal dyspnea Resp Denies cough, Denies hemoptysis, Denies excessive phlegm production, Denies dyspnea, Denies snoring and Denies wheezing GI Denies abdominal pain and Denies heartburn Musc Denies myalgias, Denies arthralgias and Denies joint swelling Skin/Breast Denies rash Neuro Denies memory loss and Denies seizure-like activity Psych Denies abnormal sleep pattern, Denies anxiety and Denies memory loss Endo Denies excessive sweating, Denies fatigue and Denies heat intolerance Branden/Lymph Denies easy bruising Aller/Immun Denies itchy eyes, Denies seasonal rhinorrhea and Denies wheezing Physical Exam Vital Signs: Last Vital Signs Pulse 118 H 04/10/25 10:10 BP 118/62 04/10/25 10:10 Pulse Ox 93 04/10/25 10:10 Oxygen Delivery Method Room Air 04/10/25 10:10 BMI result Body Mass Index 31.6 Const General: no acute distress and alert Nutritional Appearance: not obese Orientation/consciousness: Other orientation findings ( oriented) HEENT Head: Yes atraumatic Eyes General: appearance normal, both eyes and all related structures Sclerae: sclerae normal EOM: EOMs intact bilaterally Neck Neck: Yes supple Lymphatic: no lymphadenopathy noted Resp Effort & Inspection: normal respiratory effort and no use of accessory muscles Auscultation: clear to auscultation bilaterally Cardio Rate: regular rate Rhythm: regular rhythm Heart sounds: no gallops, no murmurs and no rubs Skin General skin exam: other ( warm) Extrem General: No clubbing, No cyanosis and No edema Assessment & Plan Assessment & Plan (1) Dysphagia: Code(s): R13.10 - Dysphagia, unspecified Category: Medical Plan: Will obtain modified barium swallow, likely related to underlying multiple system atrophy. (2) Incidental lung nodule, greater than or equal to 8mm: Code(s): R91.1 - Solitary pulmonary nodule Category: Medical Plan: Nonsmoker, but with family history of lung cancer. Will obtain CT chest for further evaluation. Orders: Orders [place] Modified Barium Swallow Today G23.8 - Other specified degenerative diseases of basal ganglia, G90.3 - Multi-system degeneration of the autonomic nervous system CT chest wo IV con Today R91.1 - Solitary pulmonary nodule Coding Level of Care Code New Pt Level 4 (72246) Diagnoses Dysphagia R13.10 Incidental lung nodule, greater than or equal to 8mm R91.1
[2025-04-10 10:10] VITALS: BP 118/62; PULSE 118; O2SAT 93; BMI 31.6
--- OUTSIDE RECORDS SUMMARY | 2025-04-10 12:20 | XMS_ITS | Encounter Summary ---
Author Organization [facility] Address [address] [place] [address] Care Team Providers Care Medical Transcription Radiology Name Role Phone Annette Kan MD Primary Care Provider [phone] Encounter Details Date Type Department Care Team (Late st Contact Info) Description 03/03/2025 Lab Requisition [facility] - Main Lab [address] [facility] [place] [address] Rafael Licea MD [address] [place], [place] [id number] Acute cystitis without hematuria; Benign neoplasm of colon, unspecified; Hyperuricemia without signs of inflammatory arthritis and tophaceous disease; Hyperlipidemia, unspecified Social History Tobacco Use Types Packs/Day [...] PANEL WITH REFLEX TO DIRECT LDL Routine 03/05/2025 9:56 AM EDT Acute cystitis without hematuria Benign neoplasm of colon, unspecified Hyperuricemia without signs of inflammatory arthritis and tophaceous disease Hyperlipidemia, unspecified COMPLETE BLOOD COUNT Routine 03/05/2025 9:56 AM EDT Acute cystitis without hematuria Benign neoplasm of colon, unspecified Hyperuricemia without signs of inflammatory arthritis and tophaceous disease Hyperlipidemia, unspecified BASIC METABOLIC PANEL Routine 03/05/2025 9:56 AM EDT Acute cystitis without hematuria Benign neoplasm of colon, unspecified Hyperuricemia without signs of inflammatory arthritis and tophaceous disease Hyperlipidemia, unspecified documented in this encounter Results * (ABNORMAL) Lipid panel with reflex to direct LDL (03/05/2025 9:56 AM EDT) Cholesterol 166 0 - 200 mg/dL LAB CHEMISTRY METHOD 03/05/2025 12:51 PM EDT [facility] Triglycerides 160(H) 0 - 150 mg/dL LAB CHEMISTRY METHOD 03/05/2025 12:51 PM EDT [facility] Comment:Results verified by repeat testing HDL 41 >=40 mg/dL LAB CHEMISTRY METHOD 03/05/2025 12:51 PM EDT [facility] LDL Calculated 93 0 - 100 mg/dL LAB CHEMISTRY METHOD 03/05/2025 12:51 PM T [facility] Comment:Estimated LDL Calcul ated using equation: Total cholesterol - HDL cholesterol - (Triglycerides/5) VLDL Cholesterol Ke 32 mg/dL LAB CHEMISTRY METHOD 03/05/2025 12:51 PM EDT [facility] Non HDL Chol. (LDL+VLDL) 125 <145 mg/dL LAB CHEMISTRY METHOD 03/05/2025 12:51 PM EDT [facility] Chol/HDL Ratio 4.0 0.0 - 4.4 LAB CHEMISTRY METHOD 03/05/2025 12:51 PM T [facility] Blood Venous blood specimen / Unknown Venipuncture / Unknown 03/05/2025 9:56 AM EDT 03/05/2025 11:00 AM EDT us Rafael Licea MD LAB BLOOD ORDERABLES Final Resul t [facility] [address] [place] [address], * (ABNORMAL) Basic metabolic panel (03/05/2025 9:56 AM EDT) Sodium 138 133 - 145 mmol/L LAB CHEMISTRY METHOD 03/05/2025 12:31 PM [facility] Potassium 3.9 3.5 - 5.5 mmol/L LAB CHEMISTRY METHOD 03/05/2025 12:31 PM [facility] Chloride 105 96 - 110 mmol/L LAB CHEMISTRY METHOD 03/05/2025 12:31 PM [facility] CO2 28 21 - 32 mmol/L LAB CHEMISTRY METHOD 03/05/2025 12:31 PM [facility] Anion Gap 5 3 - 11 LAB CHEMISTRY METHOD 03/05/2025 12:31 PM [facility] Glucose 109(H) 70 - 100 mg/dL LAB CHEMISTRY METHOD 03/05/2025 12:31 PM [facility] BUN 14 5 - 25 mg/dL LAB CHEMISTRY METHOD 03/05/2025 12:31 PM [facility] Creatinine 0.86 0.70 - 1.30 mg/dL LAB CHEMISTRY METHOD 03/05/2025 12:31 PM [facility] eGFR 93 >=60 mL/min/1. 73m2 LAB CHEMISTRY METHOD 03/05/2025 12:31 PM [facility] Comment:Calculation based on the Chronic Kidney Disease Epidemiology Collaboration (CKD-EPI) equation refit without adjustment for race. BUN/Creatinine Ratio 16.3 LAB CHEMISTRY METHOD 03/05/2025 12:31 PM [facility] Calcium 9.3 8.5 - 10.5 mg/dL LAB CHEMISTRY METHOD 03/05/2025 12:31 PM [facility] Blood Venous blood specimen / Unknown Venipuncture / Unknown 03/05/2025 9:56 AM EDT 03/05/2025 11:00 AM EDT us Rafael Licea MD LAB BLOOD ORDERABLES Final Resul t [facility] [address] [place] [address], * (ABNORMAL) Complete blood count (03/05/2025 9:56 AM EDT) [facility] WBC 5.3 4.8 - 10.8 K/mcL LAB HEMETOLOGY METHOD 03/05/2025 2:08 PM EDT [facility] RBC 4.60 4.50 - 5.50 M/mcL LAB HEMETOLOGY METHOD 03/05/2025 2:08 PM EDT [facility] Hemoglobin 13.7 13.5 - 17.5 g/dL LAB HEMETOLOGY [facility] Hematocrit 42.4 42.0 - 54.0 % LAB HEMETOLOGY METHOD 03/05/2025 2:[facility] MCV 92.8 79.0 - 98.0 FL LAB HEMETOLOGY METHOD 03/05/2025 2:[facility] MCH 30.0 27.0 - 32.0 pcg LAB HEMETOLOGY METHOD 03/05/2025 2:[facility] MCHC 32.3 32.0 - 37.0 g/dL LAB HEMETOLOGY METHOD 03/05/2025 2:[facility] RDW 15.6(H) 11.0 - 15.0 % LAB HEMETOLOGY METHOD 03/05/2025 2:08 PM EDT [facility] Platelets 171 130 - 400 K/mcL LAB HEMETOLOGY METHOD 03/05/2025 2:08 PM EDT [facility] MPV 9.9 7.0 - 11.0 FL LAB HEMETOLOGY METHOD 03/05/2025 2:08 PM EDT [facility] NRBC 0.0 <1.0 % LAB HEMETOLOGY METHOD 03/05/2025 2:08 PM EDT [facility] NRBC Absolute 0.00 <0.10 K/mcL LAB HEMETOLOGY METHOD 03/05/2025 2:08 PM EDT [facility] Blood Venous blood specimen / Unknown Venipuncture / Unknown 03/05/2025 9:56 AM EDT 03/05/2025 11:00 AM EDT us Rafael Licea MD LAB BLOOD ORDERABLES Final Resul t [facility] [address] [place] [address], documented in this encounter Visit Diagnoses Diagnosis Acute cystitis without hematuria Benign neoplasm of colon, unspecified Hyperuricemia without signs of inflammatory arthritis and tophaceous disease Hyperlipidemia, unspecified documented in this encounter Care Teams Medical Transcription Radiology Relationship Specialty Start Date End Date Annette Kan MD [address] [place] [address] [place] [address] PCP - General Internal Medicine 07/20/24 documented as of this encounter
--- OUTSIDE RECORDS SUMMARY | 2025-04-10 12:20 | XMS_ITS | Clinical Summary ---
Author Organization [address] [facility] Address [address] [place] [address] Phone Care Team Providers Care Senior Net Architect Name Role Phone Annette Kan MD Primary Care Provider Encounters Date Type Department Care Team Description 03/09/2025 Lab Requisition [facility] [address] [place] [phone] Rafael Licea MD Acute cystitis without hematuria; Benign neoplasm of colon, unspecified; Hyperuricemia without signs of inflammatory arthritis and tophaceous disease; Hyperlipidemia, unspecified 03/03/2025 Lab Requisition [facility] [address] [place] [phone] Rafael Licea MD Acute cystitis without hematuria; Benign neoplasm of colon, unspecified; Hyperuricemia without signs of inflammatory arthritis and tophaceous disease; Hyperlipidemia, unspecified 02/26/2025 Lab Requisition [facility] [address] [place] [phone] Rafael Licea MD Essential (primary) hypertension; Gout, unspecified from Last 3 Months Social History Tobacco Use Types Packs/Day Years Used Date Smoking Tobacco: Never Assessed Sex and Gender Information Value Date Recorded Sex Assigned at Not on file Legal Sex Male 10:58 PM EST Gender Identity Not on file Sexual Orientation Not on file Plan of Treatment Health Maintenance Due Date Last Done Comments DTaP,Tdap,and Td Vaccines (1 - Tdap) 1972 Pneumococcal Vaccine: 50+ Years (1 of 1 - PCV) 10/24/2003 Zoster Vaccines (1 of 2) 10/24/2003 Abdominal Aortic Aneurysm (AAA) Screen 06/21/2022 Colorectal Cancer Screening: Colonoscopy 06/21/2022 Falls Risk Assessment 06/21/2022 Hepatitis C Screening 06/21/2022 Social Influencers of Health Screening 06/21/2022 Depression Screening 07/19/2024 COVID-19 Vaccine (1 - 2023-2 5 season) 2025 Influenza Vaccine (#1) 2025 Hypertension/CHF/CAD Annual BMP Blood Test 03/05/2026 03/05/2025, 02/26/2025, 07/20/2024 RSV Immunization Adult Patients (1 - 1-dose 75+ series) 2028 Cholesterol Screening (Lipid Panel) 03/05/2030 03/05/2025, 07/20/2024 HIB Vaccines Aged Out No longer [...] to complete this topic RSV Immunization Patients Under 20 months Aged Out No longer eligible [...] inflammatory arthritis and tophaceous disease Hyperlipidemia, unspecified URIC ACID Routine 02/26/2025 8:08 AM EDT Essential (primary) hypertension Gout, unspecified COMPREHENSIVE METABOLIC PANEL Routine 02/26/2025 8:08 AM EDT Essential (primary) hypertension Gout, unspecified COMPLETE BLOOD COUNT Routine 02/26/2025 8:08 AM EDT Essential (primary) hypertension Gout, unspecified from Last 3 Months Results * (ABNORMAL) Lipid panel with reflex to direct LDL (03/05/2025 9:56 AM EDT) Cholesterol 166 0 - 200 mg/dL LAB CHEMISTRY METHOD 03/05/2025 12:51 PM [facility] Triglycerides 160(H) 0 - 150 mg/dL LAB CHEMISTRY METHOD 03/05/2025 12:51 PM [facility] Comment:Results verified by repeat testing HDL 41 >=40 mg/dL LAB CHEMISTRY METHOD 03/05/2025 12:51 PM [facility] LDL Calculated 93 0 - 100 mg/dL LAB CHEMISTRY METHOD 03/05/2025 12:51 PM [facility] Comment:Estimated LDL Calcul ated using equation: Total cholesterol - HDL cholesterol - (Triglycerides/5) VLDL Cholesterol Ke 32 mg/dL LAB CHEMISTRY METHOD 03/05/2025 12:51 PM [facility] Non HDL Chol. (LDL+VLDL) 125 <145 mg/dL LAB CHEMISTRY METHOD 03/05/2025 12:51 PM [facility] Chol/HDL Ratio 4.0 0.0 - 4.4 LAB CHEMISTRY METHOD 03/05/2025 12:51 PM [facility] Blood Venous blood specimen / Unknown Venipuncture / Unknown 03/05/2025 9:56 AM EDT 03/05/2025 11:00 AM EDT us Rafael Licea MD LAB BLOOD ORDERABLES Final Resul t [facility] [address] [place] [address], [place] [phone] * (ABNORMAL) Complete blood count (03/05/2025 9:56 AM EDT) Only the most recent of2 resultswithin the time period is included. [facility] WBC 5.3 4.8 - 10.8 K/mcL LAB HEMETOLOGY METHOD 03/05/2025 2:08 PM EDT [facility] RBC 4.60 4.50 - 5.50 M/mcL LAB HEMETOLOGY METHOD 03/05/2025 2:08 PM EDT [facility] Hemoglobin 13.7 13.5 - 17.5 g/dL LAB HEMETOLOGY METHOD 03/05/2025 2:08 PM EDT [facility] Hematocrit 42.4 42.0 - 54.0 % LAB HEMETOLOGY METHOD 03/05/2025 2:08 PM EDT [facility] MCV 92.8 79.0 - 98.0 FL LAB HEMETOLOGY METHOD 03/05/2025 2:08 PM EDT [facility] MCH 30.0 27.0 - 32.0 pcg LAB HEMETOLOGY METHOD 03/05/2025 2:08 PM EDT [facility] MCHC 32.3 32.0 - 37.0 g/dL LAB HEMETOLOGY METHOD 03/05/2025 2:08 PM EDT [facility] RDW 15.6(H) 11.0 - 15.0 % LAB HEMETOLOGY METHOD 03/05/2025 2:08 PM EDT [facility] Platelets 171 130 - 400 K/mcL LAB HEMETOLOGY METHOD 03/05/2025 2:08 PM EDT [facility] MPV 9.9 7.0 - 11.0 FL LAB HEMETOLOGY METHOD 03/05/2025 2:08 PM EDT [facility] NRBC 0.0 <1.0 % LAB HEMETOLOGY METHOD 03/05/2025 2:08 PM EDT [facility] NRBC Absolute 0.00 <0.10 K/mcL LAB HEMETOLOGY METHOD 03/05/2025 2:08 PM EDT [facility] Blood Venous blood specimen / Unknown Venipuncture / Unknown 03/05/2025 9:56 AM EDT 03/05/2025 11:00 AM EDT us Rafael Licea MD LAB BLOOD ORDERABLES Final Resul t [facility] [address] [place] [address], * (ABNORMAL) Basic metabolic panel (03/05/2025 9:56 AM EDT) Sodium 138 133 - 145 mmol/L LAB CHEMISTRY METHOD 03/05/2025 12:31 PM [facility] Potassium 3.9 3.5 - 5.5 mmol/L LAB CHEMISTRY METHOD 03/05/2025 12:31 PM [facility] Chloride 105 96 - 110 mmol/L LAB CHEMISTRY METHOD 03/05/2025 12:31 PM [facility] CO2 28 21 - 32 mmol/L LAB CHEMISTRY METHOD 03/05/2025 12:31 PM [facility] Anion Gap 5 3 - 11 LAB CHEMISTRY METHOD 03/05/2025 12:31 PM [facility] Glucose 109(H) 70 - 100 mg/dL LAB CHEMISTRY METHOD 03/05/2025 12:31 PM [facility] BUN 14 5 - 25 mg/dL LAB CHEMISTRY METHOD 03/05/2025 12:31 PM EDT [facility] Creatinine 0.86 0.70 - 1.30 mg/dL LAB CHEMISTRY METHOD 03/05/2025 12:31 PM EDT [facility] eGFR 93 >=60 mL/min/1. 73m2 LAB CHEMISTRY METHOD 03/05/2025 12:31 PM EDT [facility] Comment:Calculation based on the Chronic Kidney Disease Epidemiology Collaboration (CKD-EPI) equation refit without adjustment for race. BUN/Creatinine Ratio 16.3 LAB CHEMISTRY METHOD 03/05/2025 12:31 PM EDT [facility] Calcium 9.3 8.5 - 10.5 mg/dL LAB CHEMISTRY METHOD 03/05/2025 12:31 PM EDT [facility] Blood Venous blood specimen / Unknown Venipuncture / Unknown 03/05/2025 9:56 AM EDT 03/05/2025 11:00 AM EDT us Rafael Licea MD LAB BLOOD ORDERABLES Final Resul t Performing Organization Address City/[facility]/ZIP Co de Phone Number [facility] [address] [place] [address], [place] [phone] * (ABNORMAL) Uric acid (02/26/2025 8:08 AM EDT) Uric Acid 3.4(L) 3.7 - 9.2 mg/dL LAB CHEMISTRY METHOD 02/26/2025 2:46 PM EDT [facility] Blood Venous blood specimen / Unknown Venipuncture / Unknown 02/26/2025 8:08 AM EDT 02/26/2025 12:10 PM EDT us Rafael Licea MD LAB BLOOD ORDERABLES Final Resul t [facility] [address] [place] [address], [place] [phone] * (ABNORMAL) Comprehensive metabolic panel (02/26/2025 8:08 AM EDT) Sodium 138 133 - 145 mmol/L LAB CHEMISTRY METHOD 02/26/2025 2:46 PM [facility] Potassium 4.1 3.5 - 5.5 mmol/L LAB CHEMISTRY METHOD 02/26/2025 2:46 PM [facility] Comment:Hemolysis present Chloride 102 96 - 110 mmol/L LAB CHEMISTRY METHOD 02/26/2025 2:46 PM [facility] CO2 29 21 - 32 mmol/L LAB CHEMISTRY METHOD 02/26/2025 2:46 PM [facility] Anion Gap 7 3 - 11 LAB CHEMISTRY METHOD 02/26/2025 2:46 PM [facility] Glucose 70 70 - 100 mg/dL LAB CHEMISTRY METHOD 02/26/2025 2:46 PM [facility] BUN 23 5 - 25 mg/dL LAB CHEMISTRY METHOD 02/26/2025 2:46 PM [facility] Creatinine 0.89 0.70 - 1.30 mg/dL LAB CHEMISTRY METHOD 02/26/2025 2:46 PM [facility] eGFR 92 >=60 mL/min/1. 73m2 LAB CHEMISTRY METHOD 02/26/2025 2:46 PM [facility] Comment:Calculation based on the Chronic Kidney Disease Epidemiology Collaboration (CKD-EPI) equation refit without adjustment for race. BUN/Creatinine Ratio 25.8 LAB CHEMISTRY METHOD 02/26/2025 2:46 PM [facility] Calcium 9.0 8.5 - 10.5 mg/dL LAB CHEMISTRY METHOD 02/26/2025 2:46 PM [facility] AST (SGOT) 67(H) 10 - 42 unit/L LAB CHEMISTRY METHOD 02/26/2025 2:46 PM EDT [facility] Comment:Hemolysis present ALT (SGPT) 114(H) 10 - 60 unit/L LAB CHEMISTRY METHOD 02/26/2025 2:46 PM EDT [facility] Alkaline Phosphatase 205(H) 42 - 121 unit/L LAB CHEMISTRY METHOD 02/26/2025 2:46 PM EDT [facility] Total Protein 6.5 6.0 - 8.0 g/dL LAB CHEMISTRY METHOD 02/26/2025 2:46 PM EDT [facility] Albumin 3.3 3.2 - 5.0 g/dL LAB CHEMISTRY METHOD 02/26/2025 2:46 PM EDT [facility] Total Bilirubin 0.4 0.0 - 1.4 mg/dL LAB CHEMISTRY METHOD 02/26/2025 2:46 PM EDT [facility] Blood Venous blood specimen / Unknown Venipuncture / Unknown 02/26/2025 8:08 AM EDT 02/26/2025 12:10 PM EDT us Rafael Licea MD LAB BLOOD ORDERABLES Final Resul t [facility] [address] [place] [address], [place] [phone] from Last 3 Months Insurance MEDICARE [facility] Care Teams Senior Net Architect Relationship Specialty Start Date End Date Annette Kan MD [address] [place] [address] [place] [address] PCP - General Internal Medicine 07/20/24
--- OUTSIDE RECORDS SUMMARY | 2025-04-10 12:20 | XMS_ITS | Encounter Summary ---
Author Organization [facility] Address [address] [place] [address] Care Team Providers Care It Integration Architect Name Role Phone Annette Kan MD Primary Care Provider Encounter Details Date Type Department Care Team (Late st Contact Info) Description 03/09/2025 Lab Requisition [facility] [address] [place] [address] Rafael Licea MD [address] [place] [address] Acute cystitis without hematuria; Benign neoplasm of [...] on file documented as of this encounter Visit Diagnoses Diagnosis Acute cystitis without hematuria Benign neoplasm of colon, unspecified Hyperuricemia without signs of inflammatory arthritis and tophaceous disease Hyperlipidemia, unspecified documented in this encounter Care Teams It Integration Architect Relationship Specialty Start Date End Date Annette Kan MD [address] [place] [address] [place] [address] PCP - General Internal Medicine 07/20/24 documented as of this encounter
--- OUTSIDE RECORDS SUMMARY | 2025-04-10 12:20 | XMS_ITS | Encounter Summary ---
Author Organization [employer] [facility] Address [address] [place] [address] Care Team Providers Care Meals [employer] Wheels Driver Name Role Phone Annette Kan MD Primary Care Provider [phone] Encounter Details Date Type Department Care Team (Latest Contact Info) Description 07/20/2024 Lab Requisition [facility] [address] [facility] [place] [address] Annette Kan MD [address] [place] [address] [place] [address] Benign prostatic hyperplasia with lower urinary tract symptoms; Other psoriasis; Progressive supranuclear ophthalmoplegia (blnmjz-Csuztdkqqx-qcfe ewski) (CMS/[facility] V24, CMS/HCC V28); Pure hypercholesterolemia, unspecified Social [...] tract symptoms Other psoriasis Progressive supranuclear ophthalmoplegia (hgjazy-Wvmaqtzlgq-qlw zewski) (CMS/[facility]) Pure hypercholesterolemia, unspecified LIPID PANEL WITH REFLEX TO DIRECT LDL Routine 07/20/2024 9:40 AM EST Benign prostatic hyperplasia with lower urinary tract symptoms Other psoriasis Progressive supranuclear ophthalmoplegia (wgwdxo-Pwgtmmnzof-oro zewski) (CMS/[facility]) Pure hypercholesterolemia, unspecified CBC WITH AUTO DIFFERENTIAL Routine 07/20/2024 9:40 AM EST Benign prostatic hyperplasia with lower urinary tract symptoms Other psoriasis Progressive supranuclear ophthalmoplegia (hpxsbv-Hbzfmgbuwd-xei zewski) (CMS/HCC) Pure hypercholesterolemia, unspecified CBC AND DIFFERENTIAL Routine 07/20/2024 9:40 AM EST Benign prostatic hyperplasia with lower urinary tract symptoms Other psoriasis Progressive supranuclear ophthalmoplegia (qmyhlc-Yeyonuktvg-ihx zewski) (CMS/HCC) Pure hypercholesterolemia, unspecified COMPREHENSIVE METABOLIC PANEL Routine 07/20/2024 9:40 AM EST Benign prostatic hyperplasia with lower urinary tract symptoms Other psoriasis Progressive supranuclear ophthalmoplegia (yzszam-Rrthjuujqb-php zewski) (CMS/HCC) Pure hypercholesterolemia, unspecified documented in this encounter Results * CBC auto differential (07/20/2024 9:40 AM EST) WBC 6.7 4.8 - 10.8 K/mcL LAB HEMETOLOGY METHOD 07/20/2024 2:35 PM [facility] RBC 4.80 4.50 - 5.50 M/mcL LAB HEMETOLOGY METHOD 07/20/2024 2:35 PM [facility] Hemoglobin 15.4 13.5 - 17.5 g/dL LAB HEMETOLOGY METHOD 07/20/2024 2:35 PM [facility] Hematocrit 46.5 42.0 - 54.0 % LAB HEMETOLOGY METHOD 07/20/2024 2:35 PM [facility] MCV 96.3 79.0 - 98.0 FL LAB HEMETOLOGY METHOD 07/20/2024 2:35 PM [facility] MCH 31.9 27.0 - 32.0 pcg LAB HEMETOLOGY METHOD 07/20/2024 2:35 PM [facility] MCHC 33.1 32.0 - 37.0 g/dL LAB HEMETOLOGY METHOD 07/20/2024 2:35 PM [facility] RDW 13.2 11.0 - 15.0 % LAB HEMETOLOGY METHOD 07/20/2024 2:35 PM [facility] Platelets 181 130 - 400 K/mcL LAB HEMETOLOGY METHOD 07/20/2024 2:35 PM [facility] MPV 10.7 7.0 - 11.0 FL LAB HEMETOLOGY METHOD 07/20/2024 2:35 PM [facility] NRBC 0.0 <1.0 % LAB HEMETOLOGY METHOD 07/20/2024 2:35 PM [facility] NRBC Absolute 0.00 <0.10 K/mcL LAB HEMETOLOGY METHOD 07/20/2024 2:35 PM [facility] Neutrophils Relative 65.9 % LAB HEMETOLOGY METHOD 07/20/2024 2:35 PM [facility] Lymphocytes Relative 21.2 % LAB HEMETOLOGY METHOD 07/20/2024 2:35 PM [facility] Monocytes Relative 9.5 % LAB HEMETOLOGY METHOD 07/20/2024 2:35 PM [facility] Eosinophils Relative 2.3 % LAB HEMETOLOGY METHOD 07/20/2024 2:35 PM [facility] Basophils Relative 0.8 % LAB HEMETOLOGY METHOD 07/20/2024 2:35 PM [facility] Immature Granulocytes Relative 0.3 % LAB HEMETOLOGY METHOD 07/20/2024 2:35 PM [facility] Neutrophils Absolute 4.40 1.50 - 7.00 K/mcL LAB HEMETOLOGY METHOD 07/20/2024 2:35 PM [facility] Lymphocytes Absolute 1.41 1.00 - 5.00 K/mcL LAB HEMETOLOGY METHOD 07/20/2024 2:35 PM [facility] Monocytes Absolute 0.63 0.20 - 1.00 K/mcL LAB HEMETOLOGY METHOD 07/20/2024 2:35 PM EST [facility] Eosinophils Absolute 0.15 0.00 - 0.50 K/mcL LAB HEMETOLOGY METHOD 07/20/2024 2:35 PM EST [facility] Basophils Absolute 0.05 0.00 - 0.20 K/mcL LAB HEMETOLOGY METHOD 07/20/2024 2:35 PM EST [facility] Immature Granulocytes Absolute 0.02 0.00 - 0.03 K/mcL LAB HEMETOLOGY METHOD 07/20/2024 2:35 PM EST [facility] Blood Venous blood specimen / Unknown 07/20/2024 9:40 AM EST 07/20/2024 2:14 PM EST us Annette Kan MD LAB BLOOD ORDERABLES Final Re sult Performing Organization Address [facility] de Phone Number [facility] [address] [place] [address], * Prostate specific antigen screen (07/20/2024 9:40 AM EST) PSA 4.00 0.00 - 4.00 ng/mL LAB CHEMISTRY METHOD 07/20/2024 3:03 PM EST [facility] Blood Venous blood specimen / Unknown 07/20/2024 9:40 AM EST 07/20/2024 2:14 PM EST Narrative [facility] - 07/20/2024 3:03 PM EST The Siemens Advia Centaur Chemiluminescent Immunoassay is used. Results obtained with different assay methods or kits cannot be used interchangeably. Results cannot be interpreted as absolute evidence of the presence or absence of malignant disease. us Annette Kan MD LAB BLOOD ORDERABLES Final Re sult Performing Organization Address City/[facility]/ZIP Co de Phone Number [facility] [address] [place] [address], [place] [phone] * (ABNORMAL) Lipid panel with reflex to direct LDL (07/20/2024 9:40 AM EST) Cholesterol 182 0 - 200 mg/dL LAB CHEMISTRY METHOD 07/20/2024 2:58 PM EST [facility] Triglycerides 83 0 - 150 mg/dL LAB CHEMISTRY METHOD 07/20/2024 2:58 PM EST [facility] HDL 57 >=40 mg/dL LAB CHEMISTRY METHOD 07/20/2024 2:58 PM [facility] LDL Calculated 108(H) 0 - 100 mg/dL LAB CHEMISTRY METHOD 07/20/2024 2:58 PM [facility] VLDL Cholesterol Ke 16.6 mg/dL LAB CHEMISTRY METHOD 07/20/2024 2:58 PM [facility] Non HDL Chol. (LDL+VLDL) 125 <145 mg/dL LAB CHEMISTRY METHOD 07/20/2024 2:58 PM EST [facility] Chol/HDL Ratio 3.2 0.0 - 4.4 LAB CHEMISTRY METHOD 07/20/2024 2:58 PM [facility] Blood Venous blood specimen / Unknown 07/20/2024 9:40 AM EST 07/20/2024 2:14 PM EST us Annette Kan MD LAB BLOOD ORDERABLES Final Re sult [facility] [address] [place] [address], [place] [phone] * Comprehensive metabolic panel (07/20/2024 9:40 AM EST) Pathologist [facility] Sodium 135 133 - 145 mmol/L LAB CHEMISTRY METHOD 07/20/2024 2:58 PM [facility] Potassium 4.0 3.5 - 5.5 mmol/L LAB CHEMISTRY METHOD 07/20/2024 2:58 PM [facility] Chloride 103 96 - 110 mmol/L LAB CHEMISTRY METHOD 07/20/2024 2:58 PM [facility] CO2 27 21 - 32 mmol/L LAB CHEMISTRY METHOD 07/20/2024 2:58 PM [facility] Anion Gap 5 3 - 11 LAB CHEMISTRY METHOD 07/20/2024 2:58 PM [facility] Glucose 88 70 - 100 mg/dL LAB CHEMISTRY METHOD 07/20/2024 2:58 PM [facility] BUN 20 5 - 25 mg/dL LAB CHEMISTRY METHOD 07/20/2024 2:58 PM [facility] Creatinine 0.93 0.70 - 1.30 mg/dL LAB CHEMISTRY METHOD 07/20/2024 2:58 PM [facility] eGFR 88 >=60 mL/min/1. 73m2 LAB CHEMISTRY METHOD 07/20/2024 2:58 PM [facility] Comment:Calculation based on the Chronic Kidney Disease Epidemiology Collaboration (CKD-EPI) equation refit without adjustment for race. BUN/Creatinine Ratio 21.5 LAB CHEMISTRY METHOD 07/20/2024 2:58 PM [facility] Calcium 9.7 8.5 - 10.5 mg/dL LAB CHEMISTRY METHOD 07/20/2024 2:58 PM [facility] AST (SGOT) 19 10 - 42 unit/L LAB CHEMISTRY METHOD 07/20/2024 2:58 PM [facility] ALT (SGPT) 39 10 - 60 unit/L LAB CHEMISTRY METHOD 07/20/2024 2:58 PM [facility] Alkaline Phosphatase 86 42 - 121 unit/L LAB CHEMISTRY METHOD 07/20/2024 2:58 PM [facility] Total Protein 7.5 6.0 - 8.0 g/dL LAB CHEMISTRY METHOD 07/20/2024 2:58 PM [facility] Albumin 4.1 3.2 - 5.0 g/dL LAB CHEMISTRY METHOD 07/20/2024 2:58 PM EST [facility] Total Bilirubin 0.6 0.0 - 1.4 mg/dL LAB CHEMISTRY METHOD 07/20/2024 2:58 PM EST [facility] Blood Venous blood specimen / Unknown 07/20/2024 9:40 AM EST 07/20/2024 2:14 PM EST us Annette Kan MD LAB BLOOD ORDERABLES Final Re sult [facility] [address] [place] [address], documented in this encounter Visit Diagnoses Diagnosis Benign prostatic hyperplasia with lower urinary tract symptoms Other psoriasis Progressive supranuclear ophthalmoplegia (ljigsr-Txzfylctmx-tqwzbbduk) (CMS/[facility] V24, CMS/[facility] V28) Pure hypercholesterolemia, unspecified documented in this encounter Care Teams Meals On Wheels Driver Relationship Specialty Start Date End Date Annette Kan MD [address] [place] [address] [place] [address] PCP - General Internal Medicine 07/20/24 documented as of this encounter
--- OUTSIDE RECORDS SUMMARY | 2025-04-10 12:20 | XMS_ITS | Encounter Summary ---
Author Organization [employer] [facility] Address [address] [place] [address] Care Team Providers Care Equipment Mechanic Specialist Name Role Phone Annette Kan MD Primary Care Provider [phone] Encounter Details Date Type Department Care Team (Late st Contact Info) Description 02/26/2025 Lab Requisition [facility] - Main Lab [address] [facility] [employer] [place] [address] Rafael Licea MD [address] [place] [address] Essential (primary) hypertension; Gout, unspecified Social History Tobacco Use Types Packs/Day [...] Procedure Name Priority Date/Time Associated Diagnosis Comments COMPLETE BLOOD COUNT Routine 02/26/2025 8:08 AM EDT Essential (primary) hypertension Gout, unspecified URIC ACID Routine 02/26/2025 8:08 AM EDT Essential (primary) hypertension Gout, unspecified COMPREHENSIVE METABOLIC PANEL Routine 02/26/2025 8:08 AM EDT Essential (primary) hypertension Gout, unspecified documented in this encounter Results * (ABNORMAL) Uric acid (02/26/2025 8:08 AM EDT) Uric Acid 3.4(L) 3.7 - 9.2 mg/dL LAB CHEMISTRY METHOD 02/26/2025 2:[address] [facility] Blood Venous blood specimen / Unknown Venipuncture / Unknown 02/26/2025 8:08 AM EDT 02/26/2025 12:10 PM EDT Rafael Licea MD LAB BLOOD ORDERABLES Final Resul t [facility] [address] [place] [address], * (ABNORMAL) Comprehensive metabolic panel (02/26/2025 8:08 AM EDT) Sodium 138 133 - 145 mmol/L LAB CHEMISTRY METHOD 02/26/2025 2:46 PM [facility] Potassium 4.1 3.5 - 5.5 mmol/L LAB CHEMISTRY METHOD 02/26/2025 2:46 PM T [facility] Comment:Hemolysis present Chloride 102 96 - 110 mmol/L LAB CHEMISTRY METHOD 02/26/2025 2:46 PM [facility] CO2 29 21 - 32 mmol/L LAB CHEMISTRY METHOD 02/26/2025 2:46 PM [facility] Anion Gap 7 3 - 11 LAB CHEMISTRY METHOD 02/26/2025 2:46 PM [facility] Glucose 70 70 - 100 mg/dL LAB CHEMISTRY METHOD 02/26/2025 2:46 PM [facility] BUN 23 5 - 25 mg/dL LAB CHEMISTRY METHOD 02/26/2025 2:46 PM [facility] Creatinine 0.89 0.70 - 1.30 mg/dL LAB CHEMISTRY METHOD 02/26/2025 2:46 PM [facility] eGFR 92 >=60 mL/min/1. 73m2 LAB CHEMISTRY METHOD 02/26/2025 2:46 PM [facility] Comment:Calculation based on the Chronic Kidney Disease Epidemiology Collaboration (CKD-EPI) equation refit without adjustment for race. BUN/Creatinine Ratio 25.8 LAB CHEMISTRY METHOD 02/26/2025 2:46 PM EDT [facility] Calcium 9.0 8.5 - 10.5 mg/dL LAB CHEMISTRY METHOD 02/26/2025 2:46 PM [facility] AST (SGOT) 67(H) 10 - 42 unit/L LAB CHEMISTRY METHOD 02/26/2025 2:46 PM T [facility] Comment:Hemolysis present ALT (SGPT) 114(H) 10 - 60 unit/L LAB CHEMISTRY METHOD 02/26/2025 2:46 PM T [facility] Alkaline Phosphatase 205(H) 42 - 121 unit/L LAB CHEMISTRY METHOD 02/26/2025 2:46 PM [facility] Total Protein 6.5 6.0 - 8.0 g/dL LAB CHEMISTRY METHOD 02/26/2025 2:46 PM T [facility] Albumin 3.3 3.2 - 5.0 g/dL LAB CHEMISTRY METHOD 02/26/2025 2:46 PM [facility] Total Bilirubin 0.4 0.0 - 1.4 mg/dL LAB CHEMISTRY METHOD 02/26/2025 2:46 PM [facility] Blood Venous blood specimen / Unknown Venipuncture / Unknown 02/26/2025 8:08 AM EDT 02/26/2025 12:10 PM EDT us Rafael Licea MD LAB BLOOD ORDERABLES Final Resul t [facility] [address] [place] [address], * (ABNORMAL) Complete blood count (02/26/2025 8:08 AM EDT) WBC 9.7 4.8 - 10.8 K/mcL LAB HEMETOLOGY METHOD 02/26/2025 1:31 PM [facility] RBC 4.60 4.50 - 5.50 M/mcL LAB HEMETOLOGY METHOD 02/26/2025 1:31 PM [facility] Hemoglobin 13.9 13.5 - 17.5 g/dL LAB HEMETOLOGY METHOD 02/26/2025 1:31 PM [facility] Hematocrit 43.7 42.0 - 54.0 % LAB HEMETOLOGY METHOD 02/26/2025 1:31 PM [facility] MCV 95.8 79.0 - 98.0 FL LAB HEMETOLOGY METHOD 02/26/2025 1:31 PM [facility] MCH 30.5 27.0 - 32.0 pcg LAB HEMETOLOGY METHOD 02/26/2025 1:31 PM [facility] MCHC 31.8(L) 32.0 - 37.0 g/dL LAB HEMETOLOGY METHOD 02/26/2025 1:31 PM [facility] RDW 15.2(H) 11.0 - 15.0 % LAB HEMETOLOGY METHOD 02/26/2025 1:31 PM [facility] Platelets 180 130 - 400 K/mcL LAB HEMETOLOGY METHOD 02/26/2025 1:31 PM [facility] MPV 9.7 7.0 - 11.0 FL LAB HEMETOLOGY METHOD 02/26/2025 1:31 PM [facility] NRBC 0.0 <1.0 % LAB HEMETOLOGY METHOD 02/26/2025 1:31 PM [facility] NRBC Absolute 0.00 <0.10 K/mcL LAB HEMETOLOGY METHOD 02/26/2025 1:31 PM [facility] Blood Venous blood specimen / Unknown Venipuncture / Unknown 02/26/2025 8:08 AM EDT 02/26/2025 12:10 PM EDT us Rafael Licea MD LAB BLOOD ORDERABLES Final Resul t [facility] ([facility] [address] [place] [address], documented in this encounter Visit Diagnoses Diagnosis Essential (primary) hypertension Unspecified essential hypertension Gout, unspecified documented in this encounter Care Teams Equipment Mechanic Specialist Relationship Specialty Start Date End Date Annette Kan MD [address] [place] [address] [place] [address] PCP - General Internal Medicine 07/20/24 documented as of this encounter
== END 2025-04-10 10:27 | disposition home or self-care (01) ==
LOC: HO.HPS 10:09
PROVIDERS: PCP Internal Medicine; Referring Provider Internal Medicine; Visit Provider Internal Medicine Pulmonary Disease
DX: R13.10 Dysphagia, unspecified (principal); R91.1 Solitary pulmonary nodule
CPT/HCPCS: 99204

== ENCOUNTER 2025-04-18 12:07 | Outpatient (REF) | payer BC, SELFPAY ==
--- OUTSIDE RECORDS SUMMARY | 2025-04-18 13:50 | XMS_ITS | Clinical Summary ---
Author Organization 299 [facility] Address [address] [place] [address] Phone Care Team Providers Care Pharmacy Innovation Assistant Name Role Phone Annette Kan MD Primary Care Provider [phone] Encounters Date Type Department Care Team Description 03/09/2025 Lab Requisition [facility] [address] [place] [phone] Rafael Licea MD Acute cystitis without hematuria; Benign neoplasm of colon, unspecified; Hyperuricemia without signs of inflammatory arthritis and tophaceous disease; Hyperlipidemia, unspecified 03/03/2025 Lab Requisition [facility] [address] [place] [phone] Rafael Licea MD Acute cystitis without hematuria; Benign neoplasm of colon, unspecified; Hyperuricemia without signs of inflammatory arthritis and tophaceous disease; Hyperlipidemia, unspecified 02/26/2025 Lab Requisition [facility] [address] [place] [phone] Rafael Licea MD Essential (primary) hypertension; Gout, [...] Health Maintenance Due Date Last Done Comments Colorectal Cancer Screening: Colonoscopy 1955 DTaP,Tdap,and Td Vaccines (1 - Tdap) 1972 Pneumococcal Vaccine: 50+ Years (1 of 1 - PCV) 10/24/2003 Zoster Vaccines (1 of 2) 10/24/2003 Abdominal Aortic Aneurysm (AAA) Screen 06/21/2022 Falls Risk Assessment 06/21/2022 Hepatitis C [...] mg/dL LAB CHEMISTRY METHOD 03/05/2025 12:51 PM [facility] Triglycerides 160(H) 0 - 150 mg/dL LAB CHEMISTRY METHOD 03/05/2025 12:51 PM [facility] Comment:Results verified by repeat testing HDL 41 >=40 mg/dL LAB CHEMISTRY METHOD 03/05/2025 12:51 PM [facility] LDL Calculated 93 0 - 100 mg/dL LAB CHEMISTRY METHOD 03/05/2025 12:51 PM [facility] Comment:Estimated LDL Calcul ated using equation: Total cholesterol - HDL cholesterol - (Triglycerides/5) VLDL Cholesterol Ke 32 mg/dL LAB CHEMISTRY METHOD 03/05/2025 12:51 PM [facility] Non HDL Chol. (LDL+VLDL) 125 <145 mg/dL LAB CHEMISTRY METHOD 03/05/2025 12:51 PM [facility] Chol/HDL Ratio 4.0 0.0 - 4.4 LAB CHEMISTRY METHOD 03/05/2025 12:51 PM [facility] Blood Venous blood specimen / Unknown Venipuncture / Unknown 03/05/2025 9:56 AM EDT 03/05/2025 11:00 AM EDT us Rafael Licea MD LAB BLOOD ORDERABLES Final Resul t [facility] [address] [place] [address], [place] [phone] * (ABNORMAL) Complete blood count (03/05/2025 9:56 AM EDT) Only the most recent of2 resultswithin the time period is included. [facility] WBC 5.3 4.8 - 10.8 K/mcL LAB HEMETOLOGY METHOD 03/05/2025 2:08 PM EDT [facility] RBC 4.60 4.50 - 5.50 M/mcL LAB HEMETOLOGY METHOD 03/05/2025 2:08 PM EDT [facility] Hemoglobin 13.7 13.5 - 17.5 g/dL LAB HEMETOLOGY METHOD 03/05/2025 2:08 PM EDT [facility] Hematocrit 42.4 42.0 - 54.0 % LAB HEMETOLOGY METHOD 03/05/2025 2:08 PM EDT [facility] MCV 92.8 79.0 - 98.0 FL LAB HEMETOLOGY METHOD 03/05/2025 2:08 PM EDT [facility] MCH 30.0 27.0 - 32.0 pcg LAB HEMETOLOGY METHOD 03/05/2025 2:08 PM EDT [facility] MCHC 32.3 32.0 - 37.0 g/dL LAB HEMETOLOGY METHOD 03/05/2025 2:08 PM EDT [facility] RDW 15.6(H) 11.0 - 15.0 % LAB HEMETOLOGY METHOD 03/05/2025 2:08 PM EDT [facility] Platelets 171 130 - 400 K/mcL LAB HEMETOLOGY METHOD 03/05/2025 2:08 PM EDT [facility] MPV 9.9 7.0 - 11.0 FL LAB HEMETOLOGY METHOD 03/05/2025 2:08 PM EDT [facility] NRBC 0.0 <1.0 % LAB HEMETOLOGY METHOD 03/05/2025 2:08 PM EDT [facility] NRBC Absolute 0.00 <0.10 K/mcL LAB HEMETOLOGY METHOD 03/05/2025 2:08 PM EDT [facility] Blood Venous blood specimen / Unknown Venipuncture / Unknown 03/05/2025 9:56 AM EDT 03/05/2025 11:00 AM EDT us Rafael Licea MD LAB BLOOD ORDERABLES Final Resul t [facility] [address] [place] [address], * (ABNORMAL) Basic metabolic panel (03/05/2025 9:56 AM EDT) Sodium 138 133 - 145 mmol/L LAB CHEMISTRY METHOD 03/05/2025 12:31 PM [facility] Potassium 3.9 3.5 - 5.5 mmol/L LAB CHEMISTRY METHOD 03/05/2025 12:31 PM [facility] Chloride 105 96 - 110 mmol/L LAB CHEMISTRY METHOD 03/05/2025 12:31 PM [facility] CO2 28 21 - 32 mmol/L LAB CHEMISTRY METHOD 03/05/2025 12:31 PM [facility] Anion Gap 5 3 - 11 LAB CHEMISTRY METHOD 03/05/2025 12:31 PM [facility] Glucose 109(H) 70 - 100 mg/dL LAB CHEMISTRY METHOD 03/05/2025 12:31 PM [facility] BUN 14 5 - 25 mg/dL LAB CHEMISTRY METHOD 03/05/2025 12:31 PM EDT [facility] Creatinine 0.86 0.70 - 1.30 mg/dL LAB CHEMISTRY METHOD 03/05/2025 12:31 PM EDT [facility] eGFR 93 >=60 mL/min/1. 73m2 LAB CHEMISTRY METHOD 03/05/2025 12:31 PM EDT [facility] Comment:Calculation based on the Chronic Kidney Disease Epidemiology Collaboration (CKD-EPI) equation refit without adjustment for race. BUN/Creatinine Ratio 16.3 LAB CHEMISTRY METHOD 03/05/2025 12:31 PM EDT [facility] Calcium 9.3 8.5 - 10.5 mg/dL LAB CHEMISTRY METHOD 03/05/2025 12:31 PM EDT [facility] Blood Venous blood specimen / Unknown Venipuncture / Unknown 03/05/2025 9:56 AM EDT 03/05/2025 11:00 AM EDT us Rafael Licea MD LAB BLOOD ORDERABLES Final Resul t Performing Organization Address City/[facility]/ZIP Co de Phone Number [facility] [address] [place] [address], [place] [phone] * (ABNORMAL) Uric acid (02/26/2025 8:08 AM EDT) Uric Acid 3.4(L) 3.7 - 9.2 mg/dL LAB CHEMISTRY METHOD 02/26/2025 2:46 PM EDT [facility] Blood Venous blood specimen / Unknown Venipuncture / Unknown 02/26/2025 8:08 AM EDT 02/26/2025 12:10 PM EDT us Rafael Licea MD LAB BLOOD ORDERABLES Final Resul t [facility] [address] [place] [address], [place] [phone] * (ABNORMAL) Comprehensive metabolic panel (02/26/2025 8:08 AM EDT) Sodium 138 133 - 145 mmol/L LAB CHEMISTRY METHOD 02/26/2025 2:46 PM [facility] Potassium 4.1 3.5 - 5.5 mmol/L LAB CHEMISTRY METHOD 02/26/2025 2:46 PM [facility] Comment:Hemolysis present Chloride [...] 25.8 LAB CHEMISTRY METHOD 02/26/2025 2:46 PM [facility] Calcium 9.0 8.5 - 10.5 mg/dL LAB CHEMISTRY METHOD 02/26/2025 2:46 PM [facility] AST (SGOT) 67(H) 10 - 42 unit/L LAB CHEMISTRY METHOD 02/26/2025 2:46 PM EDT [facility] Comment:Hemolysis present ALT (SGPT) 114(H) 10 - 60 unit/L LAB CHEMISTRY METHOD 02/26/2025 2:46 PM EDT [facility] Alkaline Phosphatase 205(H) 42 - 121 unit/L LAB CHEMISTRY METHOD 02/26/2025 2:46 PM EDT [facility] Total Protein 6.5 6.0 - 8.0 g/dL LAB CHEMISTRY METHOD 02/26/2025 2:46 PM EDT [facility] Albumin 3.3 3.2 - 5.0 g/dL LAB CHEMISTRY METHOD 02/26/2025 2:46 PM EDT [facility] Total Bilirubin 0.4 0.0 - 1.4 mg/dL LAB CHEMISTRY METHOD 02/26/2025 2:46 PM EDT [facility] Blood Venous blood specimen / Unknown Venipuncture / Unknown 02/26/2025 8:08 AM EDT 02/26/2025 12:10 PM EDT us Rafael Licea MD LAB BLOOD ORDERABLES Final Resul t [facility] [address] [place] [address], [place] [phone] from Last 3 Months Insurance MEDICARE [facility] Care Teams Pharmacy Innovation Assistant Relationship Specialty Start Date End Date Annette Kan MD [address] [place] [address] [place] [address] PCP - General Internal Medicine 07/20/24
--- OUTSIDE RECORDS SUMMARY | 2025-04-18 13:50 | XMS_ITS | Encounter Summary ---
Author Organization [employer] [facility] Address [address] [place] [address] Care Team Providers Care Reception Specialist Name Role Phone Annette Kan MD Primary Care Provider [phone] Encounter Details Date Type Department Care Team (Latest Contact Info) Description 07/20/2024 Lab Requisition [facility] - Main Lab [address] [facility] [place] [address] Annette Kan MD [address] [place] [address] [place] [address] Benign prostatic hyperplasia with lower urinary tract symptoms; Other psoriasis; Progressive supranuclear ophthalmoplegia (lwquss-Foxanvcpyi-mzbb ewski) (CMS/FORMERLY [facility] V24, CMS/HCC V28); Pure hypercholesterolemia, unspecified Social [...] tract symptoms Other psoriasis Progressive supranuclear ophthalmoplegia (vmwjwv-Grkomtweve-bnu zewski) (CMS/FORMERLY [facility]) Pure hypercholesterolemia, unspecified LIPID PANEL WITH REFLEX TO DIRECT LDL Routine 07/20/2024 9:40 AM EST Benign prostatic hyperplasia with lower urinary tract symptoms Other psoriasis Progressive supranuclear ophthalmoplegia (kwpumn-Xrpjgsijqu-cyu zewski) (CMS/FORMERLY [facility]) Pure hypercholesterolemia, unspecified CBC WITH AUTO DIFFERENTIAL Routine 07/20/2024 9:40 AM EST Benign prostatic hyperplasia with lower urinary tract symptoms Other psoriasis Progressive supranuclear ophthalmoplegia (xgrwhe-Rebwfnezpw-fqn zewski) (CMS/HCC) Pure hypercholesterolemia, unspecified CBC AND DIFFERENTIAL Routine 07/20/2024 9:40 AM EST Benign prostatic hyperplasia with lower urinary tract symptoms Other psoriasis Progressive supranuclear ophthalmoplegia (tseune-Yzczvhpgtr-sfi zewski) (CMS/HCC) Pure hypercholesterolemia, unspecified COMPREHENSIVE METABOLIC PANEL Routine 07/20/2024 9:40 AM EST Benign prostatic hyperplasia with lower urinary tract symptoms Other psoriasis Progressive supranuclear ophthalmoplegia (wyakfj-Gdwtnribek-rjp zewski) (CMS/HCC) Pure hypercholesterolemia, unspecified documented in [...] LAB HEMETOLOGY METHOD 07/20/2024 2:[address] [facility] Eosinophils Absolute 0.15 0.00 - 0.50 K/mcL LAB HEMETOLOGY METHOD 07/20/2024 2:[address] [facility] Basophils Absolute 0.05 0.00 - 0.20 K/mcL LAB HEMETOLOGY METHOD 07/20/2024 2:[address] [facility] Immature Granulocytes Absolute 0.02 0.00 - 0.03 K/mcL LAB HEMETOLOGY METHOD 07/20/2024 2:[address] [facility] Blood Venous blood specimen / Unknown 07/20/2024 9:40 AM EST 07/20/2024 2:14 PM EST us Annette Kan MD LAB BLOOD ORDERABLES Final Re sult Performing Organization Address [facility] de Phone Number [facility] [address] [place] [address], * Prostate specific antigen screen (07/20/2024 9:40 AM EST) PSA 4.00 0.00 - 4.00 ng/mL LAB CHEMISTRY METHOD 07/20/2024 3:[address] [facility] Blood Venous blood specimen / Unknown 07/20/2024 9:40 AM EST 07/20/2024 2:[address] [facility] - 07/20/2024 3:03 PM EST The Siemens Advia Centaur Chemiluminescent Immunoassay is used. Results obtained with different assay methods or kits cannot be used interchangeably. Results cannot be interpreted as absolute evidence of the presence or absence of malignant disease. us Annette Kan MD LAB BLOOD ORDERABLES Final Re sult Performing Organization Address City/[facility]/ZIP Co de Phone Number [facility] [address] [place] [address], [place] [phone] * (ABNORMAL) Lipid panel with reflex to direct LDL (07/20/2024 9:40 AM EST) Cholesterol 182 0 - 200 mg/dL LAB CHEMISTRY METHOD 07/20/2024 2:[address] [facility] Triglycerides 83 0 - 150 mg/dL LAB CHEMISTRY METHOD 07/20/2024 2:[address] [facility] HDL 57 >=40 mg/dL LAB CHEMISTRY METHOD 07/20/2024 2:58 PM [facility] LDL Calculated 108(H) 0 - 100 mg/dL LAB CHEMISTRY METHOD 07/20/2024 2:58 PM [facility] VLDL Cholesterol Ke 16.6 mg/dL LAB CHEMISTRY METHOD 07/20/2024 2:58 PM [facility] Non HDL Chol. (LDL+VLDL) 125 <145 mg/dL LAB CHEMISTRY METHOD 07/20/2024 2:[address] [facility] Chol/HDL Ratio 3.2 0.0 - 4.4 LAB CHEMISTRY METHOD 07/20/2024 2:58 PM [facility] Blood Venous blood specimen / Unknown 07/20/2024 9:40 AM EST 07/20/2024 2:14 PM EST us Annette Kan MD LAB BLOOD ORDERABLES Final Re sult [facility] [address] [place] [address], [place] [phone] * Comprehensive metabolic panel (07/20/2024 9:40 AM EST) Pathologist [facility] Sodium 135 133 - 145 mmol/L LAB [...] LAB CHEMISTRY METHOD 07/20/2024 2:[address] [facility] Total Bilirubin 0.6 0.0 - 1.4 mg/dL LAB CHEMISTRY METHOD 07/20/2024 2:[address] [facility] Blood Venous blood specimen / Unknown 07/20/2024 9:40 AM EST 07/20/2024 2:14 PM EST us Annette Kan MD LAB BLOOD ORDERABLES Final Re sult [facility] [address] [place] [address], documented in this encounter Visit Diagnoses Diagnosis Benign prostatic hyperplasia with lower urinary tract symptoms Other psoriasis Progressive supranuclear ophthalmoplegia (rhjcod-Zrpglokbjb-ezftwphlr) (CMS/[facility]LY [facility] V24, CMS/[facility]ER[facility] V28) Pure hypercholesterolemia, unspecified documented in this encounter Care Teams Reception Specialist Relationship Specialty Start Date End Date Annette Kan MD [address] [place] [address] [place] [address] PCP - General Internal Medicine 07/20/24 documented as of this encounter
--- OUTSIDE RECORDS SUMMARY | 2025-04-18 13:50 | XMS_ITS | Encounter Summary ---
Author Organization [employer] Address [address] [place] [address] Care Team Providers Care Director Software Development Name Role Phone Annette Kan MD Primary Care Provider [phone] Encounter Details Date Type Department Care Team (Late st Contact Info) Description 03/03/2025 Lab Requisition [facility] - Main Lab [address] [facility] [place] [address] Rafael Licea MD [address] [place], [place] [id number] Acute cystitis without hematuria; Benign neoplasm of [...] LAB CHEMISTRY METHOD 03/05/2025 12:51 PM EDT [facility] Triglycerides 160(H) 0 - 150 mg/dL LAB CHEMISTRY METHOD 03/05/2025 12:51 PM EDT [facility] Comment:Results verified by repeat testing HDL 41 >=40 mg/dL LAB CHEMISTRY METHOD 03/05/2025 12:51 PM EDT [facility] LDL Calculated 93 0 - 100 mg/dL LAB CHEMISTRY METHOD 03/05/2025 12:51 PM T [facility] Comment:Estimated LDL Calcul ated using equation: Total cholesterol - HDL cholesterol - (Triglycerides/5) VLDL Cholesterol Ke 32 mg/dL LAB CHEMISTRY METHOD 03/05/2025 12:51 PM EDT [facility] Non HDL Chol. (LDL+VLDL) 125 <145 mg/dL LAB CHEMISTRY METHOD 03/05/2025 12:51 PM EDT [facility] Chol/HDL Ratio 4.0 0.0 - 4.4 LAB CHEMISTRY METHOD 03/05/2025 12:51 PM T [facility] Blood Venous blood specimen / Unknown Venipuncture / Unknown 03/05/2025 9:56 AM EDT 03/05/2025 11:00 AM EDT us Rafael Licea MD LAB BLOOD ORDERABLES Final Resul t [facility] [address] [place] [address], * (ABNORMAL) Basic metabolic panel (03/05/2025 9:56 AM EDT) Sodium 138 133 - 145 mmol/L LAB CHEMISTRY METHOD 03/05/2025 12:31 PM [facility] Potassium 3.9 3.5 - 5.5 mmol/L LAB CHEMISTRY METHOD 03/05/2025 12:31 PM [facility] Chloride 105 96 - 110 mmol/L LAB CHEMISTRY METHOD 03/05/2025 12:31 PM [facility] CO2 28 21 - 32 mmol/L LAB CHEMISTRY METHOD 03/05/2025 12:31 PM [facility] Anion Gap 5 3 - 11 LAB CHEMISTRY METHOD 03/05/2025 12:31 PM [facility] Glucose 109(H) 70 - 100 mg/dL LAB CHEMISTRY METHOD 03/05/2025 12:31 PM [facility] BUN 14 5 - 25 mg/dL LAB CHEMISTRY METHOD 03/05/2025 12:31 PM [facility] Creatinine 0.86 0.70 - 1.30 mg/dL LAB CHEMISTRY METHOD 03/05/2025 12:31 PM [facility] eGFR 93 >=60 mL/min/1. 73m2 LAB CHEMISTRY METHOD 03/05/2025 12:31 PM [facility] Comment:Calculation based on the Chronic Kidney Disease Epidemiology Collaboration (CKD-EPI) equation refit without adjustment for race. BUN/Creatinine Ratio 16.3 LAB CHEMISTRY METHOD 03/05/2025 12:31 PM [facility] Calcium 9.3 8.5 - 10.5 mg/dL LAB CHEMISTRY METHOD 03/05/2025 12:31 PM [facility] Blood Venous blood specimen / Unknown Venipuncture / Unknown 03/05/2025 9:56 AM EDT 03/05/2025 11:00 AM EDT us Rafael Licea MD LAB BLOOD ORDERABLES Final Resul t [facility] [address] [place] [address], * (ABNORMAL) Complete blood count (03/05/2025 9:56 AM EDT) [facility] WBC 5.3 4.8 - 10.8 K/mcL LAB HEMETOLOGY METHOD 03/05/2025 2:08 PM EDT [facility] RBC 4.60 4.50 - 5.50 M/mcL LAB HEMETOLOGY METHOD 03/05/2025 2:08 PM EDT [facility] Hemoglobin 13.7 13.5 - 17.5 g/dL LAB HEMETOLOGY METHOD [facility]/05[facility] Hematocrit 42.4 42.0 - 54.0 % LAB HEMETOLOGY METHOD 03/05/2025 2:[facility] MCV 92.8 79.0 - 98.0 FL LAB HEMETOLOGY METHOD 03/05/2025 2:[facility] MCH 30.0 27.0 - 32.0 pcg LAB HEMETOLOGY METHOD 03/05/2025 2:08 [facility] MCHC 32.3 32.0 - 37.0 g/dL LAB HEMETOLOGY METHOD 03/05/2025 2:08 [facility] RDW 15.6(H) 11.0 - 15.0 % LAB HEMETOLOGY METHOD 03/05/2025 2:08 PM EDT [facility] Platelets 171 130 - 400 K/mcL LAB HEMETOLOGY METHOD 03/05/2025 2:08 PM EDT [facility] MPV 9.9 7.0 - 11.0 FL LAB HEMETOLOGY METHOD 03/05/2025 2:08 PM EDT [facility] NRBC 0.0 <1.0 % LAB HEMETOLOGY METHOD 03/05/2025 2:08 PM EDT [facility] NRBC Absolute 0.00 <0.10 K/mcL LAB HEMETOLOGY METHOD 03/05/2025 2:08 PM EDT [facility] Blood Venous blood specimen / Unknown Venipuncture / Unknown 03/05/2025 9:56 AM EDT 03/05/2025 11:00 AM EDT us Rafael Licea MD LAB BLOOD ORDERABLES Final Resul t [facility] [address] [place] [address], documented in this encounter Visit Diagnoses Diagnosis Acute cystitis without hematuria Benign neoplasm of colon, unspecified Hyperuricemia without signs of inflammatory arthritis and tophaceous disease Hyperlipidemia, unspecified documented in this encounter Care Teams Director Software Development Relationship Specialty Start Date End Date Annette Kan MD [address] [place] [address] [place] [address] PCP - General Internal Medicine 07/20/24 documented as of this encounter
--- OUTSIDE RECORDS SUMMARY | 2025-04-18 13:50 | XMS_ITS | Encounter Summary ---
Author Organization [employer] Address [address] [place] [address] Care Team Providers Care Panel Edge Sealer Name Role Phone Annette Kan MD Primary Care Provider Encounter Details Date Type Department Care Team (Late st Contact Info) Description 03/09/2025 Lab Requisition [facility] - Main Lab [address] [facility] [place] [address] Rafael Licea MD [address] [place] [address] Acute cystitis without hematuria; Benign neoplasm of [...] unspecified documented in this encounter Care Teams Panel Edge Sealer Relationship Specialty Start Date End Date Annette Kan MD [address] [place] [address] [place] [address] PCP - General Internal Medicine 07/20/24 documented as of this encounter
--- OUTSIDE RECORDS SUMMARY | 2025-04-18 13:50 | XMS_ITS | Encounter Summary ---
Author Organization [employer] [facility] Address [address] [place] [address] Care Team Providers Care Carrot Buncher Name Role Phone Annette Kan MD Primary Care Provider [phone] Encounter Details Date Type Department Care Team (Late st Contact Info) Description 02/26/2025 Lab Requisition [facility] - Main Lab [address] [facility] [place] [address] Rafael Licea MD [address] [place] [address] Essential (primary) hypertension; Gout, unspecified Social History [...] LAB CHEMISTRY METHOD 02/26/2025 2:46 PM EDT [facility] Blood Venous blood specimen / Unknown Venipuncture / Unknown 02/26/2025 8:08 AM EDT 02/26/2025 12:10 PM EDT Rafael Licea MD LAB BLOOD ORDERABLES Final Resul t [facility] [address] [place] [address], * (ABNORMAL) Comprehensive metabolic panel (02/26/2025 8:08 AM EDT) Sodium 138 133 - 145 mmol/L LAB CHEMISTRY METHOD 02/26/2025 2:46 PM [facility] Potassium 4.1 3.5 - 5.5 mmol/L LAB CHEMISTRY METHOD 02/26/2025 2:46 PM T [facility] Comment:Hemolysis present Chloride 102 96 - 110 mmol/L LAB CHEMISTRY METHOD 02/26/2025 2:46 PM [facility] CO2 29 21 - 32 mmol/L LAB CHEMISTRY METHOD 02/26/2025 2:46 PM [facility] Anion Gap 7 3 - 11 LAB CHEMISTRY METHOD 02/26/2025 2:46 PM [facility] Glucose 70 70 - 100 mg/dL LAB CHEMISTRY METHOD 02/26/2025 2:46 PM [facility] BUN 23 5 - 25 mg/dL LAB CHEMISTRY METHOD 02/26/2025 2:46 PM [facility] Creatinine 0.89 0.70 - 1.30 mg/dL LAB CHEMISTRY METHOD 02/26/2025 2:46 PM [facility] eGFR 92 >=60 mL/min/1. 73m2 LAB CHEMISTRY METHOD 02/26/2025 2:46 PM [facility] Comment:Calculation based on the Chronic Kidney Disease Epidemiology Collaboration (CKD-EPI) equation refit without adjustment for race. BUN/Creatinine Ratio 25.8 LAB CHEMISTRY METHOD 02/26/2025 2:46 PM EDT [facility] Calcium 9.0 8.5 - 10.5 mg/dL LAB CHEMISTRY METHOD 02/26/2025 2:46 PM [facility] AST (SGOT) 67(H) 10 - 42 unit/L LAB CHEMISTRY METHOD 02/26/2025 2:46 PM T [facility] Comment:Hemolysis present ALT (SGPT) 114(H) 10 - 60 unit/L LAB CHEMISTRY METHOD 02/26/2025 2:46 PM T [facility] Alkaline Phosphatase 205(H) 42 - 121 unit/L LAB CHEMISTRY METHOD 02/26/2025 2:46 PM [facility] Total Protein 6.5 6.0 - 8.0 g/dL LAB CHEMISTRY METHOD 02/26/2025 2:46 PM T [facility] Albumin 3.3 3.2 - 5.0 g/dL LAB CHEMISTRY METHOD 02/26/2025 2:46 PM [facility] Total Bilirubin 0.4 0.0 - 1.4 mg/dL LAB CHEMISTRY METHOD 02/26/2025 2:46 PM [facility] Blood Venous blood specimen / Unknown Venipuncture / Unknown 02/26/2025 8:08 AM EDT 02/26/2025 12:10 PM EDT us Rafael Licea MD LAB BLOOD ORDERABLES Final Resul t [facility] [address] [place] [address], * (ABNORMAL) Complete blood count (02/26/2025 8:08 AM EDT) WBC 9.7 4.8 - 10.8 K/mcL LAB HEMETOLOGY METHOD 02/26/2025 1:31 PM [facility] RBC 4.60 4.50 - 5.50 M/mcL LAB HEMETOLOGY METHOD 02/26/2025 1:31 PM [facility] Hemoglobin 13.9 13.5 - 17.5 g/dL LAB HEMETOLOGY METHOD 02/26/2025 1:31 PM [facility] Hematocrit 43.7 42.0 - 54.0 % LAB HEMETOLOGY METHOD 02/26/2025 1:31 PM [facility] MCV 95.8 79.0 - 98.0 FL LAB HEMETOLOGY METHOD 02/26/2025 1:31 PM [facility] MCH 30.5 27.0 - 32.0 pcg LAB HEMETOLOGY METHOD 02/26/2025 1:31 PM [facility] MCHC 31.8(L) 32.0 - 37.0 g/dL LAB HEMETOLOGY METHOD 02/26/2025 1:31 PM [facility] RDW 15.2(H) 11.0 - 15.0 % LAB HEMETOLOGY METHOD 02/26/2025 1:31 PM [facility] Platelets 180 130 - 400 K/mcL LAB HEMETOLOGY METHOD 02/26/2025 1:31 PM [facility] MPV 9.7 7.0 - 11.0 FL LAB HEMETOLOGY METHOD 02/26/2025 1:31 PM [facility] NRBC 0.0 <1.0 % LAB HEMETOLOGY METHOD 02/26/2025 1:31 PM [facility] NRBC Absolute 0.00 <0.10 K/mcL LAB HEMETOLOGY METHOD 02/26/2025 1:31 PM [facility] Blood Venous blood specimen / Unknown Venipuncture / Unknown 02/26/2025 8:08 AM EDT 02/26/2025 12:10 PM EDT us Rafael Licea MD LAB BLOOD ORDERABLES Final Resul t [facility] [address] [place] [address], documented in this encounter Visit Diagnoses Diagnosis Essential (primary) hypertension Unspecified essential hypertension Gout, unspecified documented in this encounter Care Teams Carrot Buncher Relationship Specialty Start Date End Date Annette Kan MD [address] [place] [address] [place] [address] PCP - General Internal Medicine 07/20/24 documented as of this encounter
== END 2025-04-18 12:08 | disposition home or self-care (01) ==
LOC: HO.10HDLNP 12:07
PROVIDERS: Visit Provider Internal Medicine
DX: R30.0 Dysuria (principal); N30.01 Acute cystitis with hematuria
CPT/HCPCS: 87086; 87088; 87186

== ENCOUNTER 2025-05-08 09:45 | Outpatient (AMB) | payer BC, SELFPAY ==
--- NOTE | 2025-05-08 10:37 | A.OFFVIS_ITS ---
Intake Visit Reasons: PSP Allergies No Known Allergies (No Known Allergies*) Allergy (Verified 04/10/25 10:18) Medication List - Last Reconciled 05/08/25 by Gómez Saldana MD acetaminophen 650 mg PO Q6H PRN allopurinol 300 mg PO DAILY bisacodyl 10 mg ND DAILY PRN carbidopa-levodopa 25-100 mg (Sinemet) 1 tab PO TID cefuroxime axetil 250 mg PO Q12H fluticasone propionate 50 mcg/actuation 1 spray intranasal DAILY lisinopril-hydrochlorothiazide 20-12.5 mg 1 tab PO DAILY metoprolol succinate ER (Toprol XL) 50 mg (1/2 x 100 mg) PO DAILY rosuvastatin (Crestor) 40 mg PO DAILY sertraline 100 mg PO DAILY HPI Comments Details: This is a 69-year-old man who was last seen by me more than 2 years ago and was being followed for PSP. He has not been able to walk independently for over a year. He was having multiple falls. He needs 1 assist to transfer from bed to wheelchair or to the toilet. He has a full-time wheelchair at home. He has full-time caregivers at home. His speech has become more dysarthric little harder to understand. He occasionally chokes on food because he tries to eat very quickly. Subjectively he says he is doing fine. He had a recent admission with a UTI with altered mental status. He is now returning to baseline. He was getting some physical therapy but was too tired and so that has been stopped. His last MRI was consistent with PSP. He has had progressive balance problems speech impairment and frequent falls starting back in 2019 -2020. There is mild impairment of short-term memory. He had minor tremor in the right hand at 1 point. He was given a trial of Sinemet for a period of time and then it was stopped. He has no bladder control problems. He has sleep apnea. [facility] Medical History CVA (cerebral vascular accident) Diverticulosis Benign colon polyp Rosacea Gout Hyperuricemia High cholesterol Hyperlipemia HTN (hypertension) Surgical History Hx of colonoscopy H/O cardiac catheterization History of tonsillectomy History of surgery on arm H/O umbilical hernia repair Family History Father Liver cancer Father Lung cancer Mother Breast cancer Social History Household Members: Spouse and Caregiver Housing: House Are you a primary caregivers homecare to a significant other at home: No Do you presently have visiting nurse or other home services: No Alcohol intake: current Alcohol intake frequency: a few times a week Alcohol type: hard liquor Patient Tobacco Use Status: Never used Tobacco service: No Review of Systems Const Details: Sleep:? Difficulty getting to sleep?denies.? Difficulty maintaining sleep?admits .? Urge to move legs?denies.? Teeth grinding?denies.? Shouting or Kicking during sleep?denies.? Abnormal behavior during sleep?denies.? Excessive sleep?denies.? Snoring?admits.? Daytime sleepiness?denies.? ?? General/Constitutional:? Change in appetite?denies.? Chills?denies.? Fatigue?denies.? Fever?denies .? Weight gain?admits.? Weight loss?denies.? ?? Ophthalmologic:? Blurred vision?denies.? Diminished visual acuity?denies.? ?? ENT:? Stuffiness?denies.? Decreased hearing?denies.? Dry mouth?denies.? Ear pain?denies.? Nosebleed?denies.? Ringing in the ears?admits.? Sinus pain?denies .? Sore throat?denies.? Swollen glands?denies.? ?? Endocrine:? Cold intolerance?denies.? Excessive thirst?denies.? Frequent urination? denies.? Heat intolerance?denies.? ?? Respiratory:? Shortness of breath?admits.? Chest pain?denies.? Cough?denies.? ?? Breast:? Breast lump?denies.? Nipple discharge?denies.? ?? Cardiovascular:? Chest pain at rest?denies.? Chest pain with exertion?denies.? Claudication?denies.? Dizziness?denies.? Fluid accumulation in the legs?denies.? Irregular heartbeat?denies.? Palpitations?denies.? ?? Gastrointestinal:? Abdominal pain?denies.? Constipation?denies.? Diarrhea?denies.? Difficulty swallowing?denies.? Heartburn?denies.? Nausea?denies.? Rectal bleeding?denies.? ?? Hematology:? Easy bruising?denies.? Prolonged bleeding?denies.? ?? Genitourinary:? Frequent urination?denies.? Urgency?denies.? Incontinence?denies.? Erectile Dysfunction?admits.? ?? Musculoskeletal:? Neck pain?denies.? Back pain?denies.? Muscle aches?denies.? Painful joints?denies.? Sciatica?denies.? Weakness?denies.? ?? Podiatric:? Difficulty walking?yes.? Foot numbness?denies.? ?? Neurologic:? Difficulty swallowing?yes.? Balance difficulty?yes.? Coordination?normal .? Difficulty speaking?hoarse and dysarthric.? Dizziness?yes Fainting?denies.? Gait abnormality?yes.? Headache?denies.? Loss of strength?denies.? Loss of use of extremity?denies.? Low back pain?denies.? Memory loss?admits.? Seizures? denies.? Tics?denies.? Tingling/Numbness?denies.? Transient loss of vision? denies.? Tremor?denies.? ?? Psychiatric:? Anxiety?denies.? Auditory/visual hallucinations?denies.? Delusions?denies .? Depressed mood?admits.? Stressors?denies.? Substance abuse?denies.? Suicidal thoughts?denies.? ?? Physical Exam Neuro Other: Neurological: ? Abnormal neurological findings:?loss of saccadic eye movements horizontally, and absent vertical eye movements. Slow , hoarse dysarthric speech. gait as below. Decreased facial expression. No tremor. Mild increase in tone.? Mental Status:?alert and oriented X 3,?Normal attention, orientation, memory and affect.? Cranial Nerves:?Pupils are equal, round and reactive to light. Fundoscopy shows normal disc bilaterally. External occular muscles are as above. Visual espino are full, no ptosis. Face is symmetrical, no facial weakness or droop. Facial sensations are normal. Tongue protrudes in midline. Palate elevates symmetrically. Shoulder shrugging is normal. Decreased facial expression.? Motor Examination:?Normal muscle tone, bulk and strength,?No atrophy or fasciculations,?No drift of the extended upper extremities,?weakness of left shoulder abduction probably related to rotator cuff tear from his falls. Deep tendon reflexes are 2+?,?Plantars are flexor?.? Straight Leg Raising:?90 degrees.? Sensory Exam:?Normal light touch, temperature, pinprick, vibration and joint-position sensations?,?Rhomberg sign is absent.? Coordination:?no ataxia,?no titubation,?[id number], [id number]-[id number] test and rapid alternating movements were normal.? Gait Exam:? Wheelchair only. Needs assist to get up from the wheelchair. Unable to walk. ? Cerebellar Signs:?[id number] and rbwp-[id number] is normal,?no dysdiadochokinesia?.? Extrapyramidal System:?No tremor, rigidity with reduced facial expressions,?No bradykinesia, no bradyphrenia. ? Speech:?hoarse and?dysarthric..? Mini Mental Status Exam: ? Level of Consciousness:?Alert.? Orientation:?Knows correct year, month, date, day and season,?Knows correct city, county and state. Knows correct location and floor.? Registration:?Able to register 3 objects.? Attention:?Serial 7's performed accurately.? Recall:?Able to recall 3 out of 3 objects.? Language:?Normal spontaneous speech, fluency, repetition,naming, comprehension, reading and writing.? Total Score ?30/30.? General Examination: ? GENERAL APPEARANCE:?normal,?in no acute distress.? HEAD:?normocephalic,?atraumatic.? EYES:?sclera non-icteric,?conjunctiva clear.? EARS:?auditory canal clear,?tympanic membrane intact, clear.? NOSE:?no lesions.? ORAL CAVITY:?gums normal,?mucosa moist,?no lesions.? THROAT:?clear.? NECK/THYROID:?no cervical lymphadenopathy,?thyroid normal,?neck supple, full range of motion,?no carotid bruit.? SKIN:?no rashes,?no significant birthmarks.? HEART:?S1, S2 normal,?no murmurs.? LUNGS:?clear anteriorly and posteriorly.? CHEST:?no gross rib deformity,?clear to auscultation.? BACK:?normal exam of spine.? EXTREMITIES:?no edema.? PERIPHERAL PULSES:?normal.? PSYCH:?alert, oriented,?cognitive function intact,?cooperative with exam.? Assessment & Plan Assessment & Plan (1) Progressive supranuclear palsy: Comment: 05/07/20 EEG- WNL 07/22/21 MRI brain: Midbrain volume loss and morphology most suggestive of the clinically reported history of progressive supranuclear palsy. There is redemonstrated chronic appearing encephalomalacia and gliosis within the high right frontal lobe. Code(s): G23.1 - Progressive supranuclear ophthalmoplegia [Sal] Category: Medical (2) VAL (obstructive sleep apnea): Code(s): G47.33 - Obstructive sleep apnea (adult) (pediatric) Category: Medical (3) TBI (traumatic brain injury): Comment: 04/24/20 CT: right high frontal cortical and subcortical encephalomalacia probably post traumatic rather than a chronic stroke. Carotid doppler negative. Code(s): S06.9XAA - Unspecified intracranial injury with loss of consciousness status unknown, initial encounter Category: Medical Plan There is no specific treatment for this condition as I have explained to the family. The focus at this point is to prevent any injuries from his multiple falls. He should not be permitted to walk at all without 1 assist or 2 assists. He will need assistance with transferring to bed and toilet. Small portions chopped up food so that he does not choke. Watch for UTI and other infections. Continue current medications Coding Level of Care Code New Pt Level 5 (07636) Diagnoses Progressive supranuclear palsy G23.1 VAL (obstructive sleep apnea) G47.33 TBI (traumatic brain injury) S06.9XAA
== END 2025-05-08 12:54 | disposition home or self-care (01) ==
LOC: HO.HSM 09:45
PROVIDERS: PCP Internal Medicine; Visit Provider Psychiatry & Neurology Neurology
DX: G23.1 Progressive supranuclear ophthalmoplegia [Steele-Richardson-Olszewski] (principal); G47.33 Obstructive sleep apnea (adult) (pediatric); S06.9XAA Unspecified intracranial injury with loss of consciousness status unknown, initial encounter
CPT/HCPCS: 99204

== ENCOUNTER 2025-05-14 11:12 | Outpatient (REF) | payer BC, SELFPAY ==
--- OUTSIDE RECORDS SUMMARY | 2025-05-14 14:20 | XMS_ITS | Clinical Summary ---
Author Organization [address] [facility] Address [address] [place] [address] Phone Care Team Providers Care [employer] Manager Name Role Phone Annette Kan MD Primary Care Provider [phone] Encounters Date Type Department Care Team Description 03/09/2025 Lab Requisition [facility] [address] [place] [phone] Rafael Licea MD Acute cystitis without hematuria; Benign neoplasm of colon, unspecified; Hyperuricemia without signs of inflammatory arthritis and tophaceous disease; Hyperlipidemia, unspecified 03/03/2025 Lab Requisition [facility] [address] [place] [phone] Rafael Licea MD Acute cystitis without hematuria; Benign neoplasm of colon, unspecified; Hyperuricemia without signs of inflammatory arthritis and tophaceous disease; Hyperlipidemia, unspecified 02/26/2025 Lab Requisition [facility] [address] [place] [phone] Rafael Licea MD Essential (primary) hypertension; Gout, [...] mg/dL LAB CHEMISTRY METHOD 03/05/2025 12:51 PM [facility] Triglycerides 160(H) 0 - 150 mg/dL LAB CHEMISTRY METHOD 03/05/2025 12:51 PM [facility] Comment:Results verified by repeat testing HDL 41 >=40 mg/dL LAB CHEMISTRY METHOD 03/05/2025 12:51 PM [facility] LDL Calculated 93 0 - 100 mg/dL LAB CHEMISTRY METHOD 03/05/2025 12:51 PM [facility] Comment:Estimated LDL Calcul ated using equation: Total cholesterol - HDL cholesterol - (Triglycerides/5) VLDL Cholesterol Ke 32 mg/dL LAB CHEMISTRY METHOD 03/05/2025 12:51 PM [facility] Non HDL Chol. (LDL+VLDL) 125 <145 mg/dL LAB CHEMISTRY METHOD 03/05/2025 12:51 PM [facility] Chol/HDL Ratio 4.0 0.0 - 4.4 LAB CHEMISTRY METHOD 03/05/2025 12:51 PM [facility] Blood Venous blood specimen / Unknown Venipuncture / Unknown 03/05/2025 9:56 AM EDT 03/05/2025 11:00 AM EDT us Rafael Licea MD LAB BLOOD ORDERABLES Final Resul t [facility] [address] [place] [address], [place] [phone] * (ABNORMAL) Complete blood count (03/05/2025 9:56 AM EDT) Only the most recent of2 resultswithin the time period is included. [facility] WBC 5.3 4.8 - 10.8 K/mcL LAB HEMETOLOGY METHOD 03/05/2025 2:[address] [facility] RBC 4.60 4.50 - 5.50 M/mcL LAB HEMETOLOGY METHOD 03/05/2025 2:[address] [facility] Hemoglobin 13.7 13.5 - 17.5 g/dL LAB HEMETOLOGY METHOD 03/05/2025 2:[address] [facility] Hematocrit 42.4 42.0 - 54.0 % LAB HEMETOLOGY METHOD 03/05/2025 2:[address] [facility] MCV 92.8 79.0 - 98.0 FL LAB HEMETOLOGY METHOD 03/05/2025 2:[address] [facility] MCH 30.0 27.0 - 32.0 pcg LAB HEMETOLOGY METHOD 03/05/2025 2:[address] [facility] MCHC 32.3 32.0 - 37.0 g/dL LAB HEMETOLOGY METHOD 03/05/2025 2:[address] [facility] RDW 15.6(H) 11.0 - 15.0 % LAB HEMETOLOGY METHOD 03/05/2025 2:[address] [facility] Platelets 171 130 - 400 K/mcL LAB HEMETOLOGY METHOD 03/05/2025 2:[address] [facility] MPV 9.9 7.0 - 11.0 FL LAB HEMETOLOGY METHOD 03/05/2025 2:[address] [facility] NRBC 0.0 <1.0 % LAB HEMETOLOGY METHOD 03/05/2025 2:[address] [facility] NRBC Absolute 0.00 <0.10 K/mcL LAB HEMETOLOGY METHOD 03/05/2025 2:[address] [facility] Blood Venous blood specimen / Unknown Venipuncture / Unknown 03/05/2025 9:56 AM EDT 03/05/2025 11:00 AM EDT us Rafael Licea MD LAB BLOOD ORDERABLES Final Resul t [facility] [address] [place] [address], * (ABNORMAL) Basic metabolic panel (03/05/2025 9:56 AM EDT) Sodium 138 133 - 145 mmol/L LAB CHEMISTRY METHOD 03/05/2025 12:31 PM [facility] Potassium 3.9 3.5 - 5.5 mmol/L LAB CHEMISTRY METHOD 03/05/2025 12:31 PM [facility] Chloride 105 96 - 110 mmol/L LAB CHEMISTRY METHOD 03/05/2025 12:31 PM [facility] CO2 28 21 - 32 mmol/L LAB CHEMISTRY METHOD 03/05/2025 12:31 PM [facility] Anion Gap 5 3 - 11 LAB CHEMISTRY METHOD 03/05/2025 12:31 PM [facility] Glucose 109(H) 70 - 100 mg/dL LAB CHEMISTRY METHOD 03/05/2025 12:31 PM [facility] BUN 14 5 - 25 mg/dL LAB CHEMISTRY METHOD 03/05/2025 12:[address] [facility] Creatinine 0.86 0.70 - 1.30 mg/dL LAB CHEMISTRY METHOD 03/05/2025 12:[address] [facility] eGFR 93 >=60 mL/min/1. 73m2 LAB CHEMISTRY METHOD 03/05/2025 12:[address] [facility] Comment:Calculation based on the Chronic Kidney Disease Epidemiology Collaboration (CKD-EPI) equation refit without adjustment for race. BUN/Creatinine Ratio 16.3 LAB CHEMISTRY METHOD 03/05/2025 12:[address] [facility] Calcium 9.3 8.5 - 10.5 mg/dL LAB CHEMISTRY METHOD 03/05/2025 12:[address] [facility] Blood Venous blood specimen / Unknown Venipuncture / Unknown 03/05/2025 9:56 AM EDT 03/05/2025 11:00 AM EDT us Rafael Licea MD LAB BLOOD ORDERABLES Final Resul t Performing Organization Address City/[facility]/ZIP Co de Phone Number [facility] [address] [place] [address], [place] [phone] * (ABNORMAL) Uric acid (02/26/2025 8:08 AM EDT) Uric Acid 3.4(L) 3.7 - 9.2 mg/dL LAB CHEMISTRY METHOD 02/26/2025 2:[address] [facility] Blood Venous blood specimen / Unknown Venipuncture / Unknown 02/26/2025 8:08 AM EDT 02/26/2025 12:10 PM EDT us Rafael Licea MD LAB BLOOD ORDERABLES Final Resul t [facility] [address] [place] [address], [place] [phone] * (ABNORMAL) Comprehensive metabolic panel (02/26/2025 8:08 AM EDT) Sodium 138 133 - 145 mmol/L LAB CHEMISTRY METHOD 02/26/2025 2:46 PM [facility] Potassium 4.1 3.5 - 5.5 mmol/L LAB CHEMISTRY METHOD 02/26/2025 2:46 PM [facility] Comment:Hemolysis present Chloride 102 96 - 110 mmol/L LAB CHEMISTRY METHOD 02/26/2025 2:46 PM [facility] CO2 29 21 - 32 mmol/L LAB CHEMISTRY METHOD 02/26/2025 2:46 PM [facility] Anion Gap 7 3 - 11 LAB CHEMISTRY METHOD 02/26/2025 2:46 PM [facility] Glucose 70 70 - 100 mg/dL LAB CHEMISTRY METHOD 02/26/2025 2:46 PM [facility] BUN 23 5 - 25 mg/dL LAB CHEMISTRY METHOD 02/26/2025 2:46 PM [facility] Creatinine 0.89 0.70 - 1.30 mg/dL LAB CHEMISTRY METHOD 02/26/2025 2:46 PM [facility] eGFR 92 >=60 mL/min/1. 73m2 LAB CHEMISTRY METHOD 02/26/2025 2:46 PM [facility] Comment:Calculation based on the Chronic Kidney Disease Epidemiology Collaboration (CKD-EPI) equation refit without adjustment for race. BUN/Creatinine Ratio 25.8 LAB CHEMISTRY METHOD 02/26/2025 2:46 PM [facility] Calcium 9.0 8.5 - 10.5 mg/dL LAB CHEMISTRY METHOD 02/26/2025 2:46 PM [facility] AST (SGOT) 67(H) 10 - 42 unit/L LAB CHEMISTRY METHOD 02/26/2025 2:[address] [facility] Comment:Hemolysis present ALT (SGPT) 114(H) 10 - 60 unit/L LAB CHEMISTRY METHOD 02/26/2025 2:[address] [facility] Alkaline Phosphatase 205(H) 42 - 121 unit/L LAB CHEMISTRY METHOD 02/26/2025 2:[address] [facility] Total Protein 6.5 6.0 - 8.0 g/dL LAB CHEMISTRY METHOD 02/26/2025 2:[address] [facility] Albumin 3.3 3.2 - 5.0 g/dL LAB CHEMISTRY METHOD 02/26/2025 2:[address] [facility] Total Bilirubin 0.4 0.0 - 1.4 mg/dL LAB CHEMISTRY METHOD 02/26/2025 2:[address] [facility] Blood Venous blood specimen / Unknown Venipuncture / Unknown 02/26/2025 8:08 AM EDT 02/26/2025 12:10 PM EDT us Rafael Licea MD LAB BLOOD ORDERABLES Final Resul t [facility] [address] [place] [address], [place] [phone] from Last 3 Months Insurance MEDICARE [facility] Care Teams [employer] Manager Relationship Specialty Start Date End Date Annette Kan MD [address] [place] [address] [place] [address] PCP - General Internal Medicine 07/20/24
--- OUTSIDE RECORDS SUMMARY | 2025-05-14 14:20 | XMS_ITS | Encounter Summary ---
Author Organization [employer] Address [address] [place] [address] Care Team Providers Care Director Marketing Name Role Phone Annette Kan MD Primary Care Provider [phone] Encounter Details Date Type Department Care Team (Late st Contact Info) Description 03/03/[address] [facility] [address] [facility] [place] [address] Rafael Licea MD [address] [place], [place] [id number] Acute cystitis without hematuria; Benign neoplasm of [...] LAB CHEMISTRY METHOD 03/05/2025 12:51 PM EDT [facility] Triglycerides 160(H) 0 - 150 mg/dL LAB CHEMISTRY METHOD 03/05/2025 12:51 PM EDT [facility] Comment:Results verified by repeat testing HDL 41 >=40 mg/dL LAB CHEMISTRY METHOD 03/05/2025 12:51 PM EDT [facility] LDL Calculated 93 0 - 100 mg/dL LAB CHEMISTRY METHOD 03/05/2025 12:51 PM T [facility] Comment:Estimated LDL Calcul ated using equation: Total cholesterol - HDL cholesterol - (Triglycerides/5) VLDL Cholesterol Ke 32 mg/dL LAB CHEMISTRY METHOD 03/05/2025 12:51 PM EDT [facility] Non HDL Chol. (LDL+VLDL) 125 <145 mg/dL LAB CHEMISTRY METHOD 03/05/2025 12:51 PM EDT [facility] Chol/HDL Ratio 4.0 0.0 - 4.4 LAB CHEMISTRY METHOD 03/05/2025 12:51 PM T [facility] Blood Venous blood specimen / Unknown Venipuncture / Unknown 03/05/2025 9:56 AM EDT 03/05/2025 11:00 AM EDT us Rafael Licea MD LAB BLOOD ORDERABLES Final Resul t [facility] [address] [place] [address], * (ABNORMAL) Basic metabolic panel (03/05/2025 9:56 AM EDT) Sodium 138 133 - 145 mmol/L LAB CHEMISTRY METHOD 03/05/2025 12:31 PM [facility] Potassium 3.9 3.5 - 5.5 mmol/L LAB CHEMISTRY METHOD 03/05/2025 12:31 PM [facility] Chloride 105 96 - 110 mmol/L LAB CHEMISTRY METHOD 03/05/2025 12:31 PM [facility] CO2 28 21 - 32 mmol/L LAB CHEMISTRY METHOD 03/05/2025 12:31 PM [facility] Anion Gap 5 3 - 11 LAB CHEMISTRY METHOD 03/05/2025 12:31 PM [facility] Glucose 109(H) 70 - 100 mg/dL LAB CHEMISTRY METHOD 03/05/2025 12:31 PM [facility] BUN 14 5 - 25 mg/dL LAB CHEMISTRY METHOD 03/05/2025 12:31 PM [facility] Creatinine 0.86 0.70 - 1.30 mg/dL LAB CHEMISTRY METHOD 03/05/2025 12:31 PM [facility] eGFR 93 >=60 mL/min/1. 73m2 LAB CHEMISTRY METHOD 03/05/2025 12:31 PM [facility] Comment:Calculation based on the Chronic Kidney Disease Epidemiology Collaboration (CKD-EPI) equation refit without adjustment for race. BUN/Creatinine Ratio 16.3 LAB CHEMISTRY METHOD 03/05/2025 12:31 PM [facility] Calcium 9.3 8.5 - 10.5 mg/dL LAB CHEMISTRY METHOD 03/05/2025 12:31 PM [facility] Blood Venous blood specimen / Unknown Venipuncture / Unknown 03/05/2025 9:56 AM EDT 03/05/2025 11:00 AM EDT us Rafael Licea MD LAB BLOOD ORDERABLES Final Resul t [facility] [address] [place] [address], * (ABNORMAL) Complete blood count (03/05/2025 9:56 AM EDT) [facility] WBC 5.3 4.8 - 10.8 K/mcL LAB HEMETOLOGY METHOD 03/05/2025 2:08 PM EDT [facility] RBC 4.60 4.50 - 5.50 M/mcL LAB HEMETOLOGY METHOD 03/05/2025 2:08 PM EDT [facility] Hemoglobin 13.7 13.5 - 17.5 g/dL LAB HEMETOLOGY METHOD 03/05/2025 2:[facility] Hematocrit 42.4 42.0 - 54.0 % LAB HEMETOLOGY METHOD 03/05/2025 2:08 PM [facility] MCV 92.8 79.0 - 98.0 FL LAB HEMETOLOGY METHOD 03/05/2025 2:08 PM [facility] MCH 30.0 27.0 - 32.0 pcg LAB HEMETOLOGY METHOD 03/05/2025 2:08 PM [facility] MCHC 32.3 32.0 - 37.0 g/dL LAB HEMETOLOGY METHOD 03/05/2025 2:08 PM [facility] RDW 15.6(H) 11.0 - 15.0 % LAB HEMETOLOGY METHOD 03/05/2025 2:08 PM EDT [facility] Platelets 171 130 - 400 K/mcL LAB HEMETOLOGY METHOD 03/05/2025 2:08 PM EDT [facility] MPV 9.9 7.0 - 11.0 FL LAB HEMETOLOGY METHOD 03/05/2025 2:08 PM EDT [facility] NRBC 0.0 <1.0 % LAB HEMETOLOGY METHOD 03/05/2025 2:08 PM EDT [facility] NRBC Absolute 0.00 <0.10 K/mcL LAB HEMETOLOGY METHOD 03/05/2025 2:08 PM EDT [facility] Blood Venous blood specimen / Unknown Venipuncture / Unknown 03/05/2025 9:56 AM EDT 03/05/2025 11:00 AM EDT us Rafael Licea MD LAB BLOOD ORDERABLES Final Resul t [facility] [address] [place] [address], documented in this encounter Visit Diagnoses Diagnosis Acute cystitis without hematuria Benign neoplasm of colon, 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
--- OUTSIDE RECORDS SUMMARY | 2025-05-14 14:20 | XMS_ITS | Encounter Summary ---
Author Organization [employer] [facility] Address [address] [place] [address] Care Team Providers Care International Editorial Producer Name Role Phone Annette Kan MD Primary Care Provider [phone] Encounter Details Date Type Department Care Team (Latest Contact Info) Description 07/20/2024 Lab Requisition [facility] Lab [address] [facility] [place] [address] Annette Kan MD [address] [address] [place] [address] Benign prostatic hyperplasia with lower urinary tract symptoms; Other psoriasis; Progressive supranuclear ophthalmoplegia (dmrifs-Whhjsrveox-ffgb ewski) (CMS/[facility] V24, CMS/HCC V28); Pure hypercholesterolemia, unspecified Social [...] tract symptoms Other psoriasis Progressive supranuclear ophthalmoplegia (zdulgg-Vevenwutpu-amz zewski) (CMS/[facility]) Pure hypercholesterolemia, unspecified LIPID PANEL WITH REFLEX TO DIRECT LDL Routine 07/20/2024 9:40 AM EST Benign prostatic hyperplasia with lower urinary tract symptoms Other psoriasis Progressive supranuclear ophthalmoplegia (lwibgl-Szrdftmsgv-iqm zewski) (CMS/[facility]) Pure hypercholesterolemia, unspecified CBC WITH AUTO DIFFERENTIAL Routine 07/20/2024 9:40 AM EST Benign prostatic hyperplasia with lower urinary tract symptoms Other psoriasis Progressive supranuclear ophthalmoplegia (zvweon-Xuuehxzlbn-xgz zewski) (CMS/HCC) Pure hypercholesterolemia, unspecified CBC AND DIFFERENTIAL Routine 07/20/2024 9:40 AM EST Benign prostatic hyperplasia with lower urinary tract symptoms Other psoriasis Progressive supranuclear ophthalmoplegia (mscjwe-Dribvedlus-qpd zewski) (CMS/HCC) Pure hypercholesterolemia, unspecified COMPREHENSIVE METABOLIC PANEL Routine 07/20/2024 9:40 AM EST Benign prostatic hyperplasia with lower urinary tract symptoms Other psoriasis Progressive supranuclear ophthalmoplegia (pzhtwv-Vfdxzcerxt-qfj zewski) (CMS/HCC) Pure hypercholesterolemia, unspecified documented in this encounter Results * CBC auto differential (07/20/2024 9:40 AM EST) WBC 6.7 4.8 - 10.8 K/mcL LAB HEMETOLOGY METHOD 07/20/2024 2:35 PM [facility] RBC 4.80 4.50 - 5.50 M/mcL LAB HEMETOLOGY METHOD 07/20/2024 2:35 PM [facility] Hemoglobin 15.4 13.5 - 17.5 g/dL LAB HEMETOLOGY METHOD 07/20/2024 2:35 PM [facility] Hematocrit 46.5 42.0 - 54.0 % LAB HEMETOLOGY METHOD 07/20/2024 2:35 PM [facility] MCV 96.3 79.0 - 98.0 FL LAB HEMETOLOGY METHOD 07/20/2024 2:35 PM [facility] MCH 31.9 27.0 - 32.0 pcg LAB HEMETOLOGY METHOD 07/20/2024 2:35 PM [facility] MCHC 33.1 32.0 - 37.0 g/dL LAB HEMETOLOGY METHOD 07/20/2024 2:35 PM [facility] RDW 13.2 11.0 - 15.0 % LAB HEMETOLOGY METHOD 07/20/2024 2:35 PM [facility] Platelets 181 130 - 400 K/mcL LAB HEMETOLOGY METHOD 07/20/2024 2:35 PM [facility] MPV 10.7 7.0 - 11.0 FL LAB HEMETOLOGY METHOD 07/20/2024 2:35 PM [facility] NRBC 0.0 <1.0 % LAB HEMETOLOGY METHOD 07/20/2024 2:35 PM [facility] NRBC Absolute 0.00 <0.10 K/mcL LAB HEMETOLOGY METHOD 07/20/2024 2:35 PM [facility] Neutrophils Relative 65.9 % LAB HEMETOLOGY METHOD 07/20/2024 2:35 PM [facility] Lymphocytes Relative 21.2 % LAB HEMETOLOGY METHOD 07/20/2024 2:35 PM [facility] Monocytes Relative 9.5 % LAB HEMETOLOGY METHOD 07/20/2024 2:35 PM [facility] Eosinophils Relative 2.3 % LAB HEMETOLOGY METHOD 07/20/2024 2:35 PM [facility] Basophils Relative 0.8 % LAB HEMETOLOGY METHOD 07/20/2024 2:35 PM [facility] Immature Granulocytes Relative 0.3 % LAB HEMETOLOGY METHOD 07/20/2024 2:35 PM [facility] Neutrophils Absolute 4.40 1.50 - 7.00 K/mcL LAB HEMETOLOGY METHOD 07/20/2024 2:35 PM [facility] Lymphocytes Absolute 1.41 1.00 - 5.00 K/mcL LAB HEMETOLOGY METHOD 07/20/2024 2:35 PM [facility] Monocytes Absolute 0.63 0.20 - 1.00 K/mcL LAB HEMETOLOGY METHOD 07/20/2024 2:35 PM EST [facility] Eosinophils Absolute 0.15 0.00 - 0.50 K/mcL LAB HEMETOLOGY METHOD 07/20/2024 2:35 PM EST [facility] Basophils Absolute 0.05 0.00 - 0.20 K/mcL LAB HEMETOLOGY METHOD 07/20/2024 2:35 PM EST [facility] Immature Granulocytes Absolute 0.02 0.00 - 0.03 K/mcL LAB HEMETOLOGY METHOD 07/20/2024 2:35 PM EST [facility] Blood Venous blood specimen / Unknown 07/20/2024 9:40 AM EST 07/20/2024 2:14 PM EST us Annette Kan MD LAB BLOOD ORDERABLES Final Re sult Performing Organization Address [facility] de Phone Number [facility] [address] [place] [address], * Prostate specific antigen screen (07/20/2024 9:40 AM EST) PSA 4.00 0.00 - 4.00 ng/mL LAB CHEMISTRY METHOD 07/20/2024 3:03 PM EST [facility] Blood Venous blood specimen / Unknown 07/20/2024 9:40 AM EST 07/20/2024 2:14 PM EST Narrative [facility] - 07/20/2024 3:03 PM EST The Siemens Advia Centaur Chemiluminescent Immunoassay is used. Results obtained with different assay methods or kits cannot be used interchangeably. Results cannot be interpreted as absolute evidence of the presence or absence of malignant disease. us Annette Kan MD LAB BLOOD ORDERABLES Final Re sult Performing Organization Address City/[facility]/ZIP Co de Phone Number [facility] [address] [place] [address], [place] [phone] * (ABNORMAL) Lipid panel with reflex to direct LDL (07/20/2024 9:40 AM EST) Cholesterol 182 0 - 200 mg/dL LAB CHEMISTRY METHOD 07/20/2024 2:58 PM EST [facility] Triglycerides 83 0 - 150 mg/dL LAB CHEMISTRY METHOD 07/20/2024 2:58 PM EST [facility] HDL 57 >=40 mg/dL LAB CHEMISTRY METHOD 07/20/2024 2:58 PM [facility] LDL Calculated 108(H) 0 - 100 mg/dL LAB CHEMISTRY METHOD 07/20/2024 2:58 PM [facility] VLDL Cholesterol Ke 16.6 mg/dL LAB CHEMISTRY METHOD 07/20/2024 2:58 PM [facility] Non HDL Chol. (LDL+VLDL) 125 <145 mg/dL LAB CHEMISTRY METHOD 07/20/2024 2:58 PM EST [facility] Chol/HDL Ratio 3.2 0.0 - 4.4 LAB CHEMISTRY METHOD 07/20/2024 2:58 PM [facility] Blood Venous blood specimen / Unknown 07/20/2024 9:40 AM EST 07/20/2024 2:14 PM EST us Annette Kan MD LAB BLOOD ORDERABLES Final Re sult [facility] [address] [place] [address], [place] [phone] * Comprehensive metabolic panel (07/20/2024 9:40 AM EST) Pathologist [facility] Sodium 135 133 - 145 mmol/L LAB CHEMISTRY METHOD 07/20/2024 2:58 PM [facility] Potassium 4.0 3.5 - 5.5 mmol/L LAB CHEMISTRY METHOD 07/20/2024 2:58 PM [facility] Chloride 103 96 - 110 mmol/L LAB CHEMISTRY METHOD 07/20/2024 2:58 PM [facility] CO2 27 21 - 32 mmol/L LAB CHEMISTRY METHOD 07/20/2024 2:58 PM [facility] Anion Gap 5 3 - 11 LAB CHEMISTRY METHOD 07/20/2024 2:58 PM [facility] Glucose 88 70 - 100 mg/dL LAB CHEMISTRY METHOD 07/20/2024 2:58 PM [facility] BUN 20 5 - 25 mg/dL LAB CHEMISTRY METHOD 07/20/2024 2:58 PM [facility] Creatinine 0.93 0.70 - 1.30 mg/dL LAB CHEMISTRY METHOD 07/20/2024 2:58 PM [facility] eGFR 88 >=60 mL/min/1. 73m2 LAB CHEMISTRY METHOD 07/20/2024 2:58 PM [facility] Comment:Calculation based on the Chronic Kidney Disease Epidemiology Collaboration (CKD-EPI) equation refit without adjustment for race. BUN/Creatinine Ratio 21.5 LAB CHEMISTRY METHOD 07/20/2024 2:58 PM [facility] Calcium 9.7 8.5 - 10.5 mg/dL LAB CHEMISTRY METHOD 07/20/2024 2:58 PM [facility] AST (SGOT) 19 10 - 42 unit/L LAB CHEMISTRY METHOD 07/20/2024 2:58 PM [facility] ALT (SGPT) 39 10 - 60 unit/L LAB CHEMISTRY METHOD 07/20/2024 2:58 PM [facility] Alkaline Phosphatase 86 42 - 121 unit/L LAB CHEMISTRY METHOD 07/20/2024 2:58 PM [facility] Total Protein 7.5 6.0 - 8.0 g/dL LAB CHEMISTRY METHOD 07/20/2024 2:58 PM [facility] Albumin 4.1 3.2 - 5.0 g/dL LAB CHEMISTRY METHOD 07/20/2024 2:58 PM EST [facility] Total Bilirubin 0.6 0.0 - 1.4 mg/dL LAB CHEMISTRY METHOD 07/20/2024 2:58 PM EST [facility] Blood Venous blood specimen / Unknown 07/20/2024 9:40 AM EST 07/20/2024 2:14 PM EST us Annette Kan MD LAB BLOOD ORDERABLES Final Re sult [facility] [address] [place] [address], documented in this encounter Visit Diagnoses Diagnosis Benign prostatic hyperplasia with lower urinary tract symptoms Other psoriasis Progressive supranuclear ophthalmoplegia (orxwgj-Ggajsrzsio-nklczdoxg) (CMS/[facility] V24, CMS/[facility] V28) Pure hypercholesterolemia, unspecified documented in this encounter Care Teams International Editorial Producer Relationship Specialty Start Date End Date Annette Kan MD [address] [place] [address] [place] [address] PCP - General Internal Medicine 07/20/24 documented as of this encounter
--- OUTSIDE RECORDS SUMMARY | 2025-05-14 14:20 | XMS_ITS | Encounter Summary ---
Author Organization [employer] [facility] Address [address] [place] [address] Care Team Providers Care Sheet Fed Printer Name Role Phone Annette Kan MD Primary Care Provider Encounter Details Date Type Department Care Team (Late st Contact Info) Description 03/09/2025 Lab Requisition [facility] - Main Lab [address] [facility] [address] [place] [address] Rafael Licea MD [address] [place] [address] Acute cystitis without hematuria; Benign neoplasm of [...] unspecified documented in this encounter Care Teams Sheet Fed Printer Relationship Specialty Start Date End Date Annette Kan MD [address] [place] [address] [place] [id number] PCP - General Internal Medicine 07/20/24 documented as of this encounter
--- OUTSIDE RECORDS SUMMARY | 2025-05-14 14:21 | XMS_ITS | Encounter Summary ---
Author Organization [employer] [facility] Address [address] [place] [address] Care Team Providers Care Ophthalmic Pathologist Name Role Phone Annette Kan MD Primary Care Provider [phone] Encounter Details Date Type Department Care Team (Late st Contact Info) Description 02/26/2025 Lab Requisition [facility] - Main Lab [address] [facility] [place] [address] Rafael Licea MD [address] [place] [address] Essential (primary) hypertension; Gout, unspecified Social History [...] LAB CHEMISTRY METHOD 02/26/2025 2:46 PM EDT [facility] Blood Venous blood specimen / Unknown Venipuncture / Unknown 02/26/2025 8:08 AM EDT 02/26/2025 12:10 PM EDT Rafael Licea MD LAB BLOOD ORDERABLES Final Resul t [facility] [address] [place] [address], * (ABNORMAL) Comprehensive metabolic panel (02/26/2025 8:08 AM EDT) Sodium 138 133 - 145 mmol/L LAB CHEMISTRY METHOD 02/26/2025 2:46 PM [facility] Potassium 4.1 3.5 - 5.5 mmol/L LAB CHEMISTRY METHOD 02/26/2025 2:46 PM T [facility] Comment:Hemolysis present Chloride 102 96 [...] LAB CHEMISTRY METHOD 02/26/2025 2:46 PM EDT [facility] Calcium 9.0 8.5 - 10.5 mg/dL LAB CHEMISTRY METHOD 02/26/2025 2:46 PM [facility] AST (SGOT) 67(H) 10 - 42 unit/L LAB CHEMISTRY METHOD 02/26/2025 2:46 PM T [facility] Comment:Hemolysis present ALT (SGPT) 114(H) 10 - 60 unit/L LAB CHEMISTRY METHOD 02/26/2025 2:46 PM T [facility] Alkaline Phosphatase 205(H) 42 - 121 unit/L LAB CHEMISTRY METHOD 02/26/2025 2:46 PM [facility] Total Protein 6.5 6.0 - 8.0 g/dL LAB CHEMISTRY METHOD 02/26/2025 2:46 PM T [facility] Albumin 3.3 3.2 - 5.0 [...] Resul t [facility] [address] [place] [address], * (ABNORMAL) Complete blood count (02/26/2025 8:08 [...] LAB BLOOD ORDERABLES Final Resul t [facility] [address] [place] [address], documented in this encounter Visit Diagnoses Diagnosis Essential (primary) hypertension Unspecified essential hypertension Gout, unspecified documented in this encounter Care Teams Ophthalmic Pathologist Relationship Specialty Start Date End Date Annette Kan MD [address] [place] [address] [place] [address] PCP - General Internal Medicine 07/20/24 documented as of this encounter
== END 2025-05-14 11:13 | disposition home or self-care (01) ==
LOC: HO.10HDLNP 11:12
PROVIDERS: Visit Provider Internal Medicine
DX: N30.01 Acute cystitis with hematuria (principal); R30.0 Dysuria
CPT/HCPCS: 87086

== ENCOUNTER 2025-05-14 13:41 | Outpatient (REF) | payer BC, SELFPAY ==
--- NOTE | ~2025-05-14 | FL_ITS ---
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 TECHNIQUE: Modified barium swallow was performed in an lateral sitting position under fluoroscopy in presence of speech therapist. FINDINGS: Oral administration of thin barium there is trace laryngeal penetration and aspiration noted. On oral administration of puree and pudding there is normal propagation bolus from the oral cavity, pharynx and esophagus. Trace laryngeal penetration seen with puree. On oral administration of solid food there is normal oral mastication and propagation bolus from the oral cavity through the pharynx and esophagus. FLUOROSCOPY TIME: 2 minutes 42 seconds. DOSE AREA PRODUCT: 2346 uGy-m2 (microgray-meter squared) FL/FL Modified Barium Swallow IMPRESSION: Laryngeal penetration and aspiration with thin barium and puree. Correlate with speech therapy report. Electronically signed by: David Saunders MD 05/14/2025 03:15 PM EDT
--- NOTE | 2025-05-15 10:13 | MHC.SL.IMP ---
Date of Plan of Treatment: 05/14/25 Onset of Symptoms/Illness: 04/10/25 Date Treatment Started: 05/14/25 Admitting Diagnosis: Hx CVA, diverticulosis Primary Speech & Language Diagnosis: R13.12 Oropharyngeal Phase Dysphagia Reason for Today's Visit: 24630 Modified Barium Swallow Study Pre-evaluation Dietary Consistencies: Regular Pre-evaluation Liquid Consistency: Thin Pre-evaluation Medication Administration: Whole with Liquid Medical History: Modified Barium Swallow Study Fluoroscopic Evaluation of Swallowing Function CPT Code 59101 Evaluation Year: 2024 Reason for Study: Difficulty swallowing Referring Physician: Tk Guerra MD Evaluating Clinician: Karina Marrero MA, CCC-LOG LOADER HELPER Study Number: 1 Patient Name: Luis Eduardo Ling Status: Outpatient, Wheelchair Age: 69 Sex: Male Medical History Medical History CVA (cerebral vascular accident) Diverticulosis Benign colon polyp Rosacea Gout Hyperuricemia High cholesterol Hyperlipemia HTN (hypertension) Surgical History Hx of colonoscopy H/O cardiac catheterization History of tonsillectomy History of surgery on arm H/O umbilical hernia repair Current (pre-evaluation) Intake/Diet: Route: PO Diet Grade: Regular Liquid Consistencies: Thin Pre-Study Functional Oral Intake Scale (FOIS): 7- Total oral intake with no restrictions Pain: None reported at time of study SUBJECTIVE: Patient is a 69 year old male followed by Dr. Guerra from Pulmonology and Dr. 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 There is redemonstrated chronic appearing encephalomalacia and gliosis within the high right frontal lobe.? CT abdomen and pelvis incidentally noted 8 mm nodule. Patient complained of difficulty swallowing, thus was referred for a modified barium swallow study for further evaluation. He was accompanied to this appointment by his caregiver, who reports concerns regarding patient?s coughing at meal time. She says he sometimes turns red in the face, resulting in him having a more difficult time breathing. She also mentioned patient has a tendency to ?eat quickly.? She reports patient needs assistance with feeding at all times. He uses a wheelchair and has night time nanny caregivers at home. Pertinent medical history includes CVA and diverticulosis. Oral Motor Exam Facial Symmetry: Symmetrical Mouth Occlusion: Normal Oral-Facial Teeth Characteristics: Intact/Normal Oral-Facial Smile (Lips) Description: Normal Oral-Facial Puff Cheeks Description: Normal Tongue Size: Normal Tongue Excursion Description: Normal Tongue Range of Movement Description: Normal Tongue Speed of Movement Description: Reduced Tongue Strength of Movement (against opposing pressure): Reduced Tongue Movement Characteristics: Normal/Absent Is patient able to manage secretions?: Yes Food and Liquid Trials: Oral Impairment: Lip Closure: 4=Escape progressing to mid-chin. Oral Impairment: Tongue Control During Bolus Hold: 2=Posterior escape of less than half of bolus Oral Impairment: Bolus Preparation/Mastication: 1=Slow prolonged chewing/mashing with complete re-collection Oral Impairment: Bolus Transport/Lingual Motion: 1= Delayed initiation of tongue motion Oral Impairment: Oral Residue: 2=Residue collection on oral structures Oral Impairment:Initiation of Pharyngeal Swallow: 3=Bolus head in pyriforms Pharyngeal Impairment: Soft Palate Elevation: 0=No bolus between soft palate (SP)/pharyngeal wall (PW) Pharyngeal Impairment: Laryngeal Elevation: 0=Complete superior movement of thyroid cartilage (see description) Pharyngeal Impairment: Anterior Hyoid Excursion: 1=Partial anterior movement Pharyngeal Impairment: Epiglottic Movement: 1=Partial inversion Pharyngeal Impairment: Laryngeal Vestibular Closure:: 1=Incomplete: narrow column air/contrast in laryngeal vestibule Pharyngeal Impairment: Pharyngeal Stripping Wave: 0=Present: complete Pharyngeal Impairment: Pharyngeal Contraction: Did not test Pharyngeal Impairment: Pharyngoesophageal Segment Openin=Complete distension and complete duration: no obstruction of flow Pharyngeal Impairment: Tongue Base (TB) Retraction: 3=Wide column of contrast/air between TB and posterior PW Pharyngeal Impairment: Pharyngeal Residue: 2=Collection of residue within or on pharyngeal structures Pharyngeal Impairment: Esophageal Clearance Upright Position: Did not test Impressions and Recommendations OBJECTIVE: Time-out: performed at 15:00 Evaluation Start: 14:30; Stop: 14:35 Patient Positioning: Seated 70-90 degrees Viewing Planes: LATERAL ONLY Contrast: MBSImP? Standardized Protocol using commercially prepared, standardized Barium viscosities, including: Varibar? THIN LIQUID (40% w/v, <15 cps) , Varibar? NECTAR (40% w/v, <150-450 cps) , Varibar? PUDDING (40% w/v, <5713-4248 cps) , 1/2 Shortbread Cookie (1 x1 x.25 ) [facility] ID: [id number] [facility] Results: Lip closure for intraoral bolus containment resulted in bolus escape that progressed to the mid-chin. Tongue control during bolus hold resulted in posterior escape of less than half of the bolus. Bolus preparation and mastication resulted in slow, prolonged chewing/mashing but with complete re-collection. Bolus transport/lingual motion demonstrated delayed initiation of tongue motion. Oral residue was a collection on oral structures. Initiation of the pharyngeal swallow occurred when the bolus head was in the pyriform sinuses. Soft palate elevation resulted in no bolus between the soft palate and the pharyngeal wall. Laryngeal elevation demonstrated complete superior movement of the thyroid cartilage with complete approximation of the arytenoids to the epiglottic petiole. Anterior hyoid excursion demonstrated partial anterior movement. Epiglottic movement resulted in partial inversion. Laryngeal vestibular closure was incomplete, with a narrow column of air/contrast noted within the laryngeal vestibule at the height of the swallow. Pharyngeal stripping wave was present and complete. Pharyngeal contraction could not be determined due to logistical reasons not related to physiologic impairment. Pharyngoesophageal segment opening was completely distended for complete duration with no obstruction of bolus flow. Tongue base retraction allowed a wide column of contrast or air between the retracted tongue base and the posterior pharyngeal wall. Pharyngeal residue was a collection of residue within or on pharyngeal structures. Esophageal clearance in the upright position could not be assessed due to logistical reasons not related to physiologic impairment. Oral Impairment Score: 12 Pharyngeal Impairment Score: 8 (absence of score, component 13) Esophageal Impairment Score: --- (absence of score, component 17) Laryngeal Penetration and Aspiration: Neither penetration nor aspiration was observed in today's study with Cookie, Pudding-thick. Both Penetration and Aspiration were observed in today's study. Upper [place]-thick Contrast entered the airway, remained above the vocal folds, and was ejected from the airway. Thin Contrast entered the airway, passed below the vocal folds, and no effort was made to eject. ASSESSMENT: This exam was performed by the radiologist and the speech pathologist. Patient was seated upright in a wheelchair for lateral view. He required 1:1 assistance feeding and trialed the following consistencies: -Thin (individual straw sips) -[place] thick (individual straw sips) -Puree (mixture applesauce w/ barium pudding) -Regular (shortbread cookies coated w/ barium pudding) Note moderate impairments of the oral phase. There was anterior escape of contrast spilling from the mouth and trickling down the chin. Poor tongue control with premature posterior spillage from the oral cavity and contrast collecting in the valleculae prior to initiation of the pharyngeal swallow trigger. Note pattern of rotary chewing, which was prolonged with piece meal clearing of the oral cavity. Patient displayed mild residue on the palate, floor of mouth, and tongue, which cleared with 1-2 dry swallows. Posterior bolus transport was delayed in initiation, but with brisk tongue movement. Pharyngeal swallow trigger was also delayed, initiated as the bolus head reached the pyriforms. No evidence of nasopharyngeal reflux. Pharyngeal phase was mildly impaired. Complete laryngeal elevation, with partial epiglottic inversion and partial laryngeal vestibular closure. Reduced tongue base retraction likely contributed to pharyngeal residue. There was mild to moderate collection of contrast on the tongue base and posterior pharyngeal wall, and in the valleculae and pyriforms, which completely cleared with dry swallows. -Thin liquid: Trace subglottic aspiration during the swallow with no spontaneous cough. -[place] thick liquid: Flash penetration seen intermittently during the swallow. Trace contrast entered the airway above the vocal folds and spontaneously cleared with no subsequent aspiration. -Pureed solid: No aspiration or penetration. -Regular solid: No aspiration or penetration. The following compensatory strategies have not been used until today's study, but when employed, improved swallowing function: [place]-thick Liquid eliminated Aspiration Bolus Volume Change decreased Penetration Rate of Ingestion Change decreased Penetration Additional Swallow(s) per Bolus eliminated Oral Residue, Pharyngeal Residue Liquid Intake Recommendation: [place] Thick Liquid Intake Strategies: Small Sips, Double Swallow Dietary Recommendations: Chopped/Advanced (NDD3) Medication Administration: Whole with Puree Please contact the pharmacy regarding appropriate crushable or liquid drug formulations that are available whenever modified delivery is recommended. Compensatory Strategies Recommended: Sitting Upright (90 deg), Double Swallow, Small Bites and Sips, Alternate Liquids/Solids, Rate of Ingestion Change, Avoid Specific Foods Supervision during eating and or drinking: Total Assistance (1:1) Recommended Treatments: Base of Tongue Exercises, Pharyngeal Resistive Exer, Compens. Strategy Educat. Recommendation for Speech Therapy: Outpatient Speech Therapy Text Comment: Intake Recommendations: Route: PO Diet Grade: Chopped/Advanced (NDD3) Liquid Consistencies: [place] Post-Study Functional Oral Intake Scale (FOIS): 5- Total oral intake of multiple consistencies requiring special preparation Patient presents with mild to moderate oropharyngeal dysphagia, characterized by delayed oral phase and poor tongue control, delayed pharyngeal swallow trigger, and incomplete airway protection. There was trace subglottic aspiration on trials of thin consistency. Flash penetration seen with nectar thick, with no subsequent aspiration. Mild to moderate oral and pharyngeal residue cleared with dry swallows. Recommend CHOPPED/ADVANCED (NDD3) solids for ease of mastication and NECTAR THICK liquids, pills WHOLE or CRUSHED in PUREE as tolerated/preferred by patient. Per caregiver, patient needs 1:1 assistance feeding. He is recommended the following strategies to maximize safety: -ensure small individual sips by tilting cup or pinching straw -avoid consecutive sipping -administer small bites -cue as needed to chew food well -1-2 dry swallows after each bite/sip -alternate bites of solids with liquid wash -ensure upright 90 degree position during PO intake Therapy Recommendations: Recommend speech therapy 1x weekly x 8 weeks to provide further education in regards to MBSS findings and recommended diet, train compensatory feeding strategies, and to trial pharyngeal strengthening exercises. Frequency per Week: 1 Number of Weeks: 8 The following compensatory strategies and/or therapeutic exercises will be part of the upcoming therapy/management plan: [place]-thick Liquid Bolus Volume Change Rate of Ingestion Change Additional Swallow(s) per Bolus Half-Way Goals: ? The patient will tolerate the least restrictive diet with a safe/efficient swallow to maintain adequate nutrition and hydration. ? The patient will demonstrate improved swallowing function via repeat clinical evaluation, videoendoscopy/videofluoroscopy and/or patient self-rating scores. ? The patient and/or family will participate in further education for swallowing goals. Short Term Goals: ? Diet - The patient will tolerate a modified dysphagia diet with nectar thick liquids without signs or symptoms of penetration/aspiration 100% of the time. ? Guidelines - The patient will comply with/recall the following guidelines/strategies 100% of the time with minimal cuing: [place]-thick Liquid, Bolus Volume Change, Rate of Ingestion Change, Additional Swallow(s) per Bolus. ? Independent Home Exercise - The patient will perform 10 repetitions of the Effortful Swallow, Skye Maneuver, Meg Maneuver 2 times a day with 100% accuracy and minimal cuing as part of a home exercise program. ? Structured Therapy - The patient will demonstrate 100% accuracy and require minimal cuing in structured swallowing therapy with the LOG LOADER HELPER using the following exercises/therapy approaches and therapy assisted devices: Effortful Swallow, Skye Maneuver, Meg Maneuver, . ? Education - The patient, family, caregiver will verbalize/demonstrate understanding of the results of this evaluation, the above recommendations, and the swallowing guidelines. Clinician - Supplemental, Miscellaneous Communication: It is important to note MBSS objective studies are snapshots in time and Patient function might vary with factors such as time of day or concomitant medical conditions. For this reason, the final treatment plan for this patient should rest with their medical care team. Additional recommendations should be considered with the totality of the Patient in mind. Thank for the opportunity to participate in the care of this patient. If you have any questions about the content of this report, please contact the [facility] at [facility]. Education: Education regarding findings from today's study and plans for therapy were provided to Patient and family/caregiver through Verbal Instruction. Understanding was expressed by the Patient and family/caregiver. Frequency/Duration: 1x weekly x 8 weeks Date Range for Service Requested: Timeline to reassess: 3 months Long Wall Shear Operator Clinician/Clinical Fellow: No Supervisory Statement: N/A Speech Language Pathologist: Karina Marrero M.A., [facility]-LOG LOADER HELPER
== END 2025-05-14 13:42 | disposition home or self-care (01) ==
LOC: HO.XRAY 13:41
PROVIDERS: PCP Internal Medicine; Visit Provider Internal Medicine Pulmonary Disease
DX: G90.3 Multi-system degeneration of the autonomic nervous system (principal); G23.8 Other specified degenerative diseases of basal ganglia
CPT/HCPCS: 74230; 92611

== ENCOUNTER → 2025-05-14 14:30 | Outpatient (BNV) | payer BC, SELFPAY | PROVIDERS: PCP Internal Medicine; Visit Provider Radiology Diagnostic Radiology | DX: G90.3 Multi-system degeneration of the autonomic nervous system (principal) | CPT/HCPCS: 74230 ==